=== PATIENT | female | born 1930 | race African-American/Black ===

== ENCOUNTER 2020-12-26 13:18 | Emergency (ER) | payer OTHER ==
--- OUTSIDE RECORDS SUMMARY | 2020-12-26 13:27 | XMS REPORT | Continuity of Care Document ---
:1930 Author Organization [facility] t Address [address] [place] [address] Care Team Providers Name Role Phone BOUBACAR Primary Care Physician Unavailable Pob, Lab Main Attending Clinician Unavailable Doctor Unassigned, Name Attending Clinician Unavailable Pili Waggoner Attending Clinician PRATIK Attending Clinician Unavailable Carlos CAMARA Attending Clinician ALBERTO ARENAS Attending Clinician Unavailable Mario Attending Clinician Abhi Acosta Attending Clinician SHELBIE Attending Clinician Unavailable Jose Reyes Attending Clinician Ibrahima Kasper Attending Clinician Delta CHUNG Admitting Clinician Unavailable SHELBIE Admitting Clinician Unavailable Ibrahima Kasper Admitting Clinician Payers Payer Name Policy Type Policy Number Effective Date Expiration Date S our [employer] G[employer]US [id number] 2020 MEDICARE HMO 00:00:00 Problems Condition Condition Condition Status Onset Resolution Last Treating Co mments Source Name Details Category Date Date Treatment Clinician Date ABD PAIN Diagnosis Active 2017-12-20 M emoria 2-18 14:26:00 l ABD PAIN 11:58: [place] n 00 Active 12/07/2017 [facility] COUGH Diagnosis Active 2017-11-20 Mem oria 11-19 04:43:00 l COUGH 00:00: Harry 00 Active 11/19/2017 [facility] Kamas HYPOTENSIO Diagnosis Active 2016-05-15 Memoria N 05-15 11:43:00 l 09:00: Kamas HYPOTENSIO 00 N Active 05/15/2016 [facility] CHEST Diagnosis Active 2016-05-17 Mem oria PAIN, 05-15 10:12:00 l POSSIBLE CHEST 09:00: Kamas ACS, UTI PAIN, 00 POSSIBLE ACS, UTI Active 05/15/2016 [facility] SMALL Diagnosis Active 2014-05-09 Mem oria BOWEL 05-07 13:11:00 l OBSTRUCTIO SMALL 00:00: Nataly nn N BOWEL 00 OBSTRUCTIO N Active 05/07/2014 [facility] DIARRHEA, Diagnosis Active 2012-03-10 Memoria VOMITING 03-09 10:57:00 l 00:00: Kamas DIARRHEA, 00 VOMITING Active 03/09/2012 [facility] URINARY Diagnosis Active 2012-02-24 Me moria PAIN -07 09:47:00 l URINARY 06:00: Kamas PAIN 00 Active 02/24/2012 [facility] SYNCOPE Diagnosis Active 2011-12-17 Me moria 2-15 08:37:00 l SYNCOPE 10:00: Harry 00 Active 12/04/2011 [facility] HIGH BLOOD Diagnosis Active 2011-11-03 Memoria PRESSURE 1-15 12:50:00 l HIGH 00:00: Kamas BLOOD 00 PRESSURE Active 11/03/2011 [facility] CVA Diagnosis Active 2011-11-04 Mem oria 1-15 18:59:00 l CVA 00:00: Harry 00 Active 11/03/2011 [facility] Acute Problem 2018-02-26 Memor ia pharyngiti 15:28:19 l s, Acute Harry unspecifie pharyngiti d s, unspecifie d 02/26/2018 [facility] Essential Problem 2018-03-15 Me moria (primary) 11:43:28 l hypertensi [place] on Essential (primary) hypertensi on 03/15/2018 [facility] Type 2 Problem 2018-03-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 11:43:28 l mellitus Type 2 [place] n without diabetes complicati mellitus ons without complicati ons 03/15/2018 [facility] intermediate designer Problem 2018-03-15 Me moria (current) 11:43:28 l use of Long Harry oral term hypoglycem (current) ic drugs use of oral hypoglycem ic drugs 03/15/2018 [facility] [D]Headach Problem Active 2018-03-15 M emoria e 11:43:28 l (context-d [place] n ependent [D]Headach category) e (context-d ependent category) Active Problem 03/15/2018 [facility] Malignant Problem Active 2018-03-15 Me moria tumor of 11:43:28 l colon Kamas (disorder) Malignant tumor of colon (disorder) Active Problem 03/15/2018 [facility] Cerebrovas Problem Active 2018-03-15 M emoria cular 11:43:28 l accident Harry (disorder) Cerebrovas cular accident (disorder) Active Problem 03/15/2018 [facility] Diabetes Problem Active 2018-03-15 Mem oria mellitus 11:43:28 l (disorder) Diabetes He rmann mellitus (disorder) Active Problem 03/15/2018 [facility] Hypertensi Problem Active 2018-03-15 M emoria ve 11:43:28 l disorder, Kamas systemic Hypertensi arterial ve (disorder) disorder, systemic arterial (disorder) Active Problem 03/15/2018 [facility] Hyperthyro Problem Active 2018-03-15 M emoria idism 11:43:28 l (disorder) [place] Hyperthyro idism (disorder) Active Problem 03/15/2018 [facility] Numbness Problem Active 2018-03-15 Mem oria of face 11:43:28 l (finding) Numbness Her genao of face (finding) Active Problem 03/15/2018 [facility], [facility] Transient Problem Active 2018-03-15 Me moria ischemic 11:43:28 l attack Kamas (disorder) Transient ischemic attack (disorder) Active Problem 03/15/2018 [facility] Asthenia Problem Active 2018-03-15 Mem oria (finding) 11:43:28 l Asthenia [place] n (finding) Active Problem 03/15/2018 [facility] [D]Headach Problem Active 2012-03-12 M emoria e 09:30:35 l Harry [D]Headach e Active Problem 03/12/2012 [facility] Weakness Problem Active 2012-03-12 Mem oria 09:30:35 l Weakness [place] Active Problem 03/12/2012 [facility] Temporal Problem Active 2014-01-12 Mem oria Arteritis 23:02:23 l Temporal [place] Arteritis Active [facility] Type 2 Problem Active 2014-01-12 Memor ia Diabetes 23:02:23 l Mellitus Type 2 [place] Diabetes Mellitus Active [facility] Atheroscle Problem Active 2014-01-12 M emoria rosis 23:02:23 l Kamas Atheroscle rosis Active [facility] A Fall Problem Active 2014-01-12 Memor ia 23:02:23 l A Fall Kamas Active [facility] Insomnia Problem Active 2014-01-12 Mem oria 23:02:23 l Insomnia [place] n Active 01/12/2014 [facility] 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 Active 4 [facility] Headache Problem Active 2014-01-12 Mem oria 23:02:23 l Headache [place] n Active 01/12/2014 [facility] Neck Pain Problem Active 2014-01-12 Me moria 23:02:23 l Neck Kamas Pain Active 4 [facility] Disturbanc Problem Active 2014-01-12 M emoria e Of Gait 23:02:23 l Harry Disturbanc e Of Gait Active 4 [facility] Occipital Problem Active 2014-01-12 Me moria Neuralgia 23:02:23 l Kamas Occipital Neuralgia Active [facility] Peripheral Problem Active 2014-01-12 M emoria Neuropathy 23:02:23 l Kamas Peripheral Neuropathy Active 01/12/2014 [facility] CVA Diagnosis Active 2011-11-04 Mem oria 18:59:00 l CVA Kamas Active [facility] SYNCOPE Diagnosis Active 2011-12-17 Me moria AND 08:37:00 l COLLAPSE SYNCOPE Nataly nn AND COLLAPSE Active [facility] SMALL Diagnosis Active 2014-05-09 Mem oria INTEST INJ 13:11:00 l NEC-CL SMALL Harry INTEST INJ NEC-CL Active [facility] History of Past Illness Condition Condition Condition Status Onset Resolution Last Treating Co mments Source Name Details Category Date Date Treatment Clinician Date Nausea Problem 2018-03-15 2018-03-15 M emoria - 11:43:28 11:43:28 l Nausea 06:00: Harry 00 8 03/15/2018 [facility] Urinary Problem 2018-03-15 2018-03-15 Memoria tract - 11:43:28 11:43:28 l infection, Urinary 06:00: Her genao site not tract 00 specified infection, site not specified 12/07/2017 03/15/2018 [facility] Cough Problem 2018-02-26 2018-02-26 M emoria 2- 15:28:19 15:28:19 l Cough 04:22: Kamas 21 11/26/2017 02/26/2018 [facility] COUGH Problem 2018-02-26 2018-02-26 M emoria 2- 15:28:19 15:28:19 l COUGH 06:00: Kamas 00 11/20/2017 02/26/2018 [facility] Allergies, Adverse Reactions, Alerts Allergy Allergy Status Severity Reaction(s) Onset Inactive Treating Comm ents Source Name Type Date Date Clinician No Known No Known Active Memori a Drug Drug l Allergie Allergie [place] miller s Family History Family Member Diagnosis Comments Start Date Stop Date Source Unknown Family Family History 2014-01-12 2014-01-12 Kade Deras Member 23:02:23 23:02:23 Social History Social Habit Start Date Stop Date Quantity Comments Source Social History 2014-01-12 2014-01-12 Aydee greenfield 23:02:23 23:02:23 Smoking Status Start Date Stop Date Source Social History Aydee Mcdonald Medications Ordered Filled Start Stop Current Ordering Indication Dosage Frequency Signature Comments Components Source Medication Medication Date Date Medication? Clinician (SIG) Name Name Ondansetron 2018- Yes 4 mg = 1 Me moria 4 MG 2-19 tab, PO, l Disintegrat 03:53: TID, PRN He rmann ing Tablet 00 Nausea / Vomiting, Dissolve tab under tongue, # 10 tab, 0 Refill(s) cefdinir No 300 mg = 1 Mem oria 300 MG Oral 2-19 cap, PO, l Capsule 03:53: BID, X 10 Nataly nn 00 day, # 20 cap, 0 Refill(s) Sodium 2017- No 250 mL, Memoria Chloride 2-19 Route: l 0.9% IV 02:17: IVPB, Kamas Start date: 12/07/17 20:17:00 [employer], Duration: 30 day, Stop date: 01/06/18 21:16:00 CDT, PRN Line Flush Ceftriaxone No Notes: Amandeep demond 2-19 (Same As: l 01:57: Rocephin). Harry Use with 100 mL NS and infuse over 30 min MEDICATION WASTE Product Size: 1000 mg Product Wasted: _0__ mg Omnipaque 2017- No Notes: Memori a 300 -19 (Same l injectable 00:14: as:Omnipaq H ermann solution 00 ue 300). WASTE: F/P - Black; E - Municipal Trash Bin Ondansetron 2018-0 No Notes: Amandeep demond 2-19 (Same as: l 00:13: Zofran) Kamas MEDICATION WASTE Product Size: 4 mg Product Wasted: ___ mg Sodium 2017-0 No 1,000 mL, Memori a Chloride 2-19 1000 l 0.9% 00:12: ml/hr, Harry (Bolus) IV 00 Infuse Over: 1 hr, Route: IV, 1,000, Drug form: INJ, ONCE, Priority: STAT, Dosing Weight 111.818 kg, Start date: 12/07/17 18:12:00 [employer], Stop date: 12/07/17 18:12:00 [employer] Saline No Notes: Memoria Flush 0.9% 12-07 (Same as: l 18:35: BD Harry 00 Posiflush) benzonatate No 100 mg = 1 Memoria 100 MG Oral 11-20 cap, PO, l Capsule 11:50: TID, X 7 [place] [Tessalon 00 day, # 21 Perles] cap, 0 Refill(s) Acetaminoph No 1 tab, Amandeep demond en 300 MG / 11-20 Route: PO, l Codeine 10:41: Drug Form: Herm jolynn Phosphate 00 TAB, 30 MG Oral Dosing Tablet Weight [Tylenol 115.909, with kg, ONCE, Codeine #3] STAT, Start date: 11/20/17 4:41:00 [employer], Stop date: 11/20/17 4:41:00 [employer] cefpodoxime Yes 200 mg = 1 Memoria 200 MG Oral 7-29 tab, PO, l Tablet 13:59: Q12H, X 7 [place] [Vantin] 13 day, # 14 tab, 0 Refill(s), Pharmacy: [facility] [id number] cefpodoxime No 200 mg = 1 Memoria 200 MG Oral 7-29 tab, PO, l Tablet 13:53: Q12H, X 7 [place] [Vantin] 00 day, # 14 tab, 0 Refill(s), Pharmacy: [facility] [id number] Hydrochloro No Notes: Amandeep demond thiazide 25 -28 (Same as: l MG Oral 14:00: Hydrodiuri Herm jolynn Tablet 00 l) With food. Clobetasol No Notes: 15 Me moria Propionate 7-28 gm tube l 0.5 MG/ML 14:00: (Same As: Her genao Topical 00 Temovate) Cream Aspirin 81 No Notes: Do Me moria MG Enteric 7-28 not crush l Coated 14:00: or chew. Kamas Tablet 00 (Same As: Ecotrin) Citalopram No Notes: Memor ia 7-28 (Same As: l 14:00: CeleXA) Toprol-XL No Notes: Memori a 50 mg oral - (Same as: l tablet, 09:17: Toprol XL) Herm jolynn extended 00 May split release tab, but do not crush. 24 HR No Notes: Memoria Metoprolol 7-28 (Same as: l Tartrate 50 09:16: Toprol XL) Kamas MG Extended May split Release tab, but Tablet do not [Toprol] crush. Lisinopril No Notes: Memor ia 7-28 (Same as: l 09:16: Prinivil, Zestril) Simvastatin No Notes: Amandeep demond - (Same as: l 02:00: Zocor) Saline No Notes: Memoria Flush 0.9% 05-16 (Same as: l 02:00: BD Posiflush) Rocephin No Notes: Memoria 7- (Same As: l 01:00: Rocephin). Use with 100 mL NS and infuse over 30 min MEDICATION WASTE Product Size: 1000 mg Product Wasted: ___ mg Metformin No Notes: Memori a hydrochlori -27 (Same as: l de 500 MG 22:00: Glucophage He rmann Oral Tablet ) Take with meal Labetalol No Notes: Memori a 7-27 With food. l 22:00: (Same as:Trandat e, Normodyne) Hydralazine No Notes: Amandeep demond Hydrochlori -27 (Same as: l de 100 MG 22:00: Apresoline He rmann Oral Tablet ) May interfere w/enteral feedings - Take With Food gabapentin No Notes: Memor ia 100 MG Oral -27 (Same as: l Capsule 22:00: Neurontin) Carbamazepi No Notes: Amandeep demond ne 7-27 With food. l 22:00: (Same As: Tegretol) Acetaminoph No Notes: Amandeep demond en 325 MG / 05-15 (Same as: l Hydrocodone 18:47: Rogers Nataly nn Bitartrate 00 325/5) Do 5 MG Oral not exceed Tablet 4gm/day of acetaminop hen. eslicarbaze Yes TK 1 T PO M emoria pine 05-15 HS l acetate 200 18:45: [place] n MG Oral 00 Tablet [Aptiom] Alprazolam No Notes: Memor ia 0.25 MG 05-15 With food l Oral Tablet 18:45: or milk Her genao 00 (Same as: Xanax) Hydralazine Yes 100 mg = 1 Memoria Hydrochlori 05-15 tab, PO, l de 100 MG 18:43: BID, # 60 Her genao Oral Tablet 00 tab, 0 Refill(s) carBAMazepi Yes 200 mg = 1 Memoria ne 200 mg 05-15 tab, PO, l oral tablet 18:43: BID, # 60 H ermann 00 tab, 3 Refill(s) Acetaminoph Yes 0 Memori a en 325 MG / 05-15 Refill(s) l Hydrocodone 18:43: Hcino n Bitartrate 00 5 MG Oral Tablet Alprazolam Yes 0.25 mg = Me moria 0.25 MG 05-15 1 tab, PO, l Oral Tablet 18:43: BID, PRN He rmann 00 anxiety, stress, # 20 tab, 0 Refill(s) lisinopril Yes 20 mg = 1 Me moria 20 mg oral 05-15 tab, PO, l tablet 18:43: Daily, # Kamas 00 30 tab, 0 Refill(s) labetalol Yes 200 mg = 1 Me moria 200 mg oral 05-15 tab, PO, l tablet 18:43: BID, # 180 Nataly nn 00 tab, 0 Refill(s) Saline No Notes: Memoria Flush 0.9% 05-15 (Same as: l 18:42: BD Harry 00 Posiflush) Nitroglycer No Notes: Amandeep demond in 05-15 (Same l 18:42: as:Nitroqu Kamas 00 ick, Nitrostat) "Do Not Crush" Sublingual tablet Rocephin No Notes: Memoria 05-15 (Same As: l 16:35: Rocephin). Harry 00 Use with 100 mL NS and infuse over 30 min MEDICATION WASTE Product Size: 1000 mg Product Wasted: ___ mg Vasotec No 1.25 mg, Memori a 05-15 Route: IV, l 15:14: ONCE, Kamas 00 Dosing Weight 116.364, kg, Priority: STAT, Start date: 05/15/16 10:14:00 CDT, Stop date: 05/15/16 10:14:00 CDT Aspirin No 325 mg, Memoria 05-15 Route: PO, l 15:13: Drug form: Kamas 00 TAB, ONCE, Dosing Weight 116.364, kg, Priority: STAT, Start date: 05/15/16 10:13:00 CDT, Stop date: 05/15/16 10:13:00 CDT Docusate Yes 100 mg, Memori a Sodium 100 7-22 PO, BID, # l MG Oral 17:21: 60 cap, 0 Nataly nn Capsule 00 Refill(s) Senna-gen Yes 8.6 mg = 1 Me moria 8.6 mg oral 7-22 tab, PO, l tablet 17:21: Bedtime, Kamas 00 for constipati on, # 25 tab, 0 Refill(s) gabapentin Yes 200 mg = 2 M emoria 100 MG Oral 7-21 cap, PO, l Capsule 20:06: QPM, # 720 Herm jolynn 00 cap, 0 Refill(s) simvastatin Yes 40 mg = 1 M emoria 40 mg oral 7-21 tab, PO, l tablet 20:06: Bedtime, # Nataly nn 00 30 tab, 0 Refill(s) Metformin Yes 500 mg = 1 Me moria hydrochlori 7-21 tab, PO, l de 500 MG 20:06: BID, # 30 Her genao Oral Tablet 00 tab, 0 Refill(s) citalopram Yes 20 mg = 1 Me moria 20 mg oral 7-21 tab, PO, l tablet 20:06: Daily, # Harry 00 30 tab, 0 Refill(s) Hydrochloro Yes 25 mg = 1 M emoria thiazide 25 -21 tab, PO, l MG Oral 20:06: Daily, # [place] n Tablet 00 30 tab, 0 Refill(s) metoprolol Yes 25 mg = 1 Me moria tartrate 25 -21 tab, PO, l mg oral 20:06: Daily, # [place] n tablet 00 60 tab, 0 Refill(s) Clobetasol Yes 1 appl, Amandeep demond Propionate 05-09 TOP, l 0.5 MG/ML 20:06: Daily, # Herm jolynn Topical 00 15 gm, 0 Cream Refill(s) metoprolol No 25 mg, Memor ia tartrate 05-09 Route: PO, l 14:00: Drug form: Harry TAB, Daily, Dosing Weight 127.273, kg, Start date: 05/09/14 9:00:00, Duration: 30 day, Stop date: 06/07/14 9:00:00 Aspirin / No 81 mg, Memori a Calcium 05-09 Route: PO, l Carbonate 14:00: Drug form: tony ECTAB, Daily, Dosing Weight 127.273, kg, Start date: 05/09/14 9:00:00, Duration: 30 day, Stop date: 06/07/14 9:00:00 NS 1,000 mL No 1,000 mL, M emoria 05-09 Rate: 100 l 12:50: ml/hr, Infuse over: 10 hr, Route: IV, Dosing Weight 127.273 kg, Total Volume: 1,000, Start date: 05/09/14 7:50:00, Duration: 30 day, Stop date: 06/08/14 7:49:00 Benadryl No Notes: Memoria 05-09 (Same as: l 05:44: Benadryl) Citalopram No 20 mg, Memor ia 05-08 Route: PO, l 22:00: Drug form: Kamas TAB, BID, Dosing Weight 127.273, kg, Start date: 05/08/14 17:00:00, Duration: 30 day, Stop date: 06/07/14 9:00:00 Citalopram No Notes: Memor ia 7-20 (Same As: l 17:00: CeleXA) Hydrochloro No Notes: Amandeep demond thiazide 7-20 (Same as: l 17:00: Hydrodiuri l) With food. metoprolol No Notes: Memor ia extended 7-20 (Same as: l release 17:00: Toprol XL) Do Not Crush iodixanol No Special Memor ia 7-20 Instructio l 16:43: ns: Dose = 2.2ml/kg, Max dose = 150ml -- "To be infused by Radiology Staff ONLY" Hydralazine No Notes: Amandeep demond 7-20 (Same as: l 15:46: Apresoline ) Push over 5 minutes Iohexol No Notes: Memoria 7-20 (Same l 12:35: as:Omnipaq ue 350). Insulin, No Notes: Memoria Aspart, 7-20 Roll in l Human 05:51: palms of hands gently; Do not shake vigorously . (Same as: NovoLOG) "single patient use only" Stable for 28 days at room temperatur e. Expires in days from ____Date Glucagon No 1 mg, Memoria 7-20 Route: IM, l 05:51: Drug form: PDR/INJ, PRN, Dosing Weight 127.273, kg, PRN Abnormal Lab Result, Priority: STAT, Start date: 05/08/14 0:51:00, Duration: 30 day, Stop date: 06/07/14 0:50:00 Dextrose No 12.5 gm, Memor ia 50% Syringe 7-20 25 mL, l 05:51: Route: IVP, Drug Form: INJ, Dosing Weight 127.273, kg, PRN, PRN Blood Glucose Results, Start date: 05/08/14 0:51:00, Duration: 30 day, Stop date: 06/07/14 0:50:00 Metoprolol No Notes: Memor ia 7-20 (Same as: l 05:00: Lopressor) Push over 2 minutes Ofirmev No Notes: Memoria 7-20 Infuse l 03:26: over 15 minutes Do not exceed 4gm/day of acetaminop hen Protonix No Notes: For Mem oria 7-20 IV push l 01:02: reconstitu te with 10 ml 0.9% sodium chloride and push over 2 minutes. (Same as: Protonix) Enoxaparin No Notes: Memor ia 7-20 (Same as: l 01:00: Lovenox) Labetalol No 10 mg, 2 Amandeep demond 7-20 mL, Route: l 00:57: IVP, Drug form: INJ, Q6H, Dosing Weight 127.273, kg, PRN Hypertensi on, Start date: 05/07/14 19:57:00, Duration: 3 doses or times, Stop date: Limited # of times Aspirin 81 No Notes: Memor ia MG Chewable 7-20 Take with l Tablet 00:54: food. D5W 1/2NS + No Notes: Amandeep demond KCL 20mEq/L 7-20 PREMIX IV l 1000ml 00:30: - Do Not Kamas (Premix) 00 Alter 1,000 mL Calcium No 1,000 mL, Memor ia Chloride 7-20 1,000 l 0.0014 00:30: ml/hr, Kamas MEQ/ML / 00 Infuse Potassium Over: 1 Chloride hr, Route: 0.004 IV, 1,000, MEQ/ML / Drug form: Sodium INJ, ONCE, Chloride Priority: 0.103 STAT, MEQ/ML / Dosing Sodium Weight Lactate 127.273 0.028 kg, Start MEQ/ML date: Injectable 05/07/14 Solution 19:30:00, Duration: 1 doses or times, Stop date: 05/07/14 19:30:00 Citalopram Yes (Active) Me moria Hydrobromid 3-26 l e 20 MG 23:02: Harry Oral Tablet 23 MetFORMIN Yes (Active) Mem oria HCl 500 MG 3-26 l Oral Tablet 23:02: [place] n 23 Advil 200 Yes (Active) Mem oria MG Oral 3-26 l Capsule 23:02: Kamas 23 Hydrochloro Yes (Active) M emoria thiazide 25 3-26 l MG Oral 23:02: Kamas Tablet 23 Hydrocodone Yes (Active) M emoria -Acetaminop 3-26 l hen 5-325 23:02: Harry MG Oral 23 Tablet Gabapentin Yes ; Start Amandeep demond 100 MG Oral 07-05 Date: l Capsule 05:00: 07/05/2013 Herm jolynn 00 (Active) Hydrocodone Yes ; Start Mem oria -Acetaminop 07-05 Date: l hen 5-500 05:00: 07/05/2013 He rmann MG Oral 00 (Active) Tablet Protonix 40 Yes (Active) M emoria MG Oral 4-09 l Tablet 03:34: Harry Delayed 10 Release TraZODone Yes (Active) Mem oria HCl 50 MG 4-09 l Oral Tablet 03:34: Chino n 10 Vitamin D Yes (Active) Mem oria 05908 UNIT 4-09 l CAPS 03:34: Harry 10 Senokot Yes (Active) Memor ia TABS 4-09 l 03:34: Harry 10 Soma 350 MG Yes (Active) M emoria Oral Tablet 4-09 l 03:34: Harry 10 Vicodin HP Yes (Active) Me moria TABS 4-09 l 03:34: Harry 10 Vicodin HP Yes (Active) Me moria TABS 9-28 l 23:32: Harry 08 Hydrocodone Yes ; Start Mem oria -Acetaminop 06-29 Date: l hen 5-500 05:00: 06/29/2012 He rmann MG Oral 00 (Active) Tablet Simvastatin Yes (Active) M emoria 40 MG Oral 7-02 l Tablet 22:46: Harry 08 Lunesta 2 Yes (Active) Mem oria MG Oral 7-02 l Tablet 22:46: Harry 08 Metoprolol Yes (Active) Me moria Succinate 7-02 l 25 MG Oral 22:46: Harry Tablet 08 Extended Release 24 Hour ALPRAZolam Yes (Active) Me moria 0.25 MG 7-02 l Oral Tablet 22:46: [place]ino n 08 TraMADol Yes (Active) Amandeep demond HCl 50 MG 7-02 l Oral Tablet 22:46: Chino walker 08 Lomotil Yes Habacuc 1 tab, PO, M emoria oral tablet 03-10 Reynolds QID, PRN, l 06:17: Shravan 10 tab, Harry 47 for loose stool, Substituti on Allowed, Maintenanc e, TAB barium No Habacuc 450 mL, Memor ia sulfate 03-10 Reynolds Route: PO, l 210% oral 03:07: Shravan ONCE, Nataly nn suspension 00 Start date: 03/09/12 22:07:00, Stop date: 03/09/12 22:07:00 Sodium No Shayan E 250 mL, Amandeep demond Chloride 03-10 [place] Route: l 0.9% IV 02:46: IVPB, Harry 00 Start date: 03/09/12 21:46:00, Duration: 30 day, Stop date: 04/08/12 21:45:00, PRN Line Flush BD Normal No Shayan E 10 mL, Me moria Saline 03-10 [place] Route: l Flush 02:46: IVP, Drug Harry 00 Form: INJ, PRN, PRN Line Flush, Start date: 03/09/12 21:46:00, Duration: 30 day, Stop date: 04/08/12 21:45:00 ondansetron No Habacuc 4 mg, 2 Memoria 03-10 Reynolds mL, Route: l 02:38: Shravan IVP, Drug [place] n 00 form: INJ, ONCE, Priority: STAT, Start date: 03/09/12 21:38:00, Stop date: 03/09/12 21:38:00 pantoprazol No Habacuc 40 mg, M emoria e 03-10 Reynolds Route: l 02:38: Shravan IVP, Drug [place] n 00 form: INJ, ONCE, For IV push reconstitu te with 10 ml 0.9% sodium chloride and push over at least 3 minutes, Priority: STAT, Start date: 03/09/12 21:38:00, Stop date: 03/09/12 21:38:00 Saline 2011- No Habacuc 5 ml, Memoria Flush 0.9% 5-22 Reynolds Route: l 02:38: Shravan IVP, Drug [place] n 00 Form: INJ, PRN, PRN Line Flush, Start date: 03/09/12 21:38:00, Duration: 24 hr, Stop date: 03/10/12 21:37:00 Sodium No Habacuc 500 mL, Memor ia Chloride 5-22 Reynolds Rate: l 0.9% 02:38: Shravan 1,000 Harry (Bolus) IV 00 ml/hr, 500 mL Infuse over: 0.5 hr, Route: IV, Dosing Weight 113 kg, Total Volume: 500, Bolus dose, Priority: STAT, Start date: 03/09/12 21:38:00, Duration: 1 doses or times, Stop date: 03/09/12 22:07:00 metFORmin Yes Substituti Me moria 500 mg oral 5-22 on Allowed l tablet 01:58: Harry 23 Lunesta 2 Yes Substituti Me moria mg oral 5-22 on Allowed l tablet 01:58: Harry 06 ALPRAZOLam Yes Substituti M emoria 0.5 mg oral 5-22 on Allowed l tablet, 01:57: Harry disintegrat 25 ing tramadol 50 Yes Substituti Memoria mg oral 5-22 on Allowed l tablet 01:57: Harry 04 simvastatin Yes Substituti Memoria 40 mg oral 5-22 on Allowed l tablet 01:56: Harry 40 metoprolol Yes Substituti M emoria 25 mg oral 5-22 on Allowed l tablet, 01:56: Harry extended 01 release Macrobid Yes Ab J 100 mg, 1 Memoria 100 mg oral 5-07 Derrick cap, PO, l capsule 15:35: BID, 20 Harry 13 cap, Substituti on Allowed, CAP insulin Yes Substituti Amandeep demond aspart 5-07 on Allowed l 14:36: Harry 58 predniSONE Yes Substituti M emoria 5-07 on Allowed l 14:36: Harry 52 Simvastatin 2012-0 Yes ; Start Mem oria 40 MG Oral 12-11 Date: l Tablet 06:00: 12/11/2011 Nataly nn 00 (Active) Metoprolol Yes ; Start Amandeep demond Succinate 12-11 Date: l 25 MG Oral 06:00: 12/11/2011 H ermann Tablet 00 (Active) Extended Release 24 Hour PredniSONE 2011- Yes ; Start Amandeep demond 20 MG Oral 12-11 Date: l Tablet 06:00: 12/11/2011 Nataly nn 00 (Active) TraMADol Yes ; Start Memori a HCl 50 MG 12-11 Date: l Oral Tablet 06:00: 12/11/2011 Kamas 00 (Active) NovoLIN N Yes ; Start Memor ia 100 UNIT/ML 12-11 Date: l Subcutaneou 06:00: 12/11/2011 Harry s 00 (Active) Suspension Lunesta 2 Yes ; Start Memor ia MG Oral 12-11 Date: l Tablet 06:00: 12/11/2011 Nataly nn 00 (Active) ALPRAZolam Yes ; Start Amandeep demond 0.5 MG Oral 12-11 Date: l Tablet 06:00: 12/11/2011 Nataly nn 00 (Active) Metoprolol Yes ; Start Amandeep demond Succinate 12-11 Date: l ER 25 MG 06:00: 12/11/2011 Her genao Oral Tablet 00 (Active) Extended Release 24 Hour Metoprolol Yes Cathy 25 mg, 1 Memoria Succinate 2-17 [place] tab, PO, l ER 25 mg 19:10: on Daily, 30 Herm jolynn oral 41 tab, tablet, Substituti extended on release Allowed, ERTAB simvastatin Yes Umberto 40 mg, 1 Me moria 40 mg oral 2-17 Chibueze tab, PO, l tablet 17:35: Osuagwu Bedtime, Herm jolynn 39 30 tab, Substituti on Allowed, TAB predniSONE Yes Umberto 30 mg, 3 Mem oria 10 mg oral 2-17 [place]ze tab, PO, l tablet 17:35: Osuagwu Daily, 42 Her genao 32 tab, Substituti on Allowed, TAB Metoprolol No Cathy 25 mg, 1 Memoria Succinate 2-17 [place]rell tab, PO, l ER 25 mg 17:34: on Daily, 30 Herm jolynn oral 46 tab, tablet, Substituti extended on release Allowed, ERTAB Metoprolol 2011- No Cathy 25 mg, 1 Memoria Succinate 2-17 [place] tab, l ER 25 mg 17:30: on Route: PO, Her genao oral 00 Drug form: tablet, ERTAB, extended Daily, release Start date: 12/06/11 11:30:00, Duration: 30 day, Stop date: 01/05/12 9:00:00 predniSONE 2011- No Cathy 40 mg, Me moria 2-17 [place] Route: PO, l 15:00: on Drug form: Harry 00 TAB, Daily, Start date: 12/06/11 9:00:00, Duration: 30 day, Stop date: 01/04/12 9:00:00 simvastatin 2011-0 No Cathy 40 mg, 1 Memoria 2-17 [place] tab, l 03:00: on Route: PO, Harry 00 Drug form: TAB, Bedtime, Start date: 12/05/11 21:00:00, Duration: 30 day, Stop date: 01/03/12 21:00:00 Os-Devon 500 2011- No Cathy 1 tab, Me moria + D 2-16 [place] Route: l 23:00: on CHEW, Drug Harry Form: TAB, BID, Start date: 12/05/11 17:00:00, Duration: 30 day, Stop date: 01/04/12 9:00:00 Protonix 2011-0 No Cathy 40 mg, 1 Me moria 2-16 [place] tab, l 22:30: on Route: PO, Kamas 00 Drug form: ECTAB, Before Dinner, Start date: 12/05/11 16:30:00, Duration: 30 day, Stop date: 01/03/12 16:30:00 predniSONE 2011-0 No Cathy 30 mg, 3 Memoria 2-16 [place] tab, l 19:00: on Route: PO, Kamas 00 Drug form: TAB, Daily, Start date: 12/05/11 13:00:00, Duration: 30 day, Stop date: 01/04/12 9:00:00 trazodone No Cathy 25 mg, 0.5 Memoria 2-16 [place] tab, l 17:35: on Route: PO, Drug form: TAB, Bedtime, PRN Insomnia, Start date: 12/05/11 11:35:00, Duration: 30 day, Stop date: 01/04/12 11:34:00 Lunesta No Cathy 2 mg, Memori a 2-16 [place] Route: PO, l 17:30: on Drug form: TAB, Bedtime, PRN as needed for insomnia, Start date: 12/05/11 11:30:00, Duration: 30 day, Stop date: 01/04/12 11:29:00 glucagon No Cathy 1 mg, Memor ia 2-16 [place] Route: IM, l 16:22: on Drug form: PDR/INJ, PRN, PRN Blood Glucose Results, Start date: 12/05/11 10:22:00, Duration: 30 day, Stop date: 01/04/12 11:21:00 Dextrose No Cathy 25 gm, 50 M emoria 50% Syringe 2-16 [place] mL, Route: l 16:22: on IVP, Drug Form: INJ, PRN, PRN Blood Glucose Results, Start date: 12/05/11 10:22:00, Duration: 30 day, Stop date: 01/04/12 11:21:00 insulin No Cathy 4 unit, Amandeep demond aspart 2-16 [place]rell 0.04 mL, l 16:22: on Route: SUB-Q, Drug form: SOLN, TID-Before Meals, PRN Blood Glucose Results, Start date: 12/05/11 10:22:00, Duration: 30 day, Stop date: 01/04/12 10:21:00 NovoLog No low-dose Memori a FlexPen 2-16 sliding l 15:27: scale, Harry 23 SUB-Q, TID, Substituti on Allowed simvastatin No 40 mg, 1 Me moria 40 mg oral 2-16 tab, PO, l tablet 15:27: 30 tab, Kamas 10 Substituti on Allowed, TAB Protonix 40 Yes Cathy 40 mg, 1 Memoria mg oral 2-16 [place] tab, PO, l enteric 15:26: on Daily, 30 Nataly nn coated 55 tab, tablet Substituti on Allowed, ECTAB predniSONE No 20 mg, 1 Mem oria 20 mg oral 2-16 tab, PO, l tablet 15:26: BID, Harry 21 Substituti on Allowed Os-Devon 500 Yes Cathy CHEW, Mem oria + D 2-16 [place] Substituti l 15:25: on on Kamas 24 Allowed, Maintenanc e Lunesta 2 Yes Cathy 2 mg, 1 Me moria mg oral 2-16 [place]rell tab, PO, l tablet 15:24: on Bedtime, Harry 14 PRN, 30 tab, as needed for insomnia, Substituti on Allowed citalopram No 20 mg, 1 Mem oria 20 mg oral 2-16 tab, PO, l tablet 15:23: Daily, 30 Chino n 54 tab, Substituti on Allowed, TAB Saline No Cathy 5 ml, Memoria Flush 0.9% 2-16 [place] Route: l 03:00: on IVP, Drug Harry 00 Form: INJ, Q12H, Start date: 12/04/11 21:00:00, Duration: 30 day, Stop date: 01/03/12 9:00:00 docusate No Cathy 100 mg, 1 M emoria 2-15 [place] cap, l 23:00: on Route: PO, Harry 00 Drug form: CAP, BID, Start date: 12/04/11 17:00:00, Duration: 30 day, Stop date: 01/03/12 9:00:00 heparin No Cathy 5,000 Memori a 5000 2-15 [place]Darrell unit, 1 l units/mL 22:00: on mL, Route: Her genao injectable 00 SUB-Q, solution Drug form: INJ, Q8H, Start date: 12/04/11 16:00:00, Duration: 30 day, Stop date: 01/03/12 8:00:00 Saline 2011-0 No Cathy 5 ml, Memoria Flush 0.9% 2-15 [place] Route: l 21:55: on IVP, Drug Form: INJ, PRN, PRN Line Flush, Start date: 12/04/11 15:55:00, Duration: 30 day, Stop date: 01/03/12 16:54:00 Senna 2011- No Cathy 8.6 mg, 1 Amandeep demond Smooth 2-15 [place] tab, l 21:55: on Route: PO, Drug form: TAB, Q12H, PRN Constipati on, Start date: 12/04/11 15:55:00, Duration: 30 day, Stop date: 01/03/12 15:54:00 acetaminoph No Cathy 650 mg, 2 Memoria en 2-15 [place]rell tab, l 21:55: on Route: PO, Drug form: TAB, Q4H, PRN Pain/Fever , Start date: 12/04/11 15:55:00, Duration: 30 day, Stop date: 01/03/12 15:54:00 acetaminoph No Kj K 2 tab, Me moria en-hydrocod - [place] Route: PO, l one 325 21:03: Drug Form: Herm jolynn mg-5 mg 00 TAB, Q4H, oral tablet PRN Pain, Start date: 11/05/11 15:03:00, Duration: 30 day, Stop date: 12/05/11 15:02:00 acetaminoph 0 No Kj K 1 tab, Me moria en-hydrocod -17 [place] Route: PO, l one 325 21:02: Drug Form: Herm jolynn mg-5 mg 00 TAB, Q4H, oral tablet PRN Pain, Start date: 11/05/11 15:02:00, Duration: 30 day, Stop date: 12/05/11 15:01:00 morphine 2011-0 No Bri B 2 mg, Memor ia Sulfate 11-05 [place]va Route: l 19:20: IVP, ONCE, Start date: 11/05/11 13:20:00, Stop date: 11/05/11 13:20:00 morphine 2011- No Bri B 2 mg, Memor ia Sulfate 11-05 [place]va Route: l 19:12: IVP, ONCE, Harry 00 Start date: 11/05/11 13:12:00, Stop date: 11/05/11 13:12:00 Dextrose 5% No Kj K 1,000 mL, Memoria with 0.45% 11-05 [place] Rate: 75 l NaCl IV 06:00: ml/hr, Harry 1,000 mL 00 Infuse over: 13.3 hr, Route: IV, Total Volume: 1,000, Start date: 11/05/11 0:00:00, Duration: 30 day, Stop date: 12/04/11 23:59:00 calcium-vit No Kj K 1 tab, Me moria montesinos D 250 - [place] Route: PO, l mg-125 23:00: Drug Form: Nataly nn units oral 00 TAB, BID, tablet Start date: 11/04/11 17:00:00, Duration: 30 day, Stop date: 12/04/11 9:00:00 Pepcid No Kj K 20 mg, 2 Memor ia -16 [place] mL, Route: l 22:00: IVP, Drug form: INJ, Q24H, Start date: 11/04/11 16:00:00, Duration: 30 day, Stop date: 12/03/11 16:00:00 aspirin 325 No Kj K 325 mg, 1 Memoria mg tablet 16 [place] tab, l 15:00: Route: PO, Kamas Drug form: TAB, Daily, Start date: 11/04/11 9:00:00, Duration: 30 day, Stop date: 12/03/11 9:00:00 metoprolol No Kj K 25 mg, 1 M emoria -16 [place] tab, l 15:00: Route: PO, Harry Drug form: ERTAB, Daily, Start date: 11/04/11 9:00:00, Duration: 30 day, Stop date: 12/03/11 9:00:00 hydrochloro No Kj K 12.5 mg, Memoria thiazide 25 1-16 [place] 0.5 tab, l mg oral 15:00: Route: PO, Herm jolynn tablet 00 Drug form: TAB, Daily, Start date: 11/04/11 9:00:00, Duration: 30 day, Stop date: 12/03/11 9:00:00 Prinivil 2011- No Kj K 20 mg, 1 Mem oria 1-16 [place] tab, l 15:00: Route: PO, Kamas 00 Drug form: TAB, Daily, Start date: 11/04/11 9:00:00, Duration: 30 day, Stop date: 12/03/11 9:00:00 Xanax 2011- No Kj K 0.25 mg, 1 Amandeep demond 1-16 [place] tab, l 04:18: Route: PO, Harry 00 Drug form: TAB, Q6H, PRN Anxiety, Start date: 11/03/11 22:18:00, Duration: 30 day, Stop date: 12/03/11 22:17:00 Restoril No Kj K 15 mg, 1 Mem oria 1-16 [place] cap, l 04:18: Route: PO, Haryr 00 Drug form: CAP, Bedtime, PRN Sleep, Start date: 11/03/11 22:18:00, Duration: 30 day, Stop date: 12/03/11 22:17:00 tramadol 50 No Kj K 100 mg, 2 Memoria mg oral 1-16 [place] tab, l tablet 04:17: Route: PO, Nataly nn 00 Drug form: TAB, Q4H, PRN Pain, Start date: 11/03/11 22:17:00, Duration: 30 day, Stop date: 12/03/11 22:16:00 Dextrose 5% 2011- No Kj K 1,000 mL, Memoria with 0.45% 1-16 [place] Rate: 75 l NaCl IV 03:58: ml/hr, Harry 1,000 mL 00 Infuse over: 13.3 hr, Route: IV, Total Volume: 1,000, Start date: 11/03/11 21:58:00, Duration: 30 day, Stop date: 12/03/11 21:57:00 methylPREDN No Kj K 50 mg, 0.8 Memoria ISolone -16 [place] mL, Route: l 03:00: IV, Drug form: INJ, Q12H, Start date: 11/03/11 21:00:00, Duration: 30 day, Stop date: 12/03/11 9:00:00 glucagon No Kj K 1 mg, Memori a 11-04 [place] Route: IV, l 02:37: Drug form: Harry PDR/INJ, PRN, PRN Blood Glucose Results, Start date: 11/03/11 20:37:00, Duration: 30 day, Stop date: 12/03/11 20:36:00 Dextrose No Kj K 50 mL, Memor ia 50% in 11-04 [place] Route: l Water IV 02:37: IVP, PRN, Herm Blood Glucose Results, Start date: 11/03/11 20:37:00, Duration: 30 day, Stop date: 12/03/11 20:36:00 NovoLog No Kj K 5 unit, Memor ia FlexPen -16 [place] 0.05 mL, l 02:37: Route: Harry SUB-Q, Drug form: SOLN, Sliding Scale, PRN Blood Glucose Results, Start date: 11/03/11 20:37:00, Duration: 30 day, Stop date: 12/03/11 20:36:00 NovoLog 2011-0 No Kj K 2 unit, Memor ia FlexPen -16 [place] 0.02 mL, l 02:36: Route: Kamas SUB-Q, Drug form: SOLN, Sliding Scale, PRN Blood Glucose Results, Start date: 11/03/11 20:36:00, Duration: 30 day, Stop date: 12/03/11 20:35:00 Tylenol No Kj K 650 mg, 2 Mem oria -16 [place] tab, l 02:35: Route: PO, Kamas 00 Drug form: TAB, Q4H, PRN Pain/Fever , Start date: 11/03/11 20:35:00, Duration: 30 day, Stop date: 12/03/11 20:34:00 Dulcolax No Kj K 10 mg, 1 Mem oria Laxative 16 [place] supp, l 02:34: Route: AK, Drug form: SUPP, Daily, PRN Constipati on, Start date: 11/03/11 20:34:00, Duration: 30 day, Stop date: 12/03/11 20:33:00 Trandate 2011- No Kj K 20 mg, 4 Mem oria -16 [place] mL, Route: l 02:34: IV, Drug form: INJ, Q10Min, PRN Elevated BP, Start date: 11/03/11 20:34:00, Duration: 30 day, Stop date: 12/03/11 20:33:00 Sodium No Kj K 1,000 mL, Amandeep demond Chloride 11-04 [place] Rate: 50 l 0.9% IV 02:33: ml/hr, Harry 1,000 mL 00 Infuse over: 20 hr, Route: IV, Total Volume: 1,000, Start date: 11/03/11 20:33:00, Duration: 30 day, Stop date: 12/03/11 20:32:00 Sodium No Sabina 250 mL, Memori a Chloride 11-03 Ksenia Estrella Route: l 0.9% IV 20:44: IVPB, PRN, Herm Line Flush, Start date: 11/03/11 14:44:00, Duration: 30 day, Stop date: 12/03/11 14:43:00 BD Normal No Sabina 10 mL, Amandeep demond Saline 11-03 Ksenia Route: l Flush 20:44: IVP, Drug Form: INJ, PRN, PRN Line Flush, Start date: 11/03/11 14:44:00, Duration: 30 day, Stop date: 12/03/11 14:43:00 SoluMedrol No Sabina 125 mg, Me moria 11-03 Ksenia Route: l 19:59: IVP, ONCE, Start date: 11/03/11 13:59:00, Stop date: 11/03/11 13:59:00 Benadryl No Sabina 25 mg, Memor ia 1-15 [facility] Route: l 17:01: IVP, ONCE, Kamas 00 Priority: STAT, Start date: 11/03/11 11:01:00, Stop date: 11/03/11 11:01:00 Reglan 2011-0 No Sabina 10 mg, 2 Memor ia 1-15 Ksenia Estrella mL, Route: l 17:01: IV, Drug Kamas form: INJ, ONCE, Start date: 11/03/11 11:01:00, Stop date: 11/03/11 11:01:00 Sodium 2011-0 No Sabina 1,000 mL, Amandeep demond Chloride 1-15 [facility] Rate: l 0.9% 17:00: 1,000 Kamas (Bolus) IV 00 ml/hr, 1,000 mL Infuse over: 1 hr, Route: IV, Total Volume: 1,000, Bolus Dose, Priority: STAT, Start date: 11/03/11 11:00:00, Duration: 1 doses or times, Stop date: 11/03/11 11:59:00 Bactrim 2011-0 Yes Substituti Amandeep demond 1-15 on l 16:58: Allowed, Harry 05 Maintenanc e tramadol 0 Yes Substituti Mem oria 1-15 on Allowed l 16:57: Harry 53 Lunesta 2011-0 Yes Substituti Amandeep demond 1-15 on Allowed l 16:57: Harry 45 Fioricet 2011-0 Yes Substituti Mem oria 1-15 on l 16:57: Allowed, Harry 36 Maintenanc e hydrochloro 0 Yes Substituti Memoria thiazide 1-15 on Allowed l 16:57: Harry 26 lisinopril 2011-0 Yes Substituti M emoria 1-15 on Allowed l 16:57: Harry 21 metoprolol 2011-0 Yes Substituti M emoria 1-15 on Allowed l 16:57: Harry 13 Xanax 2011-0 Yes Substituti Memori a 1-15 on Allowed l 16:57: Harry 04 Vital Signs Vital Name Observation Time Observation Value Comments Source Temperature Oral (F) 2017-12-08 04:10:00 98.6 F [facility] Respitory Rate 2017-12-08 04:10:00 Memori al Harry Heart Rate 2017-12-08 04:10:00 [facility] Kamas Systolic (mm Hg) 2017-12-08 04:10:00 Amandeep rial Kamas Diastolic (mm Hg) 2017-12-08 04:10:00 Mem orial Harry Systolic (mm Hg) 2017-12-08 00:25:00 Amandeep rial Harry Diastolic (mm Hg) 2017-12-08 00:25:00 Mem orial Harry Temperature Oral (F) 2017-12-08 00:25:00 98.7 F [facility] Harry Respitory Rate 2017-12-08 00:25:00 Memori al Kamas Heart Rate 2017-12-08 00:25:00 [facility] Harry Systolic (mm Hg) 2017-12-07 22:33:00 Amandeep rial Harry Diastolic (mm Hg) 2017-12-07 22:33:00 Mem orial Kamas Respitory Rate 2017-12-07 22:33:00 Memori al Kamas Heart Rate 2017-12-07 22:33:00 [facility] Kamas Temperature Oral (F) 2017-12-07 22:33:00 98.6 F [facility] Kamas Height 2017-12-07 18:11:00 165.1 cm [facility] Kamas BMI Calculated 2017-12-07 18:11:00 Memori al Kamas Weight 2017-12-07 18:11:00 [facility] Harry Heart Rate 2017-11-20 11:58:00 [facility] Kamas Respitory Rate 2017-11-20 11:58:00 Memori al Harry Systolic (mm Hg) 2017-11-20 11:58:00 Amandeep rial Harry Diastolic (mm Hg) 2017-11-20 11:58:00 Mem orial Harry Temperature Oral (F) 2017-11-20 11:58:00 98.0 F [facility] Harry Weight 2017-11-20 10:28:00 [facility] Kamas Temperature Oral (F) 2017-11-20 10:28:00 98.1 F [facility] Harry Heart Rate 2017-11-20 10:28:00 [facility] Harry Respitory Rate 2017-11-20 10:28:00 Memori al Kamas Systolic (mm Hg) 2017-11-20 10:28:00 Amandeep rial Harry Diastolic (mm Hg) 2017-11-20 10:28:00 Mem orial Kamas Respitory Rate 2016-05-17 12:05:00 Memori al Harry Systolic (mm Hg) 2016-05-17 12:05:00 Amandeep rial Harry Diastolic (mm Hg) 2016-05-17 12:05:00 Mem orial Kamas Heart Rate 2016-05-17 12:05:00 [facility] Harry Temperature Oral (F) 2016-05-17 12:05:00 98.1 F [facility] Kamas Respitory Rate 2016-05-17 09:00:00 Memori al Harry Systolic (mm Hg) 2016-05-17 09:00:00 Amandeep rial Harry Diastolic (mm Hg) 2016-05-17 09:00:00 Mem orial Kamas Temperature Oral (F) 2016-05-17 09:00:00 97.7 F [facility] Kamas Heart Rate 2016-05-17 09:00:00 [facility] Kamas Diastolic (mm Hg) 2016-05-17 05:00:00 Mem orial Harry Respitory Rate 2016-05-17 05:00:00 Memori al Harry Heart Rate 2016-05-17 05:00:00 [facility] Harry Temperature Oral (F) 2016-05-17 05:00:00 98.8 F [facility] Kamas Systolic (mm Hg) 2016-05-17 05:00:00 Amandeep rial Kamas Height 2016-05-15 14:25:00 167.64 cm [facility] Harry BMI Calculated 2016-05-15 14:25:00 Memori al Harry Weight 2016-05-15 14:25:00 [facility] Kamas Respitory Rate 2014-05-10 16:10:00 Memori al Kamas Diastolic (mm Hg) 2014-05-10 16:10:00 Mem orial Kamas Systolic (mm Hg) 2014-05-10 16:10:00 Amandeep rial Kamas Heart Rate 2014-05-10 16:10:00 [facility] Harry Temperature Oral (F) 2014-05-10 16:10:00 97.9 F [facility] Kamas Diastolic (mm Hg) 2014-05-10 13:21:00 Mem orial Harry Respitory Rate 2014-05-10 13:21:00 Memori al Kamas Systolic (mm Hg) 2014-05-10 13:21:00 Amandeep rial Kamas Heart Rate 2014-05-10 13:21:00 [facility] Harry Temperature Oral (F) 2014-05-10 13:21:00 97.8 F [facility] Kamas Diastolic (mm Hg) 2014-05-10 08:23:00 Mem orial Kamas Systolic (mm Hg) 2014-05-10 08:23:00 Amandeep rial Harry Respitory Rate 2014-05-10 08:23:00 Memori al Kamas Heart Rate 2014-05-10 08:23:00 [facility] Kamas Temperature Oral (F) 2014-05-10 08:23:00 98.3 F [facility] Kamas Height 2014-05-07 23:16:00 162.56 cm [facility] Harry BMI Calculated 2014-05-07 23:16:00 Memori al Kamas Weight 2014-05-07 23:16:00 [facility] Kamas Weight 2012-03-10 01:46:00 [facility] Harry Height 2012-03-10 01:46:00 162.56 cm [facility] Harry Weight 2012-02-24 14:12:00 [facility] Harry Systolic (mm Hg) 2011-12-06 21:00:00 Amandeep rial Harry Diastolic (mm Hg) 2011-12-06 21:00:00 Mem orial Harry Respitory Rate 2011-12-06 21:00:00 Memori al Harry Heart Rate 2011-12-06 21:00:00 [facility] Harry Temperature Oral (F) 2011-12-06 21:00:00 97.9 F [facility] Kamas Respitory Rate 2011-12-06 18:00:00 Memori al Kamas Temperature Oral (F) 2011-12-06 18:00:00 97.8 F [facility] Kamas Diastolic (mm Hg) 2011-12-06 18:00:00 Mem orial Harry Systolic (mm Hg) 2011-12-06 18:00:00 Amandeep rial Harry Heart Rate 2011-12-06 18:00:00 [facility] Kamas Diastolic (mm Hg) 2011-12-06 14:00:00 Mem orial Harry Heart Rate 2011-12-06 14:00:00 [facility] Kamas Respitory Rate 2011-12-06 14:00:00 Memori al Kamas Systolic (mm Hg) 2011-12-06 14:00:00 Amandeep rial Harry Temperature Oral (F) 2011-12-06 14:00:00 97.9 F [facility] Harry Height 2011-12-04 22:13:00 165.10 cm [facility] Harry Weight 2011-12-04 22:13:00 [facility] Kamas Weight 2011-12-04 19:06:00 [facility] Kamas Height 2011-12-04 19:06:00 165.10 cm [facility] Harry Temperature Oral (F) 2011-11-06 22:00:00 98.2 F [facility] Kamas Heart Rate 2011-11-06 22:00:00 [facility] Kamas Diastolic (mm Hg) 2011-11-06 22:00:00 Mem orial Kamas Respitory Rate 2011-11-06 22:00:00 Memori al Harry Systolic (mm Hg) 2011-11-06 22:00:00 Amandeep rial Kamas Diastolic (mm Hg) 2011-11-06 18:00:00 Mem orial Kamas Heart Rate 2011-11-06 18:00:00 [facility] Kamas Temperature Oral (F) 2011-11-06 18:00:00 97.9 F [facility] Harry Systolic (mm Hg) 2011-11-06 18:00:00 Amandeep rial Harry Respitory Rate 2011-11-06 18:00:00 Memori al Kamas Respitory Rate 2011-11-06 14:00:00 Memori al Kamas Systolic (mm Hg) 2011-11-06 14:00:00 Amandeep rial Harry Diastolic (mm Hg) 2011-11-06 14:00:00 Mem orial Harry Heart Rate 2011-11-06 14:00:00 [facility] Kamas Temperature Oral (F) 2011-11-06 14:00:00 97.7 F [facility] Harry Height 2011-11-03 16:38:00 167.64 cm [facility] Kamas Weight 2011-11-03 16:38:00 [facility]as Procedures Procedure Date / Time Performed Performing Clinician [facility] e Hernia repair [facility] Hysterectomy [facility] Total knee replacement [facility] Encounters Start End Encounter Admission Attending Care Care Encounter Source Date/Time Date/Time Type Type Clinicians Facility Department ID 2020-12-20 2020-12-20 Resident Physician Helder Dyer ALSAHARA [id number] 09:27:20 09:42:20 Visit Lab Main [place] [id number] [place] [id number] [facility] [id number] [address] 2020-12-20 2020-12-20 Orders Doctor WAGNER [id number] 00:00:00 00:00:00 Only Unassigned, JAMIA [id number] [place] [facility] [id number] 2020-12-19 2020-12-19 Outpatient [facility] [id number] 14:55:52 14:55:52 Shane walker 2020-04-04 2020-04-04 Emergency selena, [facility] [id number] 11:50:22 13:10:00 Jw Borrero 350.1.13.10 [place] [id number] [place] [id number] 2020-02-07 2020-02-07 Outpatient [facility] [id number] [place] 00:00:00 00:00:[address] 2019-12-27 2019-12-27 Outpatient [facility] [id number] [place] 00:00:00 00:00:[address] 2019-12-21 2019-12-21 Office REBECA Gonzalez [id number] 10:13:18 12:14:55 Visit Mohammad AMBULATOR [id number] Y [id number] 2019-12-20 2019-12-20 Outpatient [facility] [id number] [place] 00:00:00 00:00:[address] 2019-06-01 2019-06-01 Office REBECA Gonzalez [id number] 11:40:47 12:30:03 Visit Mohammad AMBULATOR [id number] Y [id number] 2017-12-07 2017-12-07 Outpatient Chuck Martin [facility] [id number] 11:58:00 22:28:00 09 2017-11-20 2017-11-20 Outpatient Liza Acosta [facility] [id number] 04:21:00 06:00:00 Abhi 08 2016-05-15 2016-05-17 Outpatient Milton [facility] [id number] 09:23:00 11:35:00 Delicia murrieta 2014-05-07 2014-05-10 Outpatient Majo [facility] [id number] 17:22:00 13:35:00 Vazquez Cathy Alexandra 2014-01-12 2014-01-12 Outpatient 3 3 [id number] 18:02:24 18:02:23 2013-11-04 2013-11-04 Outpatient 3 3 [id number] 17:46:54 17:46:53 2013-07-05 2013-07-05 Outpatient 3 3 [id number] 15:21:04 15:21:04 2013-07-05 2013-07-05 Outpatient 3 3 [id number] 11:03:11 11:03:10 2013-01-25 2013-01-25 Outpatient 3 3 [id number] 22:34:29 22:34:10 2012-07-17 2012-07-17 Outpatient 3 3 [id number] 18:32:22 18:32:08 2012-06-29 2012-06-29 Outpatient 3 3 [id number] 10:32:36 10:32:22 2012-04-20 2012-04-20 Outpatient 3 3 [id number] 17:46:20 17:46:08 2012-04-20 2012-04-20 Outpatient 3 3 [id number] 10:19:38 10:19:25 2012-04-20 2012-04-20 Outpatient 3 3 [id number] 09:39:28 09:39:15 Results Test Description Test Time Test Comments Results Result Comments Source POCT-GLUCOSE METER 2019-05-11 12:31:00 Test Item Value Reference Range Interpretation Comme nts POC-GLUCOSE METER ([employer]) (test 225 mg/dL 70-110 H TESTED AT [facility] [address] [facility] code = 1538) [facility] 7703 0 POCT-GLUCOSE [id number] 08:13:00 Test Item Value Reference Range Interpretation Comments POC-GLUCOSE METER 107 mg/dL 70-110 TESTED AT [facility] [address] ([employer]) (test code = BERTNE R [facility] 1538) [id number] 08:00:00 Test Item Value Reference Range Interpretation Comments PHOSPHORUS (BEAKER) (test code = 3.0 mg/dL 2.3-4.7 604) [id number] 08:00:00 Test Item Value Reference Range Interpretation Comments MAGNESIUM (BEAKER) (test code = 2.0 mg/dL 1.6-2.6 627) BASIC METABOLIC [id number] 08:00:00 Test Item Value Reference Range Interpretation Comments SODIUM (BEAKER) 136 meq/L 136-145 (test code = 381) POTASSIUM (BEAKER) 4.1 meq/L 3.5-5.1 (test code = 379) CHLORIDE (BEAKER) 106 meq/L 98-107 (test code = 382) CO2 (BEAKER) (test 22 meq/L 22-29 code = 355) BLOOD UREA NITROGEN 15 mg/dL 7-21 (BEAKER) (test code = 354) CREATININE (BEAKER) 0.99 mg/dL 0.57-1.25 (test code = 358) GLUCOSE RANDOM 103 mg/dL 70-105 (BEAKER) (test code = 652) CALCIUM (BEAKER) 10.0 mg/dL 8.4-10.2 (test code = 697) EGFR (BEAKER) (test 64 mL/min/1.73 ESTIMA ALO GFR IS code = 1092) sq m NOT ACCURATE CREATININE CLEARANCE IN PREDICTING GLOMERULAR FILTRATION RATE . ESTIMATED GFR I S NOT APPLICABLE FOR DIALYSIS PATIEN TS. POCT-GLUCOSE [id number] 21:29:00 Test Item Value Reference Range Interpretation Comments POC-GLUCOSE METER 95 mg/dL 70-110 TESTED AT [facility] 6720 (BEAKER) (test code = [facility] [address] 1538) POCT-GLUCOSE [id number] 11:16:00 Test Item Value Reference Range Interpretation Comments POC-GLUCOSE METER 131 mg/dL 70-110 H TESTED AT [facility] 6720 (BEAKER) (test code = [facility] 1538) [id number] HEMOGLOBIN [id number] 08:42:00 Test Item Value Reference Range Interpretation Comments HEMOGLOBIN A1C (BEAKER) (test code = 6.1 % 4.3-6.1 368) VITAMIN B12 AND [id number] 08:25:00 Test Item Value Reference Range Interpretation Comments VITAMIN B12 (BEAKER) (test code = > pg/mL 213-816 H 774) FOLATE (BEAKER) (test code = 362) 8.6 ng/mL >=7.0 TSH/FREE T4 IF [id number] 08:20:00 Test Item Value Reference Range Interpretation Comments THYROID STIMULATING HORMONE 2.18 uIU/mL 0.35-4.94 (BEAKER) (test code = 772) [id number] 06:32:00 Test Item Value Reference Range Interpretation Comments PHOSPHORUS (BEAKER) (test code = 2.3 mg/dL 2.3-4.7 604) [id number] 06:32:00 Test Item Value Reference Range Interpretation Comments MAGNESIUM (BEAKER) (test code = 1.7 mg/dL 1.6-2.6 627) BASIC METABOLIC [id number] 06:32:00 Test Item Value Reference Range Interpretation Comments SODIUM (BEAKER) 138 meq/L 136-145 (test code = 381) POTASSIUM (BEAKER) 3.6 meq/L 3.5-5.1 (test code = 379) CHLORIDE (BEAKER) 105 meq/L 98-107 (test code = 382) CO2 (BEAKER) (test 20 meq/L 22-29 L code = 355) BLOOD UREA NITROGEN 13 mg/dL 7-21 (BEAKER) (test code = 354) CREATININE (BEAKER) 0.93 mg/dL 0.57-1.25 (test code = 358) GLUCOSE RANDOM 105 mg/dL 70-105 (BEAKER) (test code = 652) CALCIUM (BEAKER) 10.3 mg/dL 8.4-10.2 H (test code = 697) EGFR (BEAKER) (test 69 mL/min/1.73 ESTIMA ALO GFR IS code = 1092) sq m NOT ACCURATE CREATININE CLEARANCE IN PREDICTING GLOMERULAR FILTRATION RATE . ESTIMATED GFR I S NOT APPLICABLE FOR DIALYSIS PATIEN TS. LIPID [id number] 06:32:00 Test Item Value Reference Range Interpretation Comments TRIGLYCERIDES (BEAKER) (test code = 174 mg/dL 540) CHOLESTEROL (BEAKER) (test code = 194 mg/dL 631) HDL CHOLESTEROL (BEAKER) (test code 72 mg/dL = 976) LDL CHOLESTEROL CALCULATED (BENJI) 87 mg/dL (test code = 633) Triglyceride Reference Range: Low Risk <150 Borderline 150-199 High Risk 200-499 Very High Risk >=500Cholesterol Reference Range: Low Risk <200 Borderline 200-239 High Risk >240HDL Cholesterol Reference Range: Low Risk >=60 High Risk <40LDL Cholesterol Reference Range: Optimal <100 Near Optimal 100-129 Borderline 130-159 High 160-189 Very High >=190MR, MRA, BRAIN, WITHOUT [id number] 06:17:00Reason for exam:- >Ischemic Stroke EvaluationFINAL REPORT MRI Brain without contrast Clinical History: Ischemic Stroke EvaluationIschemic Stroke Evaluation Technique: MRI of the brain utilizing axial T2, FLAIR, GRE, DWI; sag ittal and coronal T1-weighted images. MRA of the head utilizing 3-D uqkq-uf-oxrvlu technique, with 3-D reconstructions. MRA of the neck utilizing 2- D and 3-D tbvm-aa-wrzivd technique, with 3-D reconstructions. Comparisons: CTA head and neck dated 05/09/2019. Findings:MRI brainThere is no evidence of acute infarct or hemorrhage. Multiple bilateral T2 and FLAIR hyperintense white matter foci likely represent chronic white matter microvascular disease. Generalized parenchymal volume loss with commensurate enlargement of CSF spaces and ventricles. Prior remote right thalamic and pontine infarctions. There are no extra-axial fluid collections. The craniocervical junction is preserved. The major intracranial flow-voids appear patent. MRA head: Moderate stenosis of the proximal left C4 segment of the vertebral artery. Moderate stenosis of the distal right V4 segment of the vertebral artery. Basilar artery is patent. Moderate stenosis of the proximal P2 segment of the right posterior cerebral artery. Mild stenosis of the proximal P2 segment of the left posterior cerebral artery. Hypoplastic P1 segment right posterior cervical artery. Bilateral carotid siphon stenosis is better evaluated on recent CTA head and neck. Bilateral middle cerebral arteries are patent. There is no evidence of intracranialaneurysm or major branch vessel occlusion. MRA neck: Motion artifact limits evaluation. Origins of the bilateral vertebral arteries are not well seen secondary to technique. The previously describedmoderate to severe origin stenosis of the right vertebral artery is not identified. The remainder ofthe cervical vertebral arteries demonstrate antegrade flow. Approximately 35% stenosis of the proximal right internal carotid artery by NASCET criteria. The left internal carotid artery is patent. IMPRESSION:MRI brain: No evidence of acute infarct, hemorrhage, or hydrocephalus. Chronic ischemic and involutional changes as described above. MRA head: No evidence for a major agdaagux of Nathan proximal branch vessel occlusion. Multifocal intracranial stenosis as described above, most notably in the right P2 posterior cerebral artery and bilateral vertebral arteries. Carotid siphon stenosis is not wellevaluated, better seen on recent CTA head and neck. MRA neck: The previously described moderate to severe origin stenosis of the right vertebral artery is not identified. Approximately 35% stenosis ofthe proximal right internal carotid artery by NASCET criteria. The left internal carotid artery is patent. Signed: Manolo David MDReport Verified Date/Time: 05/10/2019 06:17:53 Electronicallysigned by: MANOLO DAVID MD on 05/10/2019 06:17 AMMR, MRA, NECK, WITHOUT IV CONTRAST 2019-05-10 06:17:00Reason for exam:->Ischemic Stroke EvaluationFINAL REPORT MRI Brain without contrast Clinical History: Ischemic Stroke EvaluationIschemic Stroke Evaluation Technique: MRI of the brain utilizing axial T2, FLAIR, GRE, DWI; sagittal and coronal T1-weighted images. MRA of the head utilizing 3-D qytm-xu-sajdlu technique, with 3-D reconstructions. MRA of the neck utilizing 2-D and 3-D eivo-dm-heogll technique, with 3-D reconstructions. Comparisons: CTA head and neck dated 05/09/2019. Findings:MRI brainThere is no evidence of acute infarct or hemorrhage. Multiple bilateral T2 and FLAIR hyperintense white matter foci likely represent chronic white matter microvascular disease. Generalized parenchymal volume loss with commensurate enlargement of CSF spaces and ventricles. Prior remote right thalamic and pontine infarctions. There are no extra-axial fluid collections. The craniocervical junction is preserved. The major intracranial flow-voids appear patent. MRA head: Moderate stenosis of the proximal left C4 segment of the vertebral artery. Moderate stenosis of the distal right V4 segment of the vertebral artery. Basilar artery is patent. Moderate stenosis of the proximal P2 segment of the right posterior cerebral artery. Mild stenosis of the proximal P2 segment of the left posterior cerebral artery. Hypoplastic P1 segment right posterior cervical artery. Bilateral carotid siphon stenosis is better evaluated on recent CTA head and neck. Bilateral middle cerebral arteries are patent. There is no evidence of intracranialaneurysm or major branch vessel occlusion. MRA neck: Motion artifact limits evaluation. Origins of the bilateral vertebral arteries are not well seen secondary to technique. The previously describedmoderate to severe origin stenosis of the right vertebral artery is not identified. The remainder ofthe cervical vertebral arteries demonstrate antegrade flow. Approximately 35% stenosis of the proximal right internal carotid artery by NASCET criteria. The left internal carotid artery is patent. IMPRESSION:MRI brain: No evidence of acute infarct, hemorrhage, or hydrocephalus. Chronic ischemic and involutional changes as described above. MRA head: No evidence for a major agdaagux of Nathan proximal branch vessel occlusion. Multifocal intracranial stenosis as described above, most notably in the right P2 posterior cerebral artery and bilateral vertebral arteries. Carotid siphon stenosis is not wellevaluated, better seen on recent CTA head and neck. MRA neck: The previously described moderate to severe origin stenosis of the right vertebral artery is not identified. Approximately 35% stenosis ofthe proximal right internal carotid artery by NASCET criteria. The left internal carotid artery is patent. Signed: Manolo David MDReport Verified Date/Time: 05/10/2019 06:17:53 Electronicallysigned by: MANOLO DAVID MD on 05/10/2019 06:17 AMMR, BRAIN, WITHOUT [id number] 06:17:00Reason for exam:->Ischemic Stroke EvaluationFINAL REPORT MRI Brain without contrast Clinical History: Ischemic Stroke Eval uationIschemic Stroke Evaluation Technique: MRI of the brain utilizing axial T2, FLAIR, GRE, DWI; sagittal and coronal T1-weighted images. MRA of the head utilizing 3-D aklc-sd-owgeyn technique, with 3-D reconstructions. MRA of the neck utilizing 2-D and 3-D zxmv-nt-qwiwhe technique, with 3-D reconstructions. Comparisons: CTA head and neck dated 05/09/2019. Findings:MRI brainThere is no evidence of acute infarct or hemorrhage. Multiple bilateral T2 and FLAIR hyperintense white matter foci likely represent chronic white matter microvascular disease. Generalized parenchymal volume loss with commensurate enlargement of CSF spaces and ventricles. Prior remote right thalamic and pontine infarctions. There are no extra-axial fluid collections. The craniocervical junction is preserved. The major intracranial flow-voids appear patent. MRA head: Moderate stenosis of the proximal left C4 segment of the ve rtebral artery. Moderate stenosis of the distal right V4 segment of the vertebral artery. Basilar artery is patent. Moderate stenosis of the proximal P2 segment of the right posterior cerebral artery. Mild stenosis of the proximal P2 segment of the left posterior cerebral artery. Hypoplastic P1 segment right posterior cervical artery. Bilateral carotid siphon stenosis is better evaluated on recent CTA head and neck. Bilateral middle cerebral arteries are patent. There is no evidence of intracranialaneurysm or major branch vessel occlusion. MRA neck: Motion artifact limits evaluation. Origins of the bilateral vertebral arteries are not well seen secondary to technique. The previously describedmoderate to severe origin stenosis of the right vertebral artery is not identified. The remainder ofthe cervical vertebral arteries demonstrate antegrade flow. Approximately 35% stenosis of the proximal right internal carotid artery by NASCET criteria. The left internal carotid artery is patent. IMPRESSION:MRI brain: No evidence of acute infarct, hemorrhage, or hydrocephalus. Chronic ischemic and involutional changes as described above. MRA head: No evidence for a major agdaagux of Nathan proximal branch vessel occlusion. Multifocal intracranial stenosis as described above, most notably in the right P2 posterior cerebral artery and bilateral vertebral arteries. Carotid siphon stenosis is not wellevaluated, better seen on recent CTA head and neck. MRA neck: The previously described moderate to severe origin stenosis of the right vertebral artery is not identified. Approximately 35% stenosis ofthe proximal right internal carotid artery by NASCET criteria. The left internal carotid artery is patent. Signed: Manolo David [facility] Verified Date/Time: 05/10/2019 06:17:53 Electronicallysigned by: MANOLO DAVID MD on 05/10/2019 06:17 AMPOCT-GLUCOSE [id number] 05:54:00 Test Item Value Reference Range Interpretation Comments POC-GLUCOSE METER 104 mg/dL 70-110 TESTED AT [facility] 6720 (BENJI) (test code = LAISHA [place]ANOS [place] 1538 [id number] CBC W/PLT COUNT & AUTO [id number] 05:45:00 Test Item Value Reference Range Interpretation Comments WHITE BLOOD CELL COUNT (BEAKER) 8.9 K/ L 3.5-10.5 (test code = 775) RED BLOOD CELL COUNT (BEAKER) 4.21 M/ L 3.93-5.22 (test code = 761) HEMOGLOBIN (BEAKER) (test code = 12.3 GM/DL 11.2-15.7 410) HEMATOCRIT (BEAKER) (test code = 37.8 % 34.1-44.9 411) MEAN CORPUSCULAR VOLUME (BEAKER) 89.8 fL 79.4-94.8 (test code = 753) MEAN CORPUSCULAR HEMOGLOBIN 29.2 pg 25.6-32.2 (BEAKER) (test code = 751) MEAN CORPUSCULAR HEMOGLOBIN CONC 32.5 GM/DL 32.2-35.5 (BEAKER) (test code = 752) RED CELL DISTRIBUTION WIDTH 13.6 % 11.7-14.4 (BEAKER) (test code = 412) PLATELET COUNT (BEAKER) (test 256 K/CU MM 150-450 code = 756) MEAN PLATELET VOLUME (BEAKER) 10.9 fL 9.4-12.3 (test code = 754) NUCLEATED RED BLOOD CELLS 0 /100 WBC 0-0 (BEAKER) (test code = 413) NEUTROPHILS RELATIVE PERCENT 63 % (BEAKER) (test code = 429) LYMPHOCYTES RELATIVE PERCENT 26 % (BEAKER) (test code = 430) MONOCYTES RELATIVE PERCENT 8 % (BEAKER) (test code = 431) EOSINOPHILS RELATIVE PERCENT 2 % (BEAKER) (test code = 432) BASOPHILS RELATIVE PERCENT 1 % (BEAKER) (test code = 437) NEUTROPHILS ABSOLUTE COUNT 5.58 K/ L 1.56-6.13 (BEAKER) (test code = 670) LYMPHOCYTES ABSOLUTE COUNT 2.31 K/ L 1.18-3.74 (BEAKER) (test code = 414) MONOCYTES ABSOLUTE COUNT (BEAKER) 0.73 K/ L 0.24-0.36 H (test code = 415) EOSINOPHILS ABSOLUTE COUNT 0.19 K/ L 0.04-0.36 (BEAKER) (test code = 416) BASOPHILS ABSOLUTE COUNT (BEAKER) 0.05 K/ L 0.01-0.08 (test code = 417) IMMATURE GRANULOCYTES-RELATIVE 0 % 0-1 PERCENT (BEAKER) (test code = 2801) TROPONIN [id number] 20:21:00 Test Item Value Reference Range Interpretation Comments TROPONIN I (BEAKER) (test code = 0.02 ng/mL 0.00-0.03 397) Troponin I (TnI) levels must be interpreted in the context of the presenting symptoms and the clinical findings. Elevated TnI levels indicate myocardial damage, but are not specific for ischemic heart disease. Elevated TnI levels are seen in patients with other cardiac conditions (including myocarditis and congestive heart failure), and slight TnI elevations occur in patients with other conditions, including sepsis, renal failure, acidosis, acute neurological disease, and persistent tachyarrhythmia.URINALYSIS W/ REFLEX URINE CULTURE 2019-05-09 20:21:00 Test Item Value Reference Range Interpretation Comments COLOR (BEAKER) (test code = 470) Light Yellow CLARITY (BEAKER) (test code = Hazy 469) SPECIFIC GRAVITY UA (BEAKER) 1.011 1.001-1.035 (test code = 468) PH UA (BEAKER) (test code = 467) 6.0 5.0-8.0 PROTEIN UA (BEAKER) (test code = 200 mg/dL Negative A 464) GLUCOSE UA (BEAKER) (test code = Negative Negative 365) KETONES UA (BEAKER) (test code = Negative Negative 371) BILIRUBIN UA (BEAKER) (test code Negative Negative = 462) BLOOD UA (BEAKER) (test code = Trace Negative A 461) NITRITE UA (BEAKER) (test code = Negative Negative 465) LEUKOCYTE ESTERASE UA (BEAKER) Small Negative A (test code = 466) UROBILINOGEN UA (BEAKER) (test 0.2 mg/dL 0.2-1.0 code = 463) RBC UA (BEAKER) (test code = 0 /HPF 519) WBC UA (BEAKER) (test code = 20 /HPF 520) BACTERIA (BEAKER) (test code = Many 517) MUCUS (BEAKER) (test code = Rare 1574) SQUAMOUS EPITHELIAL (BEAKER) 1 /HPF (test code = 516) SOURCE(BEAKER) (test code = 2795) B-TYPE NATRIURETIC FACTOR (BNP)2019-05-09 20:15:00 Test Item Value Reference Range Interpretation Comments B-TYPE NATRIURETIC PEPTIDE (BEAKER) 17 pg/mL 0-100 (test code = 700) [id number] 20:14:00 Test Item Value Reference Range Interpretation Comments PHOSPHORUS (BEAKER) (test code = 2.7 mg/dL 2.3-4.7 604) [id number] 20:14:00 Test Item Value Reference Range Interpretation Comments MAGNESIUM (BEAKER) (test code = 1.3 mg/dL 1.6-2.6 L 627) COMPREHENSIVE METABOLIC [id number] 20:14:00 Test Item Value Reference Range Interpretation Comments TOTAL PROTEIN 7.4 gm/dL 6.0-8.3 (BEAKER) (test code = 770) ALBUMIN (BEAKER) 4.2 g/dL 3.5-5.0 (test code = 1145) ALKALINE PHOSPHATASE 97 U/L 40-150 (BEAKER) (test code = 346) BILIRUBIN TOTAL 0.3 mg/dL 0.2-1.2 (BEAKER) (test code = 377) SODIUM (BEAKER) 140 meq/L 136-145 (test code = 381) POTASSIUM (BEAKER) 3.7 meq/L 3.5-5.1 (test code = 379) CHLORIDE (BEAKER) 108 meq/L 98-107 H (test code = 382) CO2 (BEAKER) (test 25 meq/L 22-29 code = 355) BLOOD UREA NITROGEN 17 mg/dL 7-21 (BEAKER) (test code = 354) CREATININE (BEAKER) 0.89 mg/dL 0.57-1.25 (test code = 358) GLUCOSE RANDOM 88 mg/dL 70-105 (BEAKER) (test code = 652) CALCIUM (BEAKER) 10.1 mg/dL 8.4-10.2 (test code = 697) AST (SGOT) (BEAKER) 15 U/L 5-34 (test code = 353) ALT (SGPT) (BEAKER) 15 U/L 6-55 (test code = 347) EGFR (BEAKER) (test 73 mL/min/1.73 INSUFF ICIENT code = 1092) sq m CLINICAL DATA T O CALCULATE ESTIM ATED GFR. RAD, CHEST, 1 VIEW, NON [id number] 20:02:00Reason for exam:->NEUROLOGIC PROBLEMShould this be performed at the bedside?->YesFINAL REPORT Chest, 1 view. History: Neurologic problem. Comparison: None deja ilable. IMPRESSION:Cardiomediastinal silhouette is exaggerated by technique. Atherosclerotic calcifications of the thoracic aorta. Prominent reticular lung markings bilaterally may be related to low lung volumes however interstitial pulmonary edema and pulmonary vascular congestion can have this appearance in the proper clinical setting. No lobar consolidation or pleural effusion. No pneumothorax. Osseous structures are unremarkable. Signed: Manolo David MDReport Verified Date/Time: 05/09/2019 20:02:43 CT, CAROTID, [id number] 20:00:00FINAL REPORT CT, CTANGIO BRAIN, CT, CAROTID, ANGIO INDICATION: Stroke COMPARISON: TECHNIQUE:Rapid acquisition spiral images were obtained between the aortic arch and the cranial vertex during intravenous contrast infusion to reconstruct axial images and angiographic 3D maximum intensity projections (MIP). 3-D volumetric reformatted images were created at a dedicated workstation. Precontrast images of the brain were also obtained. Stenosis evaluation reported in compliance with NASCET criteria. DOSE REDUCTION: Dose modulation, iterative reconstruction, and/or weight-based adjustment of the mA/kV was utilized to reduce the radiation dose to as low as reasonably achievable.CT head of the same date FINDINGS:CT BRAIN:Cerebral parenchyma: Unremarkable.Midline structures: Normally positioned.Cerebellum and brainstem: Normal.Ventricles: Normal volume.Extra-axial spaces: Unremarkable.Calvarium and skull base: Intact.Paranasal sinuses and mastoid air cells: Visible chambers are clear.Orbital contents: Included portions unremarkable. CTA BRAIN:Internal carotid arteries: Carotid siphon atheromatous plaques with moderate to severe multifocal stenosis.Middle cerebral arteries: Patent to distal branches.Anterior cerebral arteries: Patent. Intact A-comm.Basilar system: Patent vertebrobasilar system.Posterior cerebral arteries: Hypoplastic right P1 segment and mild stenosis of right P2 segment but sales representative advertising appear patent distally.Venous opacification: Major dural sinuses unremarkable for bolus timing.Additional findings: None. CTA NECK:Common carotid arteries: The common carotid arteries are normal in size. Cervical internal carotid arteries: Atheromatous plaques narrow the origin of the right ICA by approximately 50%. Atheromatous plaques at the origin of the left ICA without significant stenosis by NASCET criteria.Vertebral arteries: Moderate to severe stenosis at the origin ofthe right vertebral artery which is otherwise patent. Mild stenosis of the hypoplastic distal right V4 segment. Mild to moderate stenosis of the dominant left V4 segment due to calcified plaque.Arch anatomy: Conventional. Nonvascular findings:Osseous structures: Severe multilevel cervical spondylosis Intact calvarium and skull base.Cervical soft tissues: No adenopathy. Patent aerodigestive tract.Lungapices: No apical consolidation or pneumothorax. IMPRESSION:Intracranial, bilateral carotid siphon multifocal moderate to severe stenoses. Additional low-grade stenoses scattered throughout the anterior and posterior arterial circulations. Right ICA origin 50% stenosis. Patent left ICA origin. Moderate to severe focal stenosis of the right vertebral artery origin. Additional low-grade stenoses of thevertebral arteries described above. Signed: Lenny Sousa MDReport Verified Date/Time: 05/09/201920:00:21 CT, CTANGIO [id number] 20:00:00FINAL REPORT CT, CTANGIO BRAIN, CT, CAROTID, ANGIO INDICATION: Stroke COMPARISON: TECHNIQUE:Rapid acquisition spiral images were obtained between the aortic arch and the cranial vertex during intravenous contrast infusion to reconstruct axial images and angiographic 3D maximumintensity projections (MIP). 3-D volumetric reformatted images were created at a dedicated workstation. Precontrast images of the brain were also obtained. Stenosis evaluation reported in compliance with NASCET criteria. DOSE REDUCTION: Dose modulation, iterative reconstruction, and/or weight-based adjustment of the mA/kV was utilized to reduce the radiation dose to as low as reasonably achievable.CT head of the same date FINDINGS:CT BRAIN:Cerebral parenchyma: Unremarkable.Midline structures: Normally positioned.Cerebellum and brainstem: Normal.Ventricles: Normal volume.Extra- axial spaces: Unremarkable.Calvarium and skull base: Intact.Paranasal sinuses and mastoid air cells: Visible chambers are clear.Orbital contents: Included portions unremarkable. CTA BRAIN:Internal carotid arteries: Carotid siphon atheromatous plaques with moderate to severe multifocal stenosis.Middle cerebral arteries: Patent to distal branches.Anterior cerebral arteries: Patent. Intact A-comm.Basilar system: Patent vertebrobasilar system.Posterior cerebral arteries: Hypoplastic right P1 segment and mild stenosis of right P2 segment but sales representative advertising appear patent distally.Venous opacification: Major dural sinuses unremarkable for bolus timing.Additional findings: None. CTA NECK:Common carotid arteries: The common carotid arteries are normal in size. Cervical internal carotid arteries: Atheromatous plaques narrow the origin of the right ICA by approximately 50%. Atheromatous plaques at the origin of the left ICA without significant stenosis by NASCET criteria.Vertebral arteries: Moderate to severe stenosis at the origin ofthe right vertebral artery which is otherwise patent. Mild stenosis of the hypoplastic distal right V4 segment. Mild to moderate stenosis of the dominant left V4 segment due to calcified plaque.Arch anatomy: Conventional. Nonvascular findings:Osseous structures: Severe multilevel cervical spondylosis Intact calvarium and skull base.Cervical soft tissues: No adenopathy. Patent aerodigestive tract.Lungapices: No apical consolidation or pneumothorax. IMPRESSION:Intracranial, bilateral carotid siphon multifocal moderate to severe stenoses. Additional low-grade stenoses scattered throughout the anterior and posterior arterial circulations. Right ICA origin 50% stenosis. Patent left ICA origin. Moderate to severe focal stenosis of the right vertebral artery origin. Additional low-grade stenoses of thevertebral arteries described above. Signed: Lenny Sousa MDReport Verified Date/Time: 05/09/201920:00:21 [id number] 19:39:00 Test Item Value Reference Range Interpretation Comments PROTIME (BEAKER) (test code = 13.8 seconds 11.9-14.2 759) INR (BENICKIE) (test code = 370) 1.1 <=5.9 PARTIAL THROMBOPLASTIN TIME 31.6 seconds 22.5-36.0 (BEAKER) (test code = 760) Effective 03/17/2019: PT Reference Range ChangeNew: 11.9-14.2 Previous: 11.7- 14.7RECOMMENDED COUMADIN/WARFARIN INR THERAPY RANGESSTANDARD DOSE: 2.0-3.0 Includes: PROPHYLAXIS for venous thrombosis, systemic embolization; TREATMENT for venous thrombosis and/or pulmonary embolus.HIGH RISK: Target INR is2.5-3.5 for patients wiht mechanical heart valves.CBC W/PLT COUNT & AUTO [id number] 19:28:00 Test Item Value Reference Range Interpretation Comments WHITE BLOOD CELL COUNT (BEAKER) 8.1 K/ L 3.5-10.5 (test code = 775) RED BLOOD CELL COUNT (BEAKER) 3.92 M/ L 3.93-5.22 L (test code = 761) HEMOGLOBIN (BEAKER) (test code = 12.0 GM/DL 11.2-15.7 410) HEMATOCRIT (BEAKER) (test code = 35.3 % 34.1-44.9 411) MEAN CORPUSCULAR VOLUME (BEAKER) 90.1 fL 79.4-94.8 (test code = 753) MEAN CORPUSCULAR HEMOGLOBIN 30.6 pg 25.6-32.2 (BEAKER) (test code = 751) MEAN CORPUSCULAR HEMOGLOBIN CONC 34.0 GM/DL 32.2-35.5 (BEAKER) (test code = 752) RED CELL DISTRIBUTION WIDTH 13.8 % 11.7-14.4 (BEAKER) (test code = 412) PLATELET COUNT (BEAKER) (test 237 K/CU MM 150-450 code = 756) MEAN PLATELET VOLUME (BEAKER) 10.3 fL 9.4-12.3 (test code = 754) NUCLEATED RED BLOOD CELLS 0 /100 WBC 0-0 (BEAKER) (test code = 413) NEUTROPHILS RELATIVE PERCENT 65 % (BEAKER) (test code = 429) LYMPHOCYTES RELATIVE PERCENT 24 % (BEAKER) (test code = 430) MONOCYTES RELATIVE PERCENT 8 % (BEAKER) (test code = 431) EOSINOPHILS RELATIVE PERCENT 3 % (BEAKER) (test code = 432) BASOPHILS RELATIVE PERCENT 1 % (BEAKER) (test code = 437) NEUTROPHILS ABSOLUTE COUNT 5.25 K/ L 1.56-6.13 (BEAKER) (test code = 670) LYMPHOCYTES ABSOLUTE COUNT 1.97 K/ L 1.18-3.74 (BEAKER) (test code = 414) MONOCYTES ABSOLUTE COUNT (BEAKER) 0.62 K/ L 0.24-0.36 H (test code = 415) EOSINOPHILS ABSOLUTE COUNT 0.21 K/ L 0.04-0.36 (BEAKER) (test code = 416) BASOPHILS ABSOLUTE COUNT (BEAKER) 0.05 K/ L 0.01-0.08 (test code = 417) IMMATURE GRANULOCYTES-RELATIVE 0 % 0-1 PERCENT (BEAKER) (test code = 2801) CT, BRAIN/STROKE [id number] 19:10:00Reason for exam:->expressive aphasiaWhat is the patient's sedation requirement?->No SedationFINAL REPORT CT, BRAIN/STROKE PROTOCOL CLINICAL INDICATION: Speech changes (or aphasia), new or progressiveexpressive aphasia COMPARISON: None TECHNIQUE: Noncontrast axial CT imaging of the brain and skull. Coronal axial sagittal reformats obtained. DOSE REDUCTION: Dose modulation, iterative reconstruction, and/or weight-based adjustment of the mA/kV was utilized to reduce the radiation dose to as low as reasonably achievable. FINDINGS:Cerebral parenchyma: Moderate age-related parenchymal atrophy with scattered cerebral white matter leukoaraiosis. No acute intracranial hemorrhage or mass. No acute cortical infarct identified.Midline structures: Normally positioned.Cerebellum and brainstem: Normal for age.Ventricles: Normal volume for degree of parenchymal volume lossExtra-axial spaces: Unremarkable. 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 Additional findings: None.IMPRESSION: No acute intracranial abnormality. Recommended MRI brain if clinical concern for acute ischemia persist. Involutional and chronic microangiopathic ischemic changes. The findings were discussed with Dr. Arenas,05/09/2019 7:06 PM. Signed: Lenny Sousa MDReport Verified Date/Time: 05/09/2019 19:10:54 URINE AND TCGDA1052-55-50 01:41:00>182[facility] WBYFY5383-19-77 01:41:00Large *ABN*(12/07/17 7:41 PM)[facility] MPCZN3435-04-09 01:41:00Positive *ABN*(12/07/17 7:41 PM)[facility] DEJZU4115-92-29 01:41:00 Negative *NA*(12/07/17 7:41 PM)[facility] TCONG7854-72-97 01:41:00 Negative (12/07/17 7:41 PM)[facility] PYXZQ7081-20-00 01:41:00 Test Item Value Reference Range Interpretation Comments UA pH (test code = UA pH) 5.0 1 5.0-8.0 [facility] ZRIGW0579-54-14 01:41:00Moderate *ABN*(12/07/17 7:41 PM)[facility] QYGCZ7649-01-50 01:41:00 Test Item Value Reference Range Interpretation Comments UA Spec Grav (test code = UA Spec 1.023 1 Grav) [facility] PDKOR8262-80-11 01:29:00Negative (12/07/17 7:29 PM) [facility] HermannBLOOD BANK HAARWHM5670-35-24 22:31:00Negative (12/07/17 4:31 PM) [facility]annCHEM GPVBM9984-97-82 22:31:62872Jgdnzprg HermannELECTROLYTES 2017-12-07 22:31:003.9[facility] AtrpxoxMIXATZOHNNZZ0708-03-15 22:31:68344Ampsnhnu YelboqkNDBMOICSHVYY5003-03-17 22:31:59254Hnpwybhu IltbouxYDGIUJFFQPIY3565-07-76 22:31:000.3[facility] EuvsdjoKLFQRHUUYFPU0116-69-96 22:31:0090[facility] COHUCNUNPVCN5846-94-21 22:31:009.9[facility] EgkmogmPRVLSSDDZUPB7869-34-17 22:31:008.0[facility] QcmbdpsGSGQRADFAFQK1287-81-07 22:31:0027[facility] ZBYJZMVCHKYF1919-56-88 22:31:0014[facility] JihmoaxDEYQEVVYYMKB5804-05-38 22:31:00 0.90[facility] FcttocdOINRSCMLZLQC3913-15-28 22:31:0058[facility] OYDTBKGQUYFN1736-64-11 22:31:0021[facility] YfbstndYMEIPHAXDKCB2888-22-54 22:31:00 3.8[facility] DgnanroYSXMFHHPXOJH2522-74-18 22:31:0028[facility]annELECTROLYTES 2017-12-07 22:31:59927Enhgkzbr YibnoinQWIEVJRDHYMD5515-12-73 22:31:00 Test Item Value Reference Range Interpretation Comments B/C Ratio (test code = B/C Ratio) 16 1 6-25 [facility] LtzogzpWLKGJGVLDLRU3806-96-71 22:31:009.9[facility]annELECTROLYTES 2017-12-07 22:31:004.2[facility] OfxpzhoCBETARIIIQSW0094-45-01 22:31:00 Test Item Value Reference Range Interpretation Comments A/G Ratio (test code = A/G Ratio) 0.9 1 0.7-1.6 [facility] AeiioqnUYEZIOBYKK9122-61-13 22:31:0010.7[facility]annHEMATOLOGY 2017-12-07 22:31:003.4[facility] XcjozgrWKGHJNACMV1255-91-38 22:31:000.7[facility] AkmmlivQUMGOPTNGI7848-12-57 22:31:002.0[facility] EslduhvYUWKRYEBKL8571-07-10 22:31:000.0[facility] TtpboafLGWXYXLSUG8744-39-72 22:31:000.2[facility] LGQBCRQCNU6127-02-63 22:31:003.6[facility] OfcegiiVZRHBCOMIS8252-23-11 22:31:000.6 [facility] MqadzvcSAZMNXTXCN7828-21-58 22:31:0030.2[facility]annHEMATOLOGY 2017-12-07 22:31:0055.1[facility] KlyfgrdFBUHCVEEWT4739-73-48 22:31:008.3[facility] FuqhghxBEZTXUZCVY3398-04-81 22:31:85471Zpdcbfnb RouskwuMGNOCARZSN9015-42-70 22:31:0013.8[facility] BbsueqjTNTZPGWCLS2760-28-28 22:31:006.5[facility] UIJQAOEZBZ5749-92-26 22:31:004.02[facility] EyoqqmrFHFCWMMXSC0876-48-79 22:31:00 35.6[facility] ScjtkohZLFYPIWSSY9339-95-64 22:31:0011.7[facility] CenterATOLOG[facility] 2017-12-07 22:31:0088.6[facility] CenterAfnvckcEIOPHMIMDE6997-41-56 22:31:00 Test Item Value Reference Range Interpretation Comments MCH (test code = MCH) 29.1 pg 27.0-31.0 [facility]OrtxtytSJMCKRHYII0824-45-14 22:31:0032.8[facility]San[facility] CenterATOLOGY 2017-12-07 22:31:00 Test Item Value Reference Range Interpretation Comments PTT (test code = PTT) 31.6 s 22.9-35.8 [facility] HospitalMfzvrevWWDQAWDXAU0947-45-56 22:31:00 Test Item Value Reference Range Interpretation Comments PT (test code = PT) 13.3 s 12.0-14.7 [facility] HospitalRwrgnzoABOTEZTTIR5005-21-51 22:31:00 Test Item Value Reference Range Interpretation Comments INR (test code = INR) 1.01 1 0.85-1.17 [facility] Lkbhtqy8518-21-22 14:38:00 Test Item Value Reference Range Interpretation Comments B-Type Natriuretic Peptide (test 50.8 pg/mL 0.0-100.0 N code = 213091) Sed Rate ESR ([place])2017-03-20 23:21:00 Test Item Value Reference Range Interpretation Comments ESR (test code = HESR) 36 mm/Hr 0-20 H Thyroid Stimulating Hormone (TSH)2017-03-20 23:11:00 Test Item Value Reference Range Interpretation Comments TSH (test code = TSH) 2.22 mIU/mL 0.270-4.200 N Lipid Kcaeyae4148-72-55 23:05:00 Test Item Value Reference Range Interpretation Comments Cholesterol (test 308 mg/dL 0-200 H code = CHOL) Triglycerides (test 155 mg/dL 9-200 N code = TRIG) HDL (test code = 79 mg/dL 50-60 H HDL) Chol/HDL (test code 3.9 Ratio 0.0-4.4 N = CHOLPHDL) LDL, Calculated 198 0-130 H (NOTE)RISK O F HEART (test code = LDLC) DISEASEPu blished by [place] Heart AssociationAnal yte Optim al Boderline Increased RiskC HOL <200 200-239 >240TRI G <150 150-199 >200HDL Male: >60 <40HDL Female: >60 <50 LDL < 100 130-15 9 >160 LDL NEAR OPTIMAL IS 100- 129 VLDL (test code = 31 mg/dL 5-40 N VLDL) LDL/HDL (test code = 3 LDLPHDL) Comprehensive Metabolic Twxpm7018-20-04 23:05:00 Test Item Value Reference Range Interpretation Comments Sodium (test code = 138 mmol/L 135-145 N NA) Potassium (test 4.5 mmol/L 3.5-5.1 N code = K) Chloride (test code 99 mmol/L 98-105 N = CL) Carbon Dioxide 28 mmol/L 22-29 N (test code = CO2) Glucose (test code 105 mg/dL 70-115 N = GLU) Blood Urea Nitrogen 23 mg/dL 8-23 N (test code = BUN) Creatinine (test 1.1 mg/dL 0.5-0.9 H code = CREAT) Calcium (test code 10.7 mg/dL 8.3-10.5 H = CA) Prot Total (test 7.7 g/dL 6.4-8.3 N code = TP) Albumin (test code 4.8 g/dL 3.5-5.2 N = ALB) A/G Ratio (test 1.7 Ratio code = AGRATIO) Globulin (test code 2.9 2.9-3.1 N = GLOB) Bili Total (test 0.3 mg/dL 0.1-0.9 N code = TBIL) Alk Phos (test code 141 U/L 35-104 H = APHOS) AST (test code = 38 U/L 1-32 H AST) ALT (test code = 52 U/L 1-33 H ALT) BUN/Creatinine 20.9 Ratio (test code = BCRATIO) Anion Gap (test 11 mmol/L 7-16 N code = AGAP) Estimated GFR (test 50 eGFR (es timated code = GFR) mL/min/1.73m2 Glomerular Mason tration Rate) is an est imated value,calculate d from the patient's s jeremias creatinine usin g the MDRD equation.I t is NOT the patient 's actual GFR. The eGFR provides a more clinicallyusefu l measure of kidn ey disease than se rum creatinine alone.This calculation анна es sex and race into account, if the informationis provided. If th e race is not provided , and the patient isAfcasian-Ammaria d can, multiply by 1.2 12. If sex is not prov ided, and thepatient is female, multipl y by 0.742. Results for patients <18 ye ars ofage have not been validated by th e MDRD study and shoul d be interpretedwith caution.eGFR Re sult Interpretation: eGFR > or = 60 is in t he Normal RangeeGF R < 60 may mean kidney diseaseeGFR < 1 5 may mean kidney failureRange s recommended by the National Kidney Foundation,http ://nkd ep.nih.gov CBC with Hbydebcfrasb0847-57-44 22:00:00 Test Item Value Reference Range Interpretation Comments WBC (test code = WBC) 5.9 K/cumm 4.4-10.5 N RBC (test code = RBC) 4.20 M/cumm 3.75-5.20 N Hemoglobin (test code = HGB) 11.8 gm/dL 12.2-14.8 L Hematocrit (test code = HCT) 37.7 % 36.5-44.4 N MCV (test code = MCV) 89.7 fL 80-100 N MCH (test code = MCH) 28.2 pg 27.0-32.5 N MCHC (test code = MCHC) 31.4 g/dL 32.0-37.5 L RDW (test code = RDW) 14.4 % 11.5-14.5 N Platelet Count (test code = 222 K/cumm 140-440 N PLTCT) MPV (test code = MPV) 10.2 fL Diff Method (test code = DIFFM) Auto Neutrophil (test code = NEUT) 63.6 % 36-70 N Lymphocyte (test code = LYMPH) 24.0 % 12-44 N Monocyte (test code = MONO) 8.7 % 0-11 N Eosinophil (test code = EOS) 2.8 % 0-7 N Basophil (test code = BASO) 0.8 % 0-2 N Neutro Abs (test code = ANEUT) 3.7 K/cumm 1.6-7.4 N Lymph Abs (test code = ALYMPH) 1.4 K/cumm 0.5-4.6 N [place] Abs (test code = AMONO) 0.5 K/cumm 0.0-1.2 N Eos Abs (test code = AEOS) 0.17 K/cumm 0.00-0.74 N Baso Abs (test code = ABASO) 0.1 K/cumm 0.00-0.21 N CARDIAC BFEOWND2690-59-49 02:16:000.8[facility]annCARDIAC PFKUZGR6290-49-81 02:16:001.0[facility]annCARDIAC OIECCJD0788-89-82 02:16:00<0.02[facility]annCARDIAC DUECTTH0500-61-70 02:16:74048Gxfaemkv [facility]annCARDIAC ENZYMES 2016-05-15 20:16:00<0.02[facility]annCARDIAC NAHPTOC8621-02-32 20:16:95259 [facility]AC QTGZGQF5912-42-37 20:16:001.0[facility]annCARDIAC CTDVNAP0053-76-11 20:16:001.5[facility]annCHEM NDDQU5521-37-99 20:16:002.9 [facility]annCHEM QVDYZ0645-39-62 20:16:0078[facility]annCHEM PANEL 2016-05-15 20:16:000.80[facility]annCHEM SDKUT0312-34-71 20:16:09199Urcyvcoj [facility]annCHEM GBOJJ7671-10-21 20:16:0014[facility]annCHEM VNNEL5059-62-54 20:16:55289Oanslhyt [facility]annCHEM NDWNG0577-68-13 20:16:0011.8[facility]annCHEM ICBQF5206-22-20 20:16:90590Cquvyxsj [facility]annCHEM DCLSV8324-82-01 20:16:003.8 [facility]CHE[facility] IZLBS5339-07-94 20:16:009.4[facility]annCHEM PANEL 2016-05-15 20:16:0028[facility]annCHEM PJUFW7305-85-40 20:16:56450Aaggxkih [facility]annCHEM VYDDF9810-66-63 20:16:0013[facility]annCHEM YIBGT8969-14-67 20:16:000.2[facility]annCHEM WFWYA6222-04-65 20:16:003.6[facility]annCHEM NYXYB2624-63-03 20:16:001.0[facility]annCHEM FOZUN1127-28-27 20:16:0027 [facility]annCHE[facility] BXHFT3629-19-32 20:16:003.5[facility]annCHEM PANEL 2016-05-15 20:16:00<0.1[facility]annCHEM KAHCV5119-25-82 20:16:007.1 [facility]annCHEM PHNBG1740-67-06 20:16:001.8[facility] JiatvofJIBYZE9850-30-34 20:16:002.14[facility] GuynyltKSXPQH8565-06-50 20:16:0023[facility] HermannLIPIDS 2016-05-15 20:16:03181Mbqmcugu PooctncRHLWAB4650-18-07 20:16:0077[facility] WgixbvmCSBTTB4661-13-15 20:16:0088[facility] HbiebijBRTUHD2907-29-55 20:16:41389 [facility] FJCDA2135-70-61 15:35:00Performed (05/15/16 10:35 AM) [facility] KWIWA5805-90-70 15:35:00 Test Item Value Reference Range Interpretation Comments UA Spec Grav (test code = UA Spec 1.020 1 Grav) [facility] QIGUM5485-37-46 15:35:00Negative (05/15/16 10:35 AM) [facility] MJOKM5673-42-19 15:35:00Negative (05/15/16 10:35 AM) [facility] RNCSC3693-91-76 15:35:00 Test Item Value Reference Range Interpretation Comments UA pH (test code = UA pH) 6.0 1 5.0-8.0 [facility] WNFHL8720-10-55 15:35:00Negative *NA*(05/15/16 10:35 AM)[facility] AOEWB7266-02-59 15:35:00Negative *NA*(05/15/16 10:35 AM)[facility] CXHFU6746-19-94 15:35:000.2[facility] BMFTM5399-76-96 15:35:00Small *ABN*(05/15/16 10:35 AM)[facility] NSTBZ8034-61-45 15:35:00Negative (05/15/16 10:35 AM)[facility] CXJRE2430-10-75 15:35:00Negative (05/15/16 10:35 AM)[facility] CKTST8551-82-11 15:35:00Yellow *NA*(05/15/16 10:35 AM)[facility] JPYFG8536-74-85 15:35:00Slight Cloudy (05/15/16 10:35 AM)[facility]annCARDIAC OVYRGYX7243-88-48 15:18:00<0.02[facility]annCARDIAC HHNKUOS2871-66-71 15:18:001.6[facility]annCARDIAC TCHVYTR4199-22-63 15:18:30509Pzussszj Harry CARDIAC OHYNUCU7535-95-09 15:18:001.0[facility] HermannCHEM FXPEF2245-05-28 15:18:0066[facility]annCHEM KZJYP8935-23-78 15:18:36085Zvstlpru HermannCHEM TYFLP8170-70-16 15:18:000.92[facility] HermannCHEM FRFDI0491-19-23 15:18:009.2 [facility]annCHEM QYXFI1130-04-77 15:18:22401Lbhxmjuw [facility]annCHEM PANEL 2016-05-15 15:18:003.7[facility] HermannCHEM UGNOH2083-93-51 15:18:0028[facility]annCHEM ZLHNY4069-53-56 15:18:007.5[facility] HermannCHEM UOCZB4048-40-25 15:18:003.6[facility] HermannCHEM QAIJI9448-00-47 15:18:0016[facility] HermannCHEM RLHOH0710-15-63 15:18:0031[facility]annCHEM DIFWB2052-31-37 15:18:60065 [facility]annCHE[facility] YATBM8166-58-00 15:18:000.2[facility] HermannCHEM PANEL 2016-05-15 15:18:009.7[facility] HermannCHEM EDTVM8040-51-03 15:18:0017[facility]annCHEM AGHHP6383-53-07 15:18:003.9[facility]annCHEM ATRFX1519-46-32 15:18:000.9[facility]annCHEM YGRQG4411-54-23 15:18:02836Ibblikgt HermannCHEM QERFX3090-17-40 15:18:0016[facility] SmmibcxMFZEGICAPN4084-25-92 15:18:003.87 [facility] ZlvxhniBBMUDUVOEU0787-74-77 15:18:006.8[facility]annHEMATOLOGY 2016-05-15 15:18:00 Test Item Value Reference Range Interpretation Comments MCH (test code = MCH) 28.5 pg 27.0-31.0 [facility] RalipluIXNMURIPWJ7780-49-55 15:18:0032.5[facility]annHEMATOLOGY 2016-05-15 15:18:0034.0[facility] ScfvravPOJMEWFFLR8582-03-30 15:18:0087.7[facility] FqebfamVXGCQJDLMD8849-91-86 15:18:0014.3[facility] XukldbyIJHIDKKQKT9176-87-79 15:18:83788Igtwlbkk NhkxuacFABGZJOTXR1215-63-91 15:18:009.6[facility] VPGPDANNFR9903-31-32 15:18:0011.0[facility] MrnbepiWDMSUUMVVS5281-77-72 15:18:00 0.6[facility] YwnlvwxCKFNQLNCRZ7771-42-00 15:18:001.5[facility]annHEMATOLOGY 2016-05-15 15:18:003.0[facility] TevxxrmWMTFRITRNY7746-66-26 15:18:000.7[facility] FlgssacECSGLUGTRZ4067-20-14 15:18:004.4[facility] TgxdjwpZENJPVLFLD6428-64-90 15:18:000.2[facility] JayhmylRNLMOPMJKD0556-48-03 15:18:008.8[facility] SMOIQZJRIA1735-83-51 15:18:0065.2[facility] JwlivwvTGDJDRVCKE4970-09-13 15:18:00 22.3[facility] HermannCHEM YBQVL9951-42-48 09:04:202.7[facility]annCHEM PANEL 2014-05-10 09:04:201.1[facility] HermannCHEM BCYTS0880-76-46 09:04:2069[facility]annCHEM CTTJG3856-63-82 09:04:201.9[facility]annCHEM AZGLX3007-09-77 09:04:209.1[facility] HermannTUMOR VZQGRXV1219-01-30 09:04:201.9[facility] CHEM CGEEJ1264-28-69 09:04:15816Stvjsfmq HermannCHEM AKSUU8292-10-56 09:04:003.7 [facility]annCHEM KVRJT9885-93-29 09:04:08935Dmfbwzle [facility]annCHEM PANEL 2014-05-10 09:04:0010[facility]annCHEM JFIZG8245-59-11 09:04:000.9[facility]annCHEM ZIUAQ9783-55-45 09:04:95517Vwlqahxa HermannCHEM WIDSV6474-17-46 09:04:0016.7[facility] HermannCHEM NTXPS8171-56-01 09:04:009.1[facility] HermannCHEM MUUAB7151-34-74 09:04:0017[facility] ZnigtbaKOPVEPJEEA7194-02-91 09:04:001.0 [facility] WgyatipLMJSTVDMIR3406-96-31 09:04:002.0[facility]annHEMATOLOGY 2014-05-10 09:04:005.0[facility] NhgkznnLVCQMPXGHT0054-43-85 09:04:0031.0[facility] MbzmiilAKONNPXRAB3027-19-70 09:04:000.2[facility] JlryhbhUGTCKQXCBE2225-12-26 09:04:002.0[facility] HtddbqsTYMJJKOVTU4039-18-45 09:04:0059.0[facility] CYQIZRNNNK0864-59-32 09:04:005.7[facility] ZpagyhvHOOYZQGSDJ9657-14-17 09:04:000.5 [facility] LanpnttKDYAHPGOLB8242-26-19 09:04:002.9[facility]annHEMATOLOGY 2014-05-10 09:04:00Normal (05/10/14 4:04 AM)[facility] KwlbprhXBIGTJMNVI5626-50-54 09:04:00Normal (05/10/14 4:04 AM)[facility] VlnfgowDJESEWVYMK3347-70-02 09:04:000.0 [facility] AlnrnbzUSHIERSGDX7737-55-58 09:04:94909Euxbayzr HermannHEMATOLOGY 2014-05-10 09:04:008.6[facility] HyxixilVNYRIGZDOK4494-59-05 09:04:0014.2[facility] LlvmeapNGSKABNQIQ6311-93-20 09:04:0089.8[facility] OjduovlAQTNIJCWWF2329-99-79 09:04:009.3[facility] JvziiiiOQZUVEWAYC0910-07-40 09:04:0012.0[facility] CZXEQSLGTI7452-30-56 09:04:004.08[facility] XkggttiMYDWSDLYAH1661-67-55 09:04:00 36.7[facility] HofqufgXVUFEUJRVF4694-95-98 09:04:0032.7[facility] HermannHEMATOLOGY 2014-05-10 09:04:00 Test Item Value Reference Range Interpretation Comments MCH (test code = MCH) 29.3 pg 27.0-31.0 [facility]annCHEM DAZAL1302-24-16 10:53:001.9[facility] HermannCHEM PANEL 2014-05-09 10:53:002.2[facility] SwsfxkpEJZWBVCPPISC3531-66-38 10:53:48445Grtkbmpr XgpwckeUSWVLVMTEWCD5449-99-57 10:53:004.4[facility] QrbrsmmCMTFPGTOWFIE8861-03-01 10:53:29320Afflnbiy SyeqhokDNPQPLQSGEAN3367-44-66 10:53:009.2[facility] IHRWTTUHUJPL2015-76-91 10:53:000.5[facility] QstjlmeWGNYFRXEMSBX0453-65-42 10:53:12275Mlqiqlen SnzvjxlSPUJQJBFPQVR0254-05-44 10:53:0023[facility] GIKLVDJGOBTF6106-82-06 10:53:008[facility] QbivwmhIPJPSAXXVYSI5474-62-25 10:53:00 156[facility] QtzmeviVJQPQVLRPXQD0048-23-81 10:53:0015.4[facility]annHEMATOLOGY 2014-05-09 10:53:000.2[facility] FpyjghiPGKCMUJEZK9493-19-08 10:53:001.5[facility] KsidgovNDPRGSPXJK0566-08-33 10:53:001.8[facility] SdmntelXYKLKTKPOP9937-52-46 10:53:0016.0[facility] WwreznnEYWBSHIPFD7384-28-52 10:53:0019.6[facility] UDUJURQYLC5985-68-47 10:53:0062.2[facility] NzlvfeiEALHOXCNBB0452-42-75 10:53:00 5.8[facility] VhznekvHSBSUPAWSS8633-36-83 10:53:000.5[facility]annHEMATOLOGY 2014-05-09 10:53:001.7[facility] ZmrobnpUVPPAOJFHJ6221-45-99 10:53:009.2[facility] PizcimxCAICHWXHPB6222-74-26 10:53:53008Dqwzcfga CdbmdpdDCIVCXAQNF4533-35-86 10:53:0014.4[facility] ClydjwnHYOQLYMHGI5202-74-09 10:53:0033.5[facility] DXZCRJLQJR2172-01-19 10:53:0036.1[facility] QucmnozANNZYKGUGV4160-80-23 10:53:00 12.1[facility] NwzypbrEBKIBBHHKM4768-60-93 10:53:004.07[facility] HermannHEMATOLOGY 2014-05-09 10:53:00 Test Item Value Reference Range Interpretation Comments MCH (test code = MCH) 29.7 pg 27.0-31.0 [facility] ApqorweWKAURVTWVM2355-05-27 10:53:0088.6[facility]annHEMATOLOGY 2014-05-09 10:53:009.4[facility] HermannCHEM ZIORB4636-39-96 10:37:081.5[facility] HermannMOLECULAR DXXZMMIGZM4692-71-52 15:20:00Negative 9(05/08/14 10:20 AM) [facility]annCHEM VFQFE6357-14-01 14:42:332.9[facility] HermannCHEM PANEL 2014-05-08 06:47:0061[facility] HermannCHEM JFPFG1831-58-27 06:47:37657Fswoziyg HermannCHEM OOUJU9745-61-63 06:47:001.0[facility] HermannCHEM ESROI3140-14-69 06:47:0014[facility] HermannCHEM KKRVX2702-21-24 06:47:0028[facility] HermannCHEM TQENX1611-36-61 06:47:22210Zlcumfbt HermannCHEM DCUCR8587-48-97 06:47:07414 [facility]annCHEM DAONX0377-60-68 06:47:003.8[facility] HermannCHEM PANEL 2014-05-08 06:47:0012.8[facility] HermannCHEM NADNW4681-39-19 06:47:001.9[facility] HermannCHEM ERSFC4974-86-11 06:47:003.0[facility] McxogjzLYUBKUTAFV2637-20-29 06:47:0033.4[facility] KuxkethRHCOSEJLII2480-26-60 06:47:77537Fqthuaet Kamas XMGRBNZKBM2009-18-37 06:47:0014.1[facility] JslvklhAMSXAMLXME9311-22-64 06:47:00 9.5[facility] KztqwbnNAHHSBRZZW5927-90-09 06:47:00 Test Item Value Reference Range Interpretation Comments MCH (test code = MCH) 29.9 pg 27.0-31.0 [facility] JxwpsbxTVDFHRYTAS5391-86-15 06:47:0012.5[facility] HermannHEMATOLOGY 2014-05-08 06:47:004.19[facility] VmgwotaOLSTUURJLQ4048-52-73 06:47:0089.3[facility] LojnaahMEENJXWXXJ3255-86-85 06:47:0037.4[facility] JjbcsdwBTDSWXGAKY2116-18-19 06:47:006.8[facility] UjyyusmORRBXPBCQT6183-30-21 06:47:00Slight (05/08/14 1:47 AM) [facility] EtmhhbkMUWDDLLVZL2239-63-30 06:47:0017.0[facility] HermannHEMATOLOGY 2014-05-08 06:47:00Normal (05/08/14 1:47 AM)[facility] JvqonooYURIFPFKPV0004-16-04 06:47:0022.0[facility] MwwiogmITIDFBOBHS2416-95-97 06:47:000.0[facility] JYHGPAFYBK2264-99-20 06:47:00Slight *ABN*(05/08/14 1:47 AM)[facility] UXRAODLDKE2050-50-25 06:47:00Slight *ABN*(05/08/14 1:47 AM)[facility] BFEZUZZUJI4532-99-05 06:47:00Slight (05/08/14 1:47 AM)[facility]annHEMAT[facility] 2014-05-08 06:47:001.2[facility] IdksdecSAUAAWXIYA9676-54-00 06:47:0048.0[facility] DglvedaYOQYUJPPCN8783-19-87 06:47:0013.0[facility] NbgvtgoFRCDITFHBT4069-39-09 06:47:001.5[facility] XhoflmcWIMZRIDSRC2377-73-30 06:47:004.1[facility]annBL[facility]OD BANK THQUPIO8278-16-19 02:00:00Negative (05/07/14 9:00 PM)[facility]annCHEM XNNKV6203-06-22 01:13:001.0[facility]annCHEM ZEBMH2127-53-60 01:13:003.9 [facility] ODCVB6627-90-91 01:13:0013[facility]annCHEM PANEL 2014-05-08 01:13:000.7[facility]annCHEM XZOXR0663-66-91 01:13:07136Vidktvjo HermannCHEM EXVMC1411-43-80 01:13:0025[facility]annCHEM RDURB0075-57-91 01:13:007.7[facility]annCHE[facility] QMHAS2393-07-52 01:13:0091[facility]annCHE[facility] DLVMT2403-57-40 01:13:003.8[facility] TopkfxiOLPJAHQZRZ6855-18-56 01:13:000.2 [facility] BhlgpmgUSFNMRCROB8137-24-72 01:13:000.2[facility]annHEMATOLOGY 2014-05-08 01:13:00 Test Item Value Reference Range Interpretation Comments PT (test code = PT) 13.9 s 12.0-14.7 [facility] DlyiiwlLGYQBMECFJ9236-48-38 01:13:001.08[facility] 2014-05-08 01:13:00 Test Item Value Reference Range Interpretation Comments PTT (test code = PTT) 33.6 s 22.9-35.8 [facility] XgsamwgDAPDBBSHPF7196-84-41 02:55:00Few /LPF (03/09/2012 21:55:00) [facility] LgliabxQZBOXLRAVG1953-24-42 02:55:00Few /HPF (03/09/2012 21:55:00) [facility] SqulclmDQETFYCEJW6724-97-29 02:55:003-5 (03/09/2012 21:55:00)[facility]kqtnfaTYUVTQJJTZ6358-58-36 02:55:00Negative *NA*(03/09/2012 21:55:00)[facility] DgpkjsaUEOKILGOHI4801-04-30 02:55:00Negative *NA*(03/09/2012 21:55:00)[facility] XlgbomxLDKVKIZZNM7525-65-67 02:55:00Few /HPF *ABN*(03/09/2012 21:55:00)[facility]JabkgqhJYNXAZXAYW6349-21-83 02:55:00Small *ABN*(03/09/2012 21:55:00)[facility]UcyzsupOLINKTTLOH5075-30-65 02:55:00Negative (03/09/2012 21:55:00)[facility] IhzjxofDUGUIETGYB1531-43-89 02:55:000.2[facility] GucalgaRRVJJAKMDF9990-60-65 02:55:003-5 /HPF *ABN*(03/09/2012 21:55:00)[facility] IthvmxyYNAUFEEVIE4750-94-42 02:55:00Performed (03/09/2012 21:55:00)[facility] CjlmpiwOJMUOKOJVH3127-06-17 02:55:0011-20 /HPF *ABN*(03/09/2012 21:55:00)[facility]annURINALYSIS 2012-03-10 02:55:00Negative (03/09/2012 21:55:00)[facility]annURINALYSIS 2012-03-10 02:55:00Occasional /LPF (03/09/2012 21:55:00)[facility] CJHQGTDWYS3294-12-27 02:55:003-5 /LPF *ABN*(03/09/2012 21:55:00)[facility] SOUZKSTXAF2904-28-20 02:55:00Yellow *NA*(03/09/2012 21:55:00)[facility] FULNCVKHHN6830-95-32 02:55:00 Test Item Value Reference Range Interpretation Comments UA pH (test code = UA pH) 5.5 1 5.0-8.0 N [facility] WsztuveUHZSLVTVJT7192-39-68 02:55:00Negative (03/09/2012 21:55:00) [facility] DdmvllnBNJXZKEPIR7070-77-26 02:55:00>=1.030 *ABN*(03/09/2012 21:55:00)[facility] PpyqmzrOBSVSLBQPS6525-98-89 02:55:00Clear (03/09/2012 21:55:00)[facility] JycfxyjTGUTZZUUSA3336-80-65 02:55:99050 mg/dL *ABN*(03/09/2012 21:55:00)[facility] YvksrxuZIRVRJKYA0032-45-51 02:25:75795Ilcgjlfu [facility] HVONSXTQY6863-56-22 02:25:004.0[facility] HxkzuadFNRSSOVXN3067-91-84 02:25:0018 [facility] CmnzxeqQLQZBPOVI6274-59-43 02:25:0015.8[facility] HermannCHEMISTRY 2012-03-10 02:25:001.0[facility] EsfihsaWESYSLOIZ3305-31-63 02:25:61321Trifwybi NlzlxowXWKMIEQHP6279-32-64 02:25:0098[facility] GfpnzqpBDBGBFNIY5316-95-69 02:25:63910Djuuglgo VbwsigwCHBMNQVNL9866-80-92 02:25:0022[facility] NWPDZMNEL0963-05-16 02:25:004.0[facility] EkbepfkIYCWOTHIZ0371-66-43 02:25:008.0 [facility] VqjuhkbVEZZROQWB1578-36-51 02:25:009.5[facility]annCHEMISTRY 2012-03-10 02:25:000.5[facility] DdneremYSFRJSHEO0738-62-34 02:25:60468Mgfxmfuf HiandvzRUEKVWLOZ7595-51-64 02:25:92374Lwkghucy LzuhafmQOWTWMAVA8877-79-44 02:25:001.1[facility] YqfjvrbJZBFKNYYO4445-72-07 02:25:003.8[facility] IIQOAVVVM0077-52-02 02:25:0020[facility] EiocmdyFEGAVQQNC5290-28-12 02:25:0034 [facility] CgqctzwYSPJYHGQEK0594-52-36 02:25:004.12[facility]annHEMATOLOGY 2012-03-10 02:25:0010.3[facility] QeibnqoEWUSUNTEMJ7308-39-62 02:25:0012.7[facility] NatewefLZZVCPISXF5203-07-11 02:25:0034.2[facility] TiakdmkIZUYQTLSAV8394-20-47 02:25:0014.4[facility] LuwdbooDZNQUPNLYO6978-85-55 02:25:37212Dchxmfpv [facility] UABAHHOIEF1077-15-67 02:25:0090.4[facility] HxujyfuRLZKPXQOIO9591-12-06 02:25:00 Test Item Value Reference Range Interpretation Comments MCH (test code = MCH) 30.9 pg 27.0-31.0 N [facility] EjzghgjGWOTMIZFFY4179-76-69 02:25:0037.3[facility]annHEMATOLOGY 2012-03-10 02:25:008.8[facility] RpajjvlURARQBQYHJ2175-51-10 02:25:005.4[facility] StvqtnyNBPJSJJZJY1364-65-75 02:25:000.5[facility] GgvidlxDPUITMFOST0356-16-08 02:25:0089.2[facility] UulzuqdALJZQGOZOI4895-50-95 02:25:004.9[facility] QLLQRJYOBJ8123-83-98 02:25:000.0[facility] BxemxexXPCPRXFGZI8809-93-22 02:25:000.6 [facility] GygwymiTDMYPDTRGP8763-22-40 02:25:000.0[facility]annHEMATOLOGY 2012-03-10 02:25:000.1[facility] GqvvbrmRTVFNVDHCR6697-02-27 02:25:009.2[facility] AuwvtptSJSTIIKEEF2087-36-48 02:25:000.5[facility] FtadvneDWUCUNVFHU6377-60-28 14:41:00Large *ABN*(02/24/2012 09:41:00)[facility] MkuxezmXZYRSQXNXC7321-57-99 14:41:00Small *ABN*(02/24/2012 09:41:00)[facility] WokqiyhNDZCASLQCP7264-14-18 14:41:00Negative *NA*(02/24/2012 09:41:00)[facility] CoznkzuYCURHQNIUH2248-69-99 14:41:00Negative *NA*(02/24/2012 09:41:00)[facility] UhklahfQEXXWHRJJB8261-93-90 14:41:00Trace *ABN*(02/24/2012 09:41:00)[facility] FsexfcwQWOHLHEEXJ2333-60-23 14:41:00 Test Item Value Reference Range Interpretation Comments UA Spec Grav (test code = UA Spec 1.015 1 N Grav) [facility] CrrudgqCAOKPTPGDV4585-97-54 14:41:00 Test Item Value Reference Range Interpretation Comments UA pH (test code = UA pH) 6.0 1 5.0-8.0 N [facility] YabwjdgDOMREQEMHY3907-25-16 14:41:00Negative (02/24/2012 09:41:00) [facility] QdppegtPACMDIVGPD3905-49-81 14:41:000.2[facility]annURINALYSIS 2012-02-24 14:41:00Negative (02/24/2012 09:41:00)[facility]IS 2012-02-24 14:41:00Slight Cloudy (02/24/2012 09:41:00)[facility]IS 2012-02-24 14:41:00Yellow *NA*(02/24/2012 09:41:00)[facility]annUR[facility]ALYSIS 2012-02-24 14:41:00Occasional /LPF (02/24/2012 09:41:00)[facility] WXEYJLAMPT4118-11-38 14:41:00>100 /HPF *ABN*(02/24/2012 09:41:00)[facility] TszrxtsVULHSSISLV5600-46-09 14:41:003-5 /HPF *ABN*(02/24/2012 09:41:00)[facility] FxcgiedAJSTPSYCVA7569-94-81 14:41:00Few /HPF (02/24/2012 09:41:00)[facility] NzgytcdBAQMZPHGVI9046-71-86 14:41:00Few /LPF (02/24/2012 09:41:00)[facility]annBEDSIDE GLUCOSE YRBTVZM4074-39-89 21:40:74335Ctrshmdq HermannBEDSIDE GLUCOSE DCTTNUA3413-33-39 18:11:05595Blcdgvqx RdvyuqrIRHVMAKJT7792-17-26 09:29:00<0.02[facility] LbcsytdFCRBVTMXK4122-54-01 09:29:58328Wuafidal Kamas CVDYZSPWX0279-69-82 09:29:00<0.010[facility] MymlezfBMRMDYVGC4029-58-55 09:29:001.8[facility] ZiuhbfmWSLMGCTCY9201-49-20 09:29:002.8[facility] CPEJLNXXP3845-73-09 09:29:0015.9[facility] KwhnjdkYMIVSYNNQ0318-73-51 09:29:009.7 [facility] NpljeqfSHJLWKMVP3374-89-49 09:29:0098[facility]annCHEMISTRY 2011-12-06 09:29:0024[facility] OmocjajIERCCIUBS5522-17-44 09:29:004.9[facility] BbqowvsOJRGNNGFS7769-57-66 09:29:001.2[facility] CrszmmfEGGRMQZMF2560-34-99 09:29:08619Wakblqwq ZnnyksgFIKDZVRSW6856-12-38 09:29:27119Lwjomumu [facility] CRXKTOWVX8208-37-16 09:29:0029[facility] BafuvoiTBQJRUQKT3443-17-18 09:29:000.9 [facility] AzakcttYHSJBWAAO2598-46-18 09:29:001.5[facility] HermannHEMATOLOGY 2011-12-06 09:29:008.4[facility] ItdqztrFBEJBFZOUX6878-25-58 09:29:0015.3[facility] UhhwocaORHURQLNUS7317-76-45 09:29:98315Kcvhspwq PladtgjXOASYULXIH6583-76-52 09:29:00 Test Item Value Reference Range Interpretation Comments MCH (test code = MCH) 30.2 pg 27.0-31.0 N [facility] TzqwboeUZHVIEJGZC3952-74-94 09:29:0033.8[facility] HermannHEMATOLOGY 2011-12-06 09:29:003.90[facility] NybiyszTSRKXPHULX9274-02-41 09:29:0011.8[facility] GydwoekYBPNCPMTQV4201-38-44 09:29:0034.8[facility] AlqxodqWFZUSVPAXM1868-01-81 09:29:0089.4[facility] TjemeksFOSUZRMSNU8630-96-07 09:29:009.5[facility] MTUIXUOGBN4132-94-86 09:29:000.1[facility] AevcbksAPOFREBWFH2965-40-06 09:29:006.6 [facility] LltzldpCZCZXUHNFS6404-75-67 09:29:0015.3[facility] HermannHEMATOLOGY 2011-12-06 09:29:007.4[facility] PugpzvtVVGLTFLGVA9307-30-89 09:29:000.2[facility] XxfifybTTEAGOZNIK0435-50-79 09:29:001.5[facility] NyqncjsFZCHILYFCR3110-15-20 09:29:000.6[facility] WeawsegMKHLWCAUSU6463-44-89 09:29:000.0[facility] QTJCDKXSGY8591-51-32 09:29:000.0[facility] YyagfmuPMHAEUIPZX0131-45-99 09:29:00 77.8[facility] HermannBEDSIDE GLUCOSE LYSVJLG5340-01-29 03:42:11248Ewfyikwx LumjwngDGQFXPYSMA9277-08-53 17:44:009[facility] UcerrrmDQYCIDILR3561-65-99 11:33:00<0.010[facility] BbemxtmOWVDLVQMI1785-94-08 11:33:002.7[facility] MPZUDDNRJ4446-02-10 11:33:001.5[facility] FjvqkoqKDIEFIGUV6228-69-07 11:33:0021.0 [facility] ItbvpccGZVJHKKUS9228-05-03 11:33:0029[facility] HermannCHEMISTRY 2011-12-05 11:33:0062[facility] PahrdxjJCVWLGJTA0130-20-47 11:33:004.0[facility] VbnwcxfBNYJHDXYO2778-58-40 11:33:009.7[facility] YuvtsboTVSKBJGNE4926-98-76 11:33:000.4[facility] OxmutiaDTUSOUZMD4693-69-21 11:33:006.7[facility] QLQQYIBZU4029-30-89 11:33:0026[facility] EjbazlaERMZXYDFN1070-23-46 11:33:40233 [facility] DdsqekyKLNHWMKGZ7046-96-38 11:33:0019[facility] HermannCHEMISTRY 2011-12-05 11:33:88385Tjiiirik ChfjdsvOBCGSGLLK2920-23-55 11:33:004.0[facility] ClvciqbACYEZOWEP4554-76-36 11:33:24701Wghitqzd VcdowqgHIGAEJFME5239-08-60 11:33:0081[facility] GsvkcdsQQAGTMLEJ6336-67-56 11:33:0040[facility] IIZDHLSHZ8755-79-95 11:33:001.4[facility] CrkneddVIGPZCKXC8102-86-24 11:33:00 <0.02[facility] VacqahrLLIMCVBAC1378-35-97 11:33:003.5[facility] HermannCHEMISTRY 2011-12-05 11:33:001.8[facility] IthylygYZBJHUWYB4762-77-93 11:33:007.6[facility] VryrbthKUXVVEBPL0946-83-63 11:33:002.200[facility] JpfdsriTPFHOFXYS0498-65-60 11:33:21421Jsxjorwz FuuskwmAXRXBOWQF8890-61-92 11:33:007.8[facility] RTLRUAETC4015-89-49 11:33:001.5[facility] KegzofkEGIVGVPFG7928-06-15 11:33:0029 [facility] ClqbrhfZZJIZLHFA7028-04-90 11:33:0021.0[facility] HermannCHEMISTRY 2011-12-05 11:33:002.7[facility] RwchureKRRTTCUIUW1726-71-62 11:33:006.8[facility] EfigsqpAOXSXEGKSC7618-88-66 11:33:000.5[facility] HlhmxrcWRDHSCTUAB8058-77-15 11:33:002.8[facility] VdvvoezQSLCVQRVCE3590-84-48 11:33:007.8[facility] EJREWIYICX5206-23-64 11:33:000.3[facility] UreqanhLZAOUZUDOZ8345-67-26 11:33:00 65.1[facility] LebvqfdVNKXDATNRU1766-74-42 11:33:0026.3[facility] HermannHEMATOLOGY 2011-12-05 11:33:000.0[facility] TwzxrfsVFDUBHCTVZ9202-94-94 11:33:000.8[facility] OjuivcqQYIRCIRUAM9947-28-86 11:33:000.1[facility] KuzhoxuRXNFQCYNIS9452-38-45 11:33:77742Yyvrjjbi InfzgasXJKWOAGVJB2361-21-20 11:33:008.0[facility] LYMEFKOEHJ9203-16-97 11:33:0034.8[facility] EuxdsjfPXKIIAVINE9591-75-27 11:33:00 12.2[facility] CzechptDOYOLDYGLC5324-99-19 11:33:003.91[facility] HermannHEMATOLOGY 2011-12-05 11:33:0010.5[facility] JjixwdmCHEEZGEQPX5988-07-52 11:33:0035.0[facility] ZddhqdxWJNZEAIIEG9512-52-24 11:33:0089.1[facility] VkuxcmqHOAQYGFRVP0339-27-55 11:33:0014.7[facility] AobieliYYNCIJMKXV8159-68-20 11:33:00 Test Item Value Reference Range Interpretation Comments MCH (test code = MCH) 31.2 pg 27.0-31.0 H [facility] HaoctxwOZEWVZZTVN4729-26-42 21:56:00Occasional /LPF *NA*(12/04/2011 15:56:00)[facility] KyoxhkkYRPHWSBXUS1117-24-44 21:56:001[facility] VFPTUMNIIN4314-97-89 21:56:00Negative (12/04/2011 15:56:00)[facility] CHZEVJMQPV5758-28-12 21:56:00Negative (12/04/2011 15:56:00)[facility] RNDLIBDALU0310-42-56 21:56:00Occasional /HPF *NA*(12/04/2011 15:56:00)[facility] JxxzilvMIOZFOUKXB5676-37-17 21:56:001.015[facility] KgixnybGRCOEKTZZL5370-64-13 21:56:005.0[facility] PpfhblnJJNHWZBEMJ3803-18-61 21:56:00Negative *NA*(12/04/2011 15:56:00)[facility] XlpnhvcBNKIMDAZIA8216-60-42 21:56:00Negative mg/dL *NA*(12/04/2011 15:56:00)[facility] FgaabdjJMOUIPWWAA4572-94-42 21:56:00Negative (12/04/2011 15:56:00)[facility] IejfhfxOTFNUGKNVI3697-03-65 21:56:00Negative mg/dL (12/04/2011 15:56:00)[facility] HiyecedWVTTCWAGGG4191-94-35 21:56:00Negative mg/dL *NA*(12/04/2011 15:56:00)[facility] VmhmwlgXJGBEKWEEQ5270-30-28 21:56:00 Yellow *NA*(12/04/2011 15:56:00)[facility] EtahihkYUDEDFHAAO5844-67-53 21:56:00 Clear (12/04/2011 15:56:00)[facility] MeregvoKTGNTFDOY2202-30-06 19:51:21269 [facility] BfrmxrpJWLUWNAUE5222-70-85 19:51:00<0.02[facility] HermannCHEMISTRY 2011-12-04 19:51:0099[facility] RysdarvHGWYBECMT7260-11-65 19:51:00<2.1[facility] GbzubbiIJDSTCLHH4073-03-75 19:51:002.0[facility] JszqtnoJIBAQEDPI1168-80-76 19:51:0010.2[facility] CvhuydpBUCQVHOBP9425-67-60 19:51:48846Zywkyloq [facility] HCOEDBKZE9135-44-52 19:51:0044[facility] LtobtstAYWIXHEVJ4187-00-01 19:51:001.2 [facility] MdtarieRLGIZAFZG9921-46-49 19:51:81829Jrjwftix HermannCHEMISTRY 2011-12-04 19:51:005.0[facility] UllcvwcWBAVHYZPN2043-20-38 19:51:0096[facility] FzqwfuhWIWMIIWEW6930-65-57 19:51:0026[facility] BrtumuhNDPWEVKYT2224-67-80 19:51:001.0[facility] KytkoilIUEZZRSXS4174-84-76 19:51:002.7[facility] OVGKPSXYDJ2568-58-96 19:51:000.0[facility] PlegskzIPNACXOYGD2664-28-79 19:51:000.0 [facility] MajcbntRIXFEADGVZ0878-69-83 19:51:000.4[facility] HermannHEMATOLOGY 2011-12-04 19:51:001.0[facility] FrnyqovNANRZBKUVK0258-75-27 19:51:008.9[facility] PltyhiaTUDOIXJYIJ9519-68-38 19:51:000.1[facility] TytnicoUMVAUMONIN0477-38-72 19:51:000.2[facility] WlrgkqpTQVTCUJEGD7483-01-09 19:51:009.9[facility] BLRKMTFOCD5485-24-23 19:51:003.8[facility] HwlpegwCOOFZNSVMV9812-08-51 19:51:00 Normal (12/04/2011 13:51:00)[facility] ZsjnbfzJXWUAJZDFB0295-91-47 19:51:0086.0 [facility] EbeckgdXSKBEKYSDO5487-24-71 19:51:00Normal (12/04/2011 13:51:00) [facility] CmnydkcOPRPKNUUDZ4151-37-90 19:51:00 Test Item Value Reference Range Interpretation Comments PTT (test code = PTT) 26.0 s 22.9-35.8 N [facility] WyukjvlNHYKWDVFIH9550-08-48 19:51:00 Test Item Value Reference Range Interpretation Comments PT (test code = PT) 12.8 s 12.0-14.7 N [facility] DgqrvsfTJNPYCKKET3929-09-32 19:51:000.96[facility]annHEMATOLOGY 2011-12-04 19:51:008.2[facility] KlpjcwwDBOVNSRXIW3196-17-16 19:51:0090.2[facility] IcznjmeZQWNIBXLRQ3788-74-45 19:51:0039.4[facility] XoldzdwCBWTKWQBTI7353-08-82 19:51:0013.3[facility] QzhunalMWWDGGGXGJ5076-27-17 19:51:0010.3[facility] TJLKNLMOEY0999-73-45 19:51:0014.4[facility] EcldhqrGKGAPXXOXL9488-51-91 19:51:00 185[facility] AjspvhaYFQLAEEVNB5782-57-33 19:51:0033.7[facility] HermannHEMATOLOGY 2011-12-04 19:51:00 Test Item Value Reference Range Interpretation Comments MCH (test code = MCH) 30.4 pg 27.0-31.0 N [facility] IxysfitDLPMFIGIAQ6192-37-02 19:51:004.37[facility] HermannBEDSIDE GLUCOSE EMGFDOD3756-56-97 22:10:23064Moxmgcvt HermannBEDSIDE GLUCOSE QURWNVP5500-56-30 17:24:45825Nwovnhad HermannBEDSIDE GLUCOSE XTUOKDC5930-71-39 12:01:10467Bbmdlthx CkkojllXUKHNGSIR2010-54-86 11:15:0018.1[facility] NrukpnoVFQBIVYMI3894-38-57 11:15:0024[facility] RrmntpePUYEDJSOE1419-46-09 11:15:0010.2[facility] PFRKDVOBZ3315-46-43 11:15:06520Lqcfhtah SuaspynUUVQPTKVL9339-19-75 11:15:005.1 [facility] FflhfisXXRAWWVLM4475-39-72 11:15:89228Jrexpvjj HermannCHEMISTRY 2011-11-05 11:15:0099[facility] PygjlcsAMUKYIJDR2282-77-17 11:15:0032[facility] DbtpdzgEJUCZWSXS8683-35-27 11:15:001.0[facility] OhnnuslKANRZOYEDZ2291-80-67 11:15:0084[facility] VubsgktTYVIKFFSAT0887-49-15 11:15:48758Hhupwnvy [facility] JURAFXIWDB1752-95-17 11:15:009.1[facility] YzkugatXCGTHOIHMM4810-97-71 11:15:00 Test Item Value Reference Range Interpretation Comments MCH (test code = MCH) 29.1 pg 27.0-31.0 N [facility] KafbhfeDSDGSBMTGK5360-12-38 11:15:0014.2[facility] HermannHEMATOLOGY 2011-11-05 11:15:0032.8[facility] SepxljgCBSASYXJOI0861-93-98 11:15:0011.9[facility] XcinpbwTXKWKJYFPR7899-04-58 11:15:0036.4[facility] JyggflpQMOGVCNPEX7118-65-15 11:15:0088.9[facility] AomxtltDRMBGBLJXF9433-31-56 11:15:004.10[facility] WOHXGRWOCF8148-24-41 11:15:0015.1[facility] PcttrlaSAVPNATJBH9691-66-06 11:15:00 Slight *ABN*(11/05/2011 05:15:00)[facility] VpoipxfYIHYVEJVXG8898-43-72 11:15:00 Slight *ABN*(11/05/2011 05:15:00)[facility] TvvkdgoQVHIQPKRRM3595-24-60 11:15:00 Slight *ABN*(11/05/2011 05:15:00)[facility] UxzwsylVLTOUKLYBO3862-41-66 11:15:00 0.0[facility] JoxpattIYGKIFTMIW5305-15-48 11:15:00Slight (11/05/2011 05:15:00) [facility] SaukctwKJZUQCQPHK0237-15-81 11:15:000.0[facility] HermannHEMATOLOGY 2011-11-05 11:15:0012.8[facility] JadieytFVGZYNLMZY5826-33-92 11:15:000.0[facility] FcqtpfaTVDRJYLSME6423-39-84 11:15:000.5[facility] DnhmrrhFMIYRVVOMK3825-95-41 11:15:000.0[facility] WvyrvcmMDVXMHCXXZ9097-43-08 11:15:001.7[facility] JCXGBMRHYH3591-93-46 11:15:0011.5[facility] KjfnmvlMZODQVPNSI0641-31-86 11:15:00 3.6[facility] KelollvANCPMBQVVZ0406-62-98 11:15:0084.9[facility] HermannIMMUNOLOGY 2011-11-05 11:15:00Negative *NA*(11/05/2011 05:15:00)[facility]annIMMUNOLOGY 2011-11-05 11:15:00Negative (11/05/2011 05:15:00)[facility]annIMMUNOLOGY 2011-11-05 11:15:00<10[facility] IqdhfckOLGZKRDYZK3278-73-93 11:15:00Non Reactive (11/05/2011 05:15:00)[facility] XcnfcrvLJZRDMGCOO9207-09-13 13:50:00 <=1.0[facility] RqhgvptSKBCNQSWDI8127-53-76 13:50:00Performed *NA*(11/04/2011 07:50:00)[facility] XlekumoBXLGHNOMDI1646-65-38 13:50:00Few /LPF *NA*(11/04/2011 07:50:00)[facility] YvavbvnHXOZQUGYEK7003-65-63 13:50:002[facility] TABMMQWNJB9053-44-69 13:50:008[facility] RdqhhpkDQYBKQJLYG0103-68-16 13:50:00Few /LPF *NA*(11/04/2011 07:50:00)[facility] NymjmeaIPOCLKVRXH3935-70-78 13:50:001 [facility] JcfsmwaXLGCJJDAJH6151-99-83 13:50:00Negative (11/04/2011 07:50:00) [facility] EzvhbgyVOHHAEJGWF1922-68-57 13:50:00Negative (11/04/2011 07:50:00) [facility] VenhvflZUCIYCZZRZ0807-46-70 13:50:00Yellow *NA*(11/04/2011 07:50:00) [facility] VfrwfhrSZTADBYRVB6640-35-51 13:50:00Clear (11/04/2011 07:50:00)[facility] FfeayvbTOKENCWWPO2294-65-89 13:50:001.016[facility] ZapxpkmYRXHSVQBDQ8678-96-59 13:50:00Negative mg/dL *NA*(11/04/2011 07:50:00)[facility]annURINALYSIS 2011-11-04 13:50:00Negative *NA*(11/04/2011 07:50:00)[facility]annURINALYSIS 2011-11-04 13:50:00Negative mg/dL *NA*(11/04/2011 07:50:00)[facility] KYPDPKSWSE0121-39-54 13:50:00Negative (11/04/2011 07:50:00)[facility] SGDPWKMUPI9957-71-43 13:50:0050 mg/dL *ABN*(11/04/2011 07:50:00)[facility] ZLNMFTDZUO6612-63-44 13:50:005.5[facility] PtdtxxuJCOISRYVA8878-25-62 12:00:00 0.943[facility] YkyuqkqNHDHDNQQJ9154-17-26 12:00:00<0.02[facility] QOERXXADL9423-28-67 12:00:000.7[facility] LekbrypNLCJMZNHE7657-87-52 12:00:73057 [facility] RjpyeluNJWTYJORH2723-19-60 12:00:24142Lmijbwam HermannCHEMISTRY 2011-11-04 12:00:55511Aquwnlcu FffwqzrNUOGPZCBW9124-85-49 12:00:0099[facility] InqyspeCMKPOTOBR5683-08-49 12:00:85968Mczyjbrm PyteobiKTGEGNBKH4864-90-32 12:00:002.81[facility] EqsllugCHDAAFXFW4256-49-52 12:00:0017.1[facility] FZVPMZAPM5053-58-22 12:00:14270Rddzztap UxriultDGEDNDQRJ3612-68-90 12:00:005.1 [facility] XkkzhdyYACONKTHK6768-84-84 12:00:0010.1[facility] HermannCHEMISTRY 2011-11-04 12:00:0025[facility] JfsmekpTEKBOELVL5169-79-12 12:00:60513Hsgmfbgk IzyiclbHHCNOTDJQ9301-39-65 12:00:82510Iqfqhfyz HxtpvzsWVDTHFIEB7552-16-78 12:00:0028[facility] FtjoajiTBMHQRINF8862-27-21 12:00:001.2[facility] DKSVWLGXV8947-51-56 12:00:000.5[facility] ZkgihrsGDLMZMGQFP2365-63-30 12:00:0093 [facility] PhdktbiYBNFHCSCFG7424-25-01 12:00:48894Ovdjzslb HermannHEMATOLOGY 2011-11-04 12:00:009.0[facility] FfetcirUOEXJAWESB1971-66-55 12:00:0036.5[facility] OwtgfuxUOIHEOFZKS1058-23-60 12:00:0089.8[facility] QoknhwnRSXWKZRXYO7230-40-42 12:00:00 Test Item Value Reference Range Interpretation Comments MCH (test code = MCH) 29.6 pg 27.0-31.0 N [facility] MyrqbhkYVVAUNLROG6504-99-61 12:00:0012.1[facility] HermannHEMATOLOGY 2011-11-04 12:00:004.07[facility] PotaeceEUPIDRQREM0283-47-73 12:00:0033.0[facility] OsepsywXCZQWOEHDA5090-77-34 12:00:0013.6[facility] PwkxmcaUZKNQHXFQL6427-12-79 12:00:0012.4[facility] HbwbpelPFZBVSMNVH2583-97-76 12:00:000.7[facility] VHULOTVXBH2502-90-64 12:00:000.0[facility] CyyjnsjPTOTOTRBFL6620-31-65 12:00:000.0 [facility] InftdblRQDJWITVSE7919-38-42 12:00:000.3[facility] HermannHEMATOLOGY 2011-11-04 12:00:001.6[facility] AoqmstxVADOUZLOQG1912-32-89 12:00:000.0[facility] CpoemcpNDSJCPHRXX2290-24-99 12:00:0010.1[facility] EdtbxjyBALKKSUKTO8919-94-49 12:00:005.7[facility] BzvclskWZLNEHSQEB3996-32-06 12:00:0012.5[facility] EOMUUSUQEK4003-79-34 12:00:0081.5[facility] EylozlkEUCHBSGST1515-06-53 17:02:006.9 [facility] LmymapnBTBJKDWSV0352-86-38 17:02:005.5[facility] HermannCHEMISTRY 2011-11-03 17:02:000.7[facility] YaeusepUOKQPRBYM2250-09-66 17:02:0019[facility] EsazxqdSAZRQLAWP7331-05-02 17:02:0017.0[facility] CxzzfzcKTXGLHGEF2754-31-58 17:02:003.8[facility] QnfurneSDGMIFJCW9715-52-96 17:02:009.3[facility] BREPIYFHQ5476-43-99 17:02:0050[facility] HvcicfoJUWTUSCAZ0595-33-32 17:02:78500 [facility] EbkxhkgUWVXSVHUN2625-94-11 17:02:0010.4[facility] HermannCHEMISTRY 2011-11-03 17:02:0098[facility] YawbdvdZUUBLJDET5958-39-99 17:02:004.0[facility] YmtfymxDQVGOPTCW4193-91-63 17:02:0025[facility] ZeumrcrWCCTMXIYE9696-99-20 17:02:77734Jcehnrgb TnbgfwqTJEUXIOKB8403-50-97 17:02:001.1[facility] WREADJISI0053-39-97 17:02:0021[facility] FnvhrmiKRZCFLXHG6298-68-95 17:02:000.2 [facility] NtynqgyHAAAWYKXU4227-59-46 17:02:0023[facility] HermannCHEMISTRY 2011-11-03 17:02:76536Vujmeltn OdigyfqCBENYEQNQV0690-52-18 17:02:007.5[facility] SibzpftKUMQZTRYEW9416-50-56 17:02:002.4[facility] KucyhlbCDMXDPOGRR7073-62-29 17:02:000.0[facility] RglrcwcTRKUJUMIWS5018-06-77 17:02:000.9[facility] HURJEEYZBN7245-67-62 17:02:000.1[facility] XdkjpmxBNEQZRPDVX7108-73-60 17:02:00 68.8[facility] OnbvxjcIBSVVUTDPW3730-88-12 17:02:008.3[facility] HermannHEMATOLOGY 2011-11-03 17:02:0021.7[facility] GqfgkzlWJTQQVWRFW6154-87-93 17:02:000.4[facility] JxbntcwKQIUXHREWT8074-15-47 17:02:000.8[facility] YkmplauBFMLNAPPBG2439-05-60 17:02:0090[facility] YivnfbnEEHSYDASAX9439-28-79 17:02:001.03[facility] DBQNKSFGAO4855-68-76 17:02:00 Test Item Value Reference Range Interpretation Comments PTT (test code = PTT) 34.9 s 22.9-35.8 N [facility] LntiunkZSVOLFDZMN5273-53-77 17:02:00 Test Item Value Reference Range Interpretation Comments PT (test code = PT) 13.5 s 12.0-14.7 N [facility] EkfsvlwHLJAELVHJN2142-80-00 17:02:19204Rnxgczkl HermannHEMATOLOGY 2011-11-03 17:02:0013.9[facility] [id number] 17:02:009.1[facility] AuquifbDMMRGFTGEU2191-05-75 17:02:0033.9[facility] [id number] 17:02:00 Test Item Value Reference Range Interpretation Comments MCH (test code = MCH) 30.0 pg 27.0-31.0 N [facility] [id number] 17:02:0088.6[facility] HermannHEMATOLOGY 2011-11-03 17:02:0013.6[facility] RxhtrwkOFCITYQZWW5990-86-69 17:02:0040.1[facility] XsbsuwsKPKSNBMVZX7798-44-74 17:02:004.53[facility] XuhjbvoLDYGQZTSSW3512-95-68 17:02:0010.9[facility] JaqebdyRJURYBABJV9312-64-70 17:02:59047.0[facility]
[2020-12-26 14:07] LABS: Absolute Lymphocytes (CBC) 1.5 K/uL (0.7-4.9); Basophils % 0.7 % (0-1.3); Lymphocytes % 18.4 % (15.3-44.8); MPV 9.5 fL (7.6-11.3); RBC Red Blood Cell Count 4.11 M/uL (3.86-4.86)
[2020-12-26 14:29] LABS: ALT/SGPT 23 U/L (12-78); AST/SGOT 13 U/L (15-37); Albumin 3.8 g/dL (3.4-5.0); Alkaline Phosphatase 103 U/L (45-117); BUN Blood Urea Nitrogen 26 mg/dL (7-18); Bicarbonate 26 mmol/L (21-32); Bilirubin Direct < 0.1 mg/dL (0-0.2); Bilirubin Total 0.3 mg/dL (0.2-1.0); Glucose Level 99 mg/dL (74-106); Lipase 197 U/L (73-393); Potassium 4.1 mmol/L (3.5-5.1); Protein, Total 7.5 g/dL (6.4-8.2); Sodium Level 141 mmol/L (136-145)
[2020-12-26] MEDS ORDERED: ONDANSETRON 4 MG/2 ML VIAL ONE (14:51)
[2020-12-26] MEDS ORDERED: MEPERIDINE HCL 25 MG/ML SYR ONE (14:52)
[2020-12-26] MEDS ORDERED: NA CHLORIDE 0.9% 500 ML ONE (14:52)
[2020-12-26 15:07] LABS: Urine Bacteria <20 /HPF (<20); Urine Mucus LIGHT /HPF (NONE SEEN); Urine RBC <5 /HPF (NONE SEEN)
[2020-12-26 15:36] LABS: Urine Blood NEGATIVE (NEG); Urine Glucose NEGATIVE (NEG); Urine Protein NEGATIVE (NEG); Urine Specific Gravity 1.025 (1.005-1.030)
--- NOTE | 2020-12-26 15:40 | RAD REPORT ---
EXAM DESCRIPTION: CT - Abdomen Pelvis W Contrast - 12/26/2020 3:13 pm CLINICAL HISTORY: Abd pain;Constipation COMPARISON: No comparisons TECHNIQUE: Biphasic, helical CT imaging of the abdomen and pelvis was performed following 100 ml non -ionic IV contrast. No oral contrast administered. All CT scans are performed using dose optimization technique as appropriate and may include automated exposure control or mA/KV adjustment according to patient size. FINDINGS: No suspicious findings in the lung bases. Cardiomegaly is present without pericardial effu vasu. Liver is normal size. Posterior midline left lobe 10 mm low-density mass is probably a cyst too small to fully characterize. No portal vein abnormality. No clearly malignant or suspicious mass of the ki dney. In the posterosuperior spleen a 3.5 centimeter rounded low-density mass is present. Attenuation value is approximately 55 Hounsfield units. Spleen is otherwise unremarkable. No pancreatic abnormality. Gallbladder and biliary tree show no suspicious findings. Gallstones can b e occult on CT imaging. Symmetric renal function is seen with no hydronephrosis or suspicious renal mass. No pyelonephritis o r acute parenchymal process. Multiple bilateral renal cysts are present largest on the left at 6.5 cm . No suspicious characteristics. Urinary bladder is mostly contracted which limits assessment. Uterus is absent. Ovaries are absent or atrophic. No adnexal mass. No adrenal abnormalities. No gastric dilatation. Small hiatal hernia is present. Cee of the distal esophagus are mildly promi nent. Cee of the antrum appear thickened. This may be a peristalsis artifact. Antritis cannot be ex cluded. No edema or stranding in the adjacent fat. No acute small bowel finding. No appendicitis find ings. No dilated colon or colon wall thickening. Mid transverse colon anastomotic site shows no suspi cious finding. No free air, free fluid or inflammatory stranding. No mass or bulky lymphadenopathy. Postsurgical changes are noted to the midline abdominal wall. Scar tissue is present. No edema in the fatty tissue s of the abdomen. Prominent disc and bony degenerative changes are present. No acute or destructive bone process. L4-sp inal stenosis and foraminal stenosis suspected. Patient has advanced facet degenerative change in the mid and lower lumbar spine. Arterial tree calcifications are present. IMPRESSION: No bowel obstruction, free air or surgically emergent finding. Cee of the gastric antrum are prominent. This is probably peristalsis artifact though antritis or g astritis are certainly possible. Low-density 3.5 centimeter mass in the spleen is unlikely to be of any long-term significance. Pio anne has no comparison studies. Scar tissue in the deep subcutaneous fat midline abdomen at the umbilicus. No hernia defect confirmed .
--- NOTE | 2020-12-26 15:46 | ER ---
Nurse's Notes [facility] Name: Beatrice Myles Age: 89 yrs Sex: Female : 1930 Arrival Date: 12/26/2020 Time: 13:22 Bed 7 Private MD: Diagnosis: Upper abdominal pain, unspecified;Gastritis, unspecified Presentation: 12/26 13:35 Chief complaint: Patient states: Abd pain for 3 weeks. No fever. States she has been ll1 using medications to help her have BM's the past two days. Coronavirus screen: Client denies travel out of the [place] in the last 14 days. At this time, the client does not indicate any symptoms associated with coronavirus-19. Ebola Screen: Patient denies travel to an Ebola-affected area in the 21 days before illness onset. Initial Sepsis Screen: Does the patient meet any 2 criteria? No. Patient's initial sepsis screen is negative. Does the patient have a suspected source of infection? Yes: Acute abdominal pain. Risk Assessment: Do you want to hurt yourself or someone else? Patient reports no desire to harm self or others. Onset of symptoms was December 09, 2020. 13:35 Method Of Arrival: Wheelchair ll1 13:35 Acuity: PAUL 3 ll1 Historical: - Allergies: 13:38 No Known Allergies; ll1 - PMHx: 13:38 colon cancer; Depression; Diabetes - NIDDM; Hypertension; anxiety/depression; aortic ll1 valve stenosis; - PSHx: 13:38 colon sx; ll1 - Immunization history:: Client reports receiving the 1st dose of the Covid vaccine, Flu vaccine is up to date. - Social history:: Smoking status: Patient denies any tobacco usage or history of. - Family history:: not pertinent. - Hospitalizations: : No recent hospitalization is reported. Screenin:18 Abuse screen: Denies threats or abuse. Denies injuries from another. Nutritional ss screening: No deficits noted. Tuberculosis screening: Never had TB. Fall Risk None identified. Assessment: 14:18 General: Appears in no apparent distress. comfortable, Behavior is calm, cooperative, ss Denies fever, feeling ill, fatigue, chills. Pain: Complains of pain in abdomen Pain currently is 8 out of 10 on a pain scale. Quality of pain is described as "I can't describe it" Pain began 3 weeks ago Is intermittent. Neuro: Level of Consciousness is awake, alert, obeys commands, Oriented to person, place, time, situation. Cardiovascular: Capillary refill < 3 seconds is brisk in bilateral fingers. Respiratory: Airway is patent Respiratory effort is even, unlabored, Respiratory pattern is regular, symmetrical. GI: Abdomen is non-distended, Bowel sounds present X 4 quads. Abd is soft and non tender X 4 quads. Patient currently denies diarrhea, nausea, vomiting. : No signs and/or symptoms were reported regarding the genitourinary system. Denies burning with urination, inability to void, urinary frequency. EENT: Oral mucosa is moist. Derm: Skin is intact, is healthy with good turgor, Skin is dry, Skin is pink, warm \\T\\ dry. normal. Musculoskeletal: Circulation, motion, and sensation intact. Range of motion: intact in all extremities, Swelling absent. 15:15 Reassessment: Patient appears in no apparent distress at this time. Patient and/or ss family updated on plan of care and expected duration. Pain level reassessed. Patient is alert, oriented x 3, equal unlabored respirations, skin warm/dry/pink. 16:00 Reassessment: Patient appears in no apparent distress at this time. Patient and/or ss family updated on plan of care and expected duration. Pain level reassessed. Patient states feeling better. Patient states symptoms have improved. Vital Signs: 13:35 BP 152 / 74; Pulse 81; Resp 18; Temp 98.8; Pulse Ox 100% ; Weight 113.4 kg; Height 5 ll1 ft. 5 in. (165.10 cm); Pain 10/10; 13:35 Body Mass Index 41.60 (113.40 kg, 165.10 cm) ll1 ED Course: 13:22 Patient arrived in ED. mr 13:30 Chris Del Toro MD is Attending Physician. rn 13:35 Arm band placed on Patient placed in an exam room, on a stretcher. ll1 13:37 Triage completed. ll1 14:00 Initial lab(s) drawn, by me, sent to lab. Inserted saline lock: 22 gauge in left kj1 antecubital area, using aseptic technique. Blood collected. 14:16 Mady Mejia, WILLOW is Primary Nurse. ss 14:18 Patient has correct armband on for positive identification. Bed in low position. ss 14:46 Radiology exam delayed due to IV insertion attempt and/or patient not having nj appropriate IV at this time. 14:57 Inserted saline lock: 22 gauge in right antecubital area, using aseptic technique. ss 15:13 CT Abd/Pelvis - IV Contrast Only In Process Unspecified. EDMS 16:13 No provider procedures requiring assistance completed. IV discontinued, intact, ss bleeding controlled, No redness/swelling at site. Pressure dressing applied. Administered Medications: 14:55 Drug: Zofran (Ondansetron) 4 mg Route: IVP; Site: right antecubital; ss 16:11 Follow up: Response: No adverse reaction ss 14:58 Drug: Demerol - Meperidine 12.5 mg Route: IVP; Site: right antecubital; ss 16:13 Follow up: Response: No adverse reaction; Pain is decreased ss 14:58 Drug: NS 0.9% 500 ml Route: IV; Rate: bolus; Site: right antecubital; ss 16:13 Follow up: IV Status: Completed infusion; IV Intake: 500ml ss Intake: 16:13 IV: 500ml; Total: 500ml. ss Outcome: 15:45 Discharge ordered by MD. rn 16:12 Patient left the ED. 16:13 Discharged to home via wheelchair, with friend. ss 16:13 Condition: good 16:13 Discharge instructions given to patient, Instructed on discharge instructions, follow up and referral plans. medication usage, Demonstrated understanding of instructions, follow-up care, medications, Prescriptions given X 1. Signatures: Dispatcher [employer] [facility] CookSamira Roman, MD MD rn Smirch, Shelby, RN RN Romi Espino RN RN Thai Andrade, Esther kj1 [place] Aragon RN RN ll1
--- NOTE | 2020-12-26 15:46 | EDPHYS ---
Physician Documentation [facility] Name: Beatrice Myles Age: 89 yrs Sex: Female : 1930 Arrival Date: 12/26/2020 Time: 13:22 Bed 7 Private MD: ED Physician Chris Del Toro HPI: 12/26 13:35 This 89 yrs old Black Female presents to ER via Unassigned with complaints of Abdominal rn Pain. 13:35 The patient presents with abdominal pain in the epigastric area, that is diffuse. rn Onset: The symptoms/episode began/occurred 3 week(s) ago. The symptoms do not radiate. Associated signs and symptoms: Pertinent positives: anorexia, constipation, Pertinent negatives: blood in stools, chest pain, fever, hematuria, shortness of breath, vomiting, vomiting blood. The symptoms are described as achy, crampy. Modifying factors: The symptoms are alleviated by nothing, the symptoms are aggravated by nothing. Severity of pain: At its worst the pain was mild in the emergency department the pain is unchanged. The patient has not experienced similar symptoms in the past. The patient has been recently seen by a physician:. Reports diffuse abd pain, for 3 weeks, referred to GI by her PCP, but hasn't seen them yet, no fever, + decreased appetite, no diarrhea, + constipation that was relieved by laxative. No blood in stool. . 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 - Social history:: Smoking status: Patient denies any tobacco usage or history of. - Family history:: not pertinent. - Hospitalizations: : No recent hospitalization is reported. ROS: 13:35 Constitutional: Negative for fever, chills, and weight loss, Eyes: Negative for injury, rn pain, redness, and discharge, Neck: Negative for injury, pain, and swelling, Cardiovascular: Negative for chest pain, palpitations, and edema, Respiratory: Negative for shortness of breath, cough, wheezing, and pleuritic chest pain, Abdomen/GI: Negative for nausea, vomiting, diarrhea Back: Negative for injury and pain, : Negative for injury, bleeding, discharge, and swelling, MS/Extremity: Negative for injury and deformity, Skin: Negative for injury, rash, and discoloration, Neuro: Negative for headache, weakness, numbness, tingling, and seizure. Exam: 13:35 Constitutional: This is a well developed, well nourished patient who is awake, alert, rn and in no acute distress. Head/Face: Normocephalic, atraumatic. Cardiovascular: Regular rate and rhythm. No pulse deficits. Respiratory: No increased work of breathing, no retractions or nasal flaring. Abdomen/GI: soft, non-tender Skin: Warm, dry MS/ Extremity: Pulses equal, no cyanosis. Neurovascular intact. Full, normal range of motion. Equal circumference. Neuro: Awake and alert, GCS 15 14:01 ECG was reviewed by the Attending Physician. rn Vital Signs: 13:35 BP 152 / 74; Pulse 81; Resp 18; Temp 98.8; Pulse Ox 100% ; Weight 113.4 kg; Height 5 ll1 ft. 5 in. (165.10 cm); Pain 10/10; 13:35 Body Mass Index 41.60 (113.40 kg, 165.10 cm) ll1 MDM: 13:30 Patient medically screened. rn 15:43 Differential diagnosis: gastritis, gastroesophageal reflux disease, pancreatitis, rn Peptic Ulcer Disease. Data reviewed: vital signs, nurses notes, lab test result(s), radiologic studies, CT scan, and as a result, I will discharge patient. Counseling: I had a detailed discussion with the patient and/or guardian regarding: the historical points, exam findings, and any diagnostic results supporting the discharge/admit diagnosis, lab results, radiology results, the need for outpatient follow up, to return to the emergency department if symptoms worsen or persist or if there are any questions or concerns that arise at home. Response to treatment: the patient's symptoms have mildly improved after treatment, and as a result, I will discharge patient. Special discussion: Based on the patient's Hx, exam, and Dx evaluation, there is no indication for emergent surgery or inpatient Tx. It is understood by the patient/guardian that if the Sx's persist or worsen they need to return immediately for re-evaluation. I discussed with the patient/guardian in detail that at this point there is no indication for admission to the hospital. It is understood, however, that if the symptoms persist or worsen the patient needs to return immediately for re-evaluation. Based on the history and exam findings, there is no indication for further emergent testing or inpatient evaluation. I discussed with the patient/guardian the need to see the health therapist for further evaluation of the symptoms. ED course: Pt most likely with gastritis given epigastric pain, length of symptoms for 3 weeks, but otherwise stable, will dc home with GI f/u as already scheduled and start on antacid medication.. 12/26 13:35 Order name: Basic Metabolic Panel; Complete Time: 14:33 rn 12/26 13:35 Order name: CBC with Diff; Complete Time: 14:24 rn 12/26 13:35 Order name: Hepatic Function; Complete Time: 14:33 rn 12/26 13:35 Order name: Lipase; Complete Time: 14:33 rn 12/26 13:35 Order name: Urine Microscopic Only; Complete Time: 15:40 rn 12/26 14:30 Order name: Urine Dipstick--Ancillary (enter results); Complete Time: 15:40 bd 12/26 13:35 Order name: IV Saline Lock; Complete Time: 14:16 rn 12/26 13:35 Order name: Labs collected and sent; Complete Time: 14:16 rn 12/26 13:35 Order name: Urine Dipstick-Ancillary (obtain specimen); Complete Time: 14:16 rn 12/26 13:35 Order name: CT Abd/Pelvis - IV Contrast Only; Complete Time: 15:40 rn 12/26 13:37 Order name: EKG; Complete Time: 13:38 rn 12/26 13:37 Order name: EKG - Nurse/Tech; Complete Time: 14:16 rn EC:01 Rate is 64 beats/min. Rhythm is regular. QRS [place] is Normal. CO interval is normal. QRS rn interval is normal. QT interval is normal. No Q waves. T waves are Normal. No ST changes noted. Clinical impression: NSR w/ Non-specific ST/T Changes. Interpreted by me. Reviewed by me. Administered Medications: 14:55 Drug: Zofran (Ondansetron) 4 mg Route: IVP; Site: right antecubital; ss 16:11 Follow up: Response: No adverse reaction ss 14:58 Drug: Demerol - Meperidine 12.5 mg Route: IVP; Site: right antecubital; 16:13 Follow up: Response: No adverse reaction; Pain is decreased ss 14:58 Drug: NS 0.9% 500 ml Route: IV; Rate: bolus; Site: right antecubital; ss 16:13 Follow up: IV Status: Completed infusion; IV Intake: 500ml Disposition: 12/26/20 15:45 Discharged to Home. Impression: Upper abdominal pain, unspecified, Gastritis, unspecified. - Condition is Stable. - Discharge Instructions: Abdominal Pain, Adult, Gastritis, Adult. - Prescriptions for Protonix 40 mg Oral Tablet - take 1 tablet by ORAL route once daily; 30 tablet. - Medication Reconciliation Form, Thank You Letter, Antibiotic Education, Prescription Opioid Use form. - Follow up: Private Physician; When: As needed; Reason: Recheck today's complaints, Re-evaluation by your physician. - Problem is an ongoing problem. - Symptoms have improved. Signatures: Dispatcher [employer] EDMS Chris Del Toro MD MD rn Smirch, Shelby, RN RN Romi Espino RN RN [place] Aragon RN RN ll1 Corrections: (The following items were deleted from the chart) 16:12 15:45 12/26/2020 15:45 Discharged to Home. Impression: Upper abdominal pain, hb unspecified; Gastritis, unspecified. Condition is Stable. Forms are Medication Reconciliation Form, Thank You Letter, Antibiotic Education, Prescription Opioid Use. Follow up: Private Physician; When: As needed; Reason: Recheck today's complaints, Re-evaluation by your physician. Problem is an ongoing problem. Symptoms have improved. rn
[2020-12-27 13:26] VITALS: BP 152/74; TEMP 98.8; O2SAT 100
--- NOTE | 2020-12-28 05:18 | EKG ---
Test Date: 2020-12-26 Test Time: 13:51:41 Senior Lead Java Developer: KELLEN MEASUREMENT RESULTS: Intervals: Rate: 64 MS: 184 QRSD: 88 QT: 408 QTc: 420 [place]: P: 41 MS: 184 QRS: -21 T: 32 INTERPRETIVE STATEMENTS: Normal sinus rhythm RSR' or QR pattern in V1 suggests right ventricular conduction delay Borderline ECG Compared to ECG 08/04/2017 12:00:45 RSR' in V1 or V2 now present First degree AV block no longer present Left-axis deviation no longer present Electronically Signed On 12-28-20 05:11:58 OIL REFINER by Cullen Khan
== END 2020-12-26 16:12 | disposition home or self-care (01) ==
LOC: ER 13:18
DX: K29.70 Gastritis, unspecified, without bleeding (principal); I10 Essential (primary) hypertension; Z85.038 Personal history of other malignant neoplasm of large intestine
CPT/HCPCS: 93005; 85025; 80048; 36415; 80076; 83690; 74177; Q9967; J2175; J7040; J2405; 81003; 81015; 96361; 96374; 96375; 99284

== ENCOUNTER 2021-04-25 20:13 | Inpatient (IN) | payer OTHER, SELFPAY ==
--- OUTSIDE RECORDS SUMMARY | 2021-04-25 20:17 | XMS REPORT | Continuity of Care Document ---
:1930 Author Organization [facility] t Address [address] [place] [address] Care Team Providers Name Role Phone BOUBACAR Primary Care Physician Unavailable JAZMÍNEFFE Attending Clinician Unavailable Pob, Lab Main Attending Clinician Unavailable Doctor Unassigned, Name Attending Clinician Unavailable Pili Waggoner Attending Clinician PRATIK Attending Clinician Unavailable Carlos CAMARA Attending Clinician ALBERTO ARENAS Attending Clinician Unavailable SHELBIE Attending Clinician Unavailable Delta CHUNG Admitting Clinician Unavailable SHELBIE Admitting Clinician Unavailable Payers Payer Name Policy Type Policy Number Effective Date Expiration Date Ekaterina TURCIOS PLUS [id number] 2020 MEDICARE HMO 00:00:00 Problems Condition Condition Condition Status Onset Resolution Last Treating Co mments Source Name Details Category Date Date Treatment Clinician Date 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 - cancer cancer 00:00: Medical 00 Center TIA TIA Disease Active [facility]transient (transient 05-09 [facility] - ischemic ischemic 00:00: Medica l attack) attack) 00 Center Chest pain Chest pain Disease Active [place] 2-14 [facility] 00[facility]: st 00 Headache Problem Active 2014-01-12 [facility] 23:02:23 l Headache [place] Active 01/12/2014 [facility] Temporal Problem Active 2014-01-12 [facility] Arteritis 23:02:23 l Temporal [place] Arteritis Active 4 [facility] Type 2 Problem Active 2014-01-12 Mem[facility] Diabetes 23:02:23 l Mellitus Type 2 [place] Diabetes Mellitus Active 4 [facility] Atheroscle Problem Active 2014-01-12 M [facility] rosis 23:02:23 l [place] Atheroscle rosis Active 4 [facility] A Fall Problem Active 2014-01-12 Memor ia 23:02:23 l A Fall [place] Active 4 [facility] Insomnia Problem Active 2014-01-12 Mem [facility] 23:02:23 l Insomnia [place] Active 01/12/2014 [facility] 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 Active 4 [facility] Neck Pain Problem Active 2014-01-12 Me moria 23:02:23 l Neck [place] Pain Active 4 [facility] Disturbanc Problem Active 2014-01-12 M emoria e Of Gait 23:02:23 l [place] Disturbanc e Of Gait Active 4 [facility] Occipital Problem Active 2014-01-12 [place] Neuralgia 23:02:23 l [place] Occipital Neuralgia Active 4 [facility] Peripheral Problem Active 2014-01-12 [facility] Neuropathy 23:02:23 l [place] Peripheral Neuropathy Active 01/12/2014 [facility] Allergies, Adverse Reactions, Alerts Allergy Allergy Status Severity Reaction(s) Onset Inactive Treating Comm ents Source Name Type Date Date Clinician No Known No Known Active [facility] Allergie Jamila miller s Family History Family Member Diagnosis Comments Start Date Stop Date Source Unknown Family Family History 2014-01-12 2014-01-12 Kade Deras Member 23:02:23 23:02:23 Social History Social Habit Start Date Stop Date Quantity Comments Source History [facility] Alcohol Std Drinks Medica l Center History [facility] - Alcohol Binge Medical K[facility] ter Sex Assigned At [facility] Tobacco use and 2019-05-10 2019-05-[address] [facility] [address] [facility] kes - exposure 00:00:00 00:00:00 [facility] Alcohol intake 2019-05-10 2019-05-10 Current [facility] St Yin es - 00:00:00 00:00:00 non-drinker of Medical Ce nter alcohol (finding) History [facility] 2019-05-10 2019-05-[address] [facility] - Alcohol Frequency 00:00:00 00:00:00 [facility] Social History 2014-01-12 2014-01-12 [facility] gin 23:02:23 23:02:23 Smoking Status Start Date Stop Date Source Never smoker [facility] Medications Ordered Filled Start Stop Current Ordering Indication Dosage Frequency Signature Comments Components Source Medication Medication Date Date Medication? Clinician (SIG) Name Name aspirin 81 2019-0 2020- No 81mg QD Take [address] [facility] MG chewable 05-12- tablet (81 L [facility] - tablet 00:00: 23:59 mg total) Medic al 00 :00 by mouth Center daily. atenolol 2018- Yes 100mg QD Take [address] (TENORMIN) 7-23 tablets [facility] - 50 MG 00:00: (100 mg Medical tablet 00 total) by Center mouth daily. isosorbide 2019- Yes TK [address] [facility] mononitrate 7-09 QD. [facility] - (IMDUR) 60 00:00: Medical MG 24 hr 00 Center tablet traMADol 2019- Yes TK [address] [facility] (ULTRAM) 50 7-05 TID. [facility] - mg tablet 00:00: Medical 00 Center lisinopril Yes TK [address] [facility] (PRINIVIL,Z 6-28 QD [facility] - ESTRIL) 40 00:00: Medical MG tablet 00 [place] terazosin Yes TK [address] [facility] (HYTRIN) 2 6-28 QAM AND 2 [facility] - MG capsule 00:00: CAPSULES Q M edical 00 NIGHT [place] NIFEdipine Yes TK [address] [facility] (ADALAT CC) 6-25 QD [facility] - 30 MG 24 hr 00:00: Medica l tablet 00 [place] ALPRAZolam Yes TK [address] [facility] (XANAX) 6-22 BID PRN [facility] - 0.25 MG 00:00: FOR Medical tablet 00 ANXIETY [place] citalopram Yes TK [address] [facility] (CELEXA) 40 6-05 QD [facility] - MG tablet 00:00: Medical 00 [place] metFORMIN Yes TK [address] [facility] (GLUCOPHAGE 5-28 BID [facility] - ) 850 MG 00:00: Medical tablet 00 [place] atorvastati Yes TK [address] [facility] (LIPITOR) 5-12 QD [facility] - 10 MG 00:00: Medical tablet 00 [place] ALPRAZolam Yes .25mg Q.5D Take 0.25 [place] (XANAX) 2-16 mg by [facility] 0.25 MG 12:01: mouth 2 st tablet 12 (two) times a day as needed for anxiety. simvastatin Yes 40mg QD Take 40 mg [place] (ZOCOR) 40 2-16 by mouth Metho di MG tablet 12:01: nightly. st 12 lisinopril Yes 40mg QD Take 40 mg [place] (PRINIVIL,Z 2-16 by mouth Meth nona ESTRIL) 20 12:01: daily. st mg tablet 12 NIFEdipine Yes 30mg QD Take 30 mg [place] XL 2-16 by mouth [facility] (PROCARDIA 12:01: daily. st XL) 30 MG 12 24 hr tablet traMADol Yes 50mg Q.[id number] Take 50 mg [place] (ULTRAM) 50 2-16 [id number] by mouth 3 [facility] mg tablet 12:01: 3D (three) st 12 times a day as needed for moderate pain. aspirin Yes 81mg QD Take 81 mg [place] (ECOTRIN) 2-16 by mouth Method i 81 MG 12:01: daily. st enteric 12 coated tablet labetalol Yes 600mg Q.5D Take [address] [address] (NORMODYNE) 2-16 mg by Methodi 300 MG 12:01: mouth 2 st tablet 12 (two) times a day. citalopram Yes 20mg QD Take 20 mg [place] (CeleXA) 10 2-16 by mouth Meth nona MG tablet 12:01: daily. st 12 Citalopram Yes (Active) Me [place] Hydrobromid 3-26 l e 20 MG 23:02: Harry Oral Tablet 23 MetFORMIN Yes (Active) Mem oria HCl 500 MG 3-26 l Oral Tablet 23:02: [place] walker 23 Advil 200 Yes (Active) Mem oria MG Oral 3-26 l Capsule 23:02: Harry 23 Hydrochloro Yes (Active) M em[place] thiazide 25 3-26 l MG Oral 23:02: [place] Tablet 23 Hydrocodone Yes (Active) M emoria -Acetaminop 3-26 l hen 5-325 23:02: [place] MG Oral 23 Tablet Gabapentin Yes ; [...] 10 Vitamin D Yes (Active) Mem oria 66805 UNIT 4-09 l CAPS 03:34: Harry 10 [...] 40 MG Oral 7-02 l Tablet 22:46: [place] 08 Lunesta 2 Yes (Active) Mem oria MG Oral 7-02 l Tablet 22:46: [place] 08 Metoprolol Yes (Active) Me moria Succinate 7-02 l 25 MG Oral 22:46: [place] Tablet 08 Extended Release 24 Hour ALPRAZolam Yes (Active) Me moria 0.25 MG 7-02 l Oral Tablet 22:46: [place] walker 08 TraMADol Yes (Active) Amandeep demond HCl 50 MG 7-02 l Oral Tablet 22:46: [place] 08 Simvastatin Yes ; Start Mem oria 40 MG Oral 12-11 Date: l Tablet 06:00: 12/11/2011 Nataly nn 00 (Active) Metoprolol Yes ; Start Amandeep demond Succinate 12-11 Date: l 25 MG Oral 06:00: 12/11/2011 [place] Tablet 00 (Active) Extended Release 24 Hour PredniSONE Yes ; Start Amandeep demond 20 MG Oral 12-11 Date: l Tablet 06:00: 12/11/2011 Nataly nn 00 (Active) TraMADol Yes ; Start Memori a HCl 50 MG 12-11 Date: l Oral Tablet 06:00: 12/11/2011 [place] 00 (Active) NovoLIN N Yes ; Start Memor ia 100 UNIT/ML 12-11 Date: l Subcutaneou 06:00: 12/11/2011 [place] s 00 (Active) Suspension Lunesta 2 Yes ; Start Memor ia MG Oral 12-11 Date: l Tablet 06:00: 12/11/2011 Nataly nn 00 (Active) ALPRAZolam Yes ; Start Amandeep demond 0.5 MG Oral 12-11 Date: l Tablet 06:00: 12/11/2011 Nataly nn 00 (Active) Metoprolol 2012-0 Yes ; Start Amandeep demond Succinate 12-11 Date: l ER 25 MG 06:00: 12/11/2011 Her genao Oral Tablet 00 (Active) Extended Release 24 Hour Procedures This patient has no known procedures. Plan of Care Planned Activity Planned Date Details Comments Source Future Scheduled 2021-06-[address] [facility] - Test 00:00:00 (Season Ended) [code = Medic al Center INFLUENZA VACCINE (Season Ended)] Future Scheduled 2021-05-20 INFLUENZA VACCINE [place] [facility] 00:00:00 [code = INFLUENZA VACCINE] Future Scheduled 2019-11-[address] [facility] - Test 00:00:00 [facility] (procedure) [code = 59662043] Future Scheduled 1997 PNEUMOCOCCAL 65+ YRS [facility] - Test 00:00:00 (1 of 1 - Medical Center [id number] PCV13) [code = PNEUMOCOCCAL 65+ YRS (1 of 1 - [id number] PCV13)] Future Scheduled 1995-10-[address] [facility] - Test 00:00:00 WELLNESS (YEAR 2 or Medical Center FIRST YEAR if no IPPE) [code = MEDICARE ANNUAL WELLNESS (YEAR 2 or FIRST YEAR if no IPPE)] Future Scheduled 1982 SHINGLES VACCINES (#1) [place] [facility] 00:00:00 [code = SHINGLES VACCINES (#1)] Future Scheduled 1982 SHINGLES VACCINES ([address] [facility] - Test 00:00:00 of 2) [code = SHINGLES Medic al Center VACCINES (1 of 2)] Future Scheduled 1951 DTAP/TDAP/TD VACCINES [facility] Test 00:00:00 (1 - Tdap) [code = Medical C enter DTAP/TDAP/TD VACCINES (1 - Tdap)] Future Scheduled 1944 COVID-19 VACCINE (1) [facility] 00:00:00 [code = COVID-19 VACCINE (1)] Future Scheduled 1944 COVID-19 VACCINE (1) [facility] - Test 00:00:00 [code = COVID-[address] VACCINE (1)] Future Scheduled 1942 DIABETES: RETINAL EYE [place] [facility] 00:00:00 EXAM [code = DIABETES: RETINAL EYE EXAM] Future Scheduled 1942 DIABETIC FOOT EXAM [place] [facility] 00:00:00 [code = DIABETIC FOOT EXAM] Future Scheduled 1942 DIABETIC EYE EXAM [facility] - Test 00:00:00 [code = DIABETIC EYE Medical Center EXAM] Future Scheduled [address] [facility] - Test 00:00:00 examination Medical Center (regime/therapy) [code = 043471644] Future Scheduled 1942 Urine screening for [facility] - Test 00:00:00 protein (procedure) [facility] [code = 429566187] Encounters Start End Encounter Admission Attending Care Care Encounter Source Date/Time Date/Time Type Type Clinicians Facility Department ID 2021-01-13 2021-01-13 Outpatient JERMAIN RASHID MDA MDA [id number] 13:07:53 13:07:53 ANAI walker 2020-12-20 2020-12-20 Person Investigator Helder Dyer [facility] [id number] 09:27:20 09:42:20 Visit Lab Main Gissell [id number] Steven [id number] [facility] [id number] [address] 2020-12-20 2020-12-20 Orders Doctor WAGNER [id number] 00:00:00 00:00:00 Only Unassigned, JAMIA [id number] [facility] [id number] [id number] 2020-12-19 2020-12-19 Outpatient JERMAIN CHAVEZ MDA [id number] 14:55:52 14:55:52 Shane walker 2020-04-04 2020-04-04 Emergency Aldo [facility] [id number] 11:50:22 13:10:00 Jw Borrero [id number] Steven 4.2.7.2.686 [place] [id number] 2020-02-07 2020-02-07 Outpatient CLEMENCIA CHRISTIE [facility] [id number] [place] 00:00:00 00:00:[address] 2019-12-27 2019-12-27 Outpatient CLEMENCIA CHRISTIE [facility] [id number] [place] 00:00:00 00:00:[address] 2019-12-21 2019-12-21 Office REBECA Gonzalez [id number] 10:13:18 12:14:55 Visit Mohammad AMBULATOR [id number] Y [id number] [id number] 2019-12-20 2019-12-20 Outpatient CLEMENCIA CHRISTIE [facility] [id number] [place] 00:00:00 00:00:[address] 2019-06-01 2019-06-01 Office Carlos, REBECA [id number] 11:40:47 12:30:03 Visit Mohammad AMBULATOR [id number] Y [id number] [id number] 2014-01-12 2014-01-12 Outpatient 3 3 [id number] 18:02:24 18:02:23 2013-11-04 2013-11-04 Outpatient 3 3 [id number] 17:46:54 17:46:53 2013-07-05 2013-07-05 Outpatient 3 3 [id number] 15:21:04 15:21:04 2013-07-05 2013-07-05 Outpatient 3 3 [id number] 11:03:11 11:03:10 2013-01-25 2013-01-25 Outpatient 3 3 [id number] 22:34:29 22:34:10 2012-07-17 2012-07-17 Outpatient 3 3 [id number] 18:32:22 18:32:08 2012-06-29 2012-06-29 Outpatient 3 3 [id number] 10:32:36 10:32:22 2012-04-20 2012-04-20 Outpatient 3 3 [id number] 17:46:20 17:46:08 2012-04-20 2012-04-20 Outpatient 3 3 [id number] 10:19:38 10:19:25 2012-04-20 2012-04-20 Outpatient 3 3 [id number] 09:39:28 09:39:15 Results Test Description Test Time Test Comments Results Result Comments Source POCT-GLUCOSE METER 2019-05-11 12:31:00 Test Item Value Reference Range Interpretation Comme nts POC-GLUCOSE METER (BEAKER) (test 225 mg/dL 70-110 H TESTED AT [facility] [address] code = 1538) [facility] [id number] POCT-GLUCOSE [id number] 08:13:00 Test Item Value Reference Range Interpretation Comments POC-GLUCOSE METER 107 mg/dL 70-110 TESTED AT [facility] [address] (BEAKER) (test code = [place] 1538) [id number] 08:00:00 Test Item Value Reference Range Interpretation Comments PHOSPHORUS (BEAKER) (test code = 3.0 mg/dL 2.3-4.7 604) [id number] 08:00:00 Test Item Value Reference Range Interpretation Comments MAGNESIUM (BEAKER) (test code = 2.0 mg/dL 1.6-2.6 627) BASIC METABOLIC [id number] 08:00:00 Test Item Value Reference Range Interpretation [...] NOT APPLICABLE FOR DIALYSIS PATIEN TS. POCT-GLUCOSE [id number] 21:29:00 Test Item Value Reference Range Interpretation Comments POC-GLUCOSE METER 95 mg/dL 70-110 TESTED AT [facility] [address] (BEAKER) (test code = [place] [address] 1538) POCT-GLUCOSE [id number] 11:16:00 Test Item Value Reference Range Interpretation Comments POC-GLUCOSE METER 131 mg/dL 70-110 H TESTED AT [facility] 67[address] (BEAKER) (test code = LAISHA Moe [facility] 1538) [address] HEMOGLOBIN [id number] 08:42:00 Test Item Value Reference Range Interpretation Comments HEMOGLOBIN A1C (BEAKER) (test code = 6.1 % 4.3-6.1 368) VITAMIN B12 AND [id number] 08:25:00 Test Item Value Reference Range Interpretation Comments VITAMIN B12 (BEAKER) (test code = > pg/mL 213-816 H 774) FOLATE (BEAKER) (test code = 362) 8.6 ng/mL >=7.0 TSH/FREE T4 IF [id number] 08:20:00 Test Item Value Reference Range Interpretation Comments THYROID STIMULATING HORMONE 2.18 uIU/mL 0.35-4.94 (BEAKER) (test code = 772) [id number] 06:32:00 Test Item Value Reference Range Interpretation Comments PHOSPHORUS (BEAKER) (test code = 2.3 mg/dL 2.3-4.7 604) [id number] 06:32:00 Test Item Value Reference Range Interpretation Comments MAGNESIUM (BEAKER) (test code = 1.7 mg/dL 1.6-2.6 627) BASIC METABOLIC [id number] 06:32:00 Test Item Value Reference Range Interpretation [...] NOT APPLICABLE FOR DIALYSIS PATIEN TS. LIPID [id number] 06:32:00 Test Item Value Reference Range Interpretation Comments TRIGLYCERIDES (BEAKER) (test code = 174 mg/dL 540) CHOLESTEROL (BEAKER) (test code = 194 mg/dL 631) HDL CHOLESTEROL (BEAKER) (test code 72 mg/dL = 976) LDL CHOLESTEROL CALCULATED (BEAKER) 87 mg/dL (test code = 633) Triglyceride Reference Range: Low Risk <150 Borderline 150-199 High Risk 200-499 Very High Risk >=500Cholesterol Reference Range: Low Risk <200 Borderline 200-239 High Risk >240HDL Cholesterol Reference Range: Low Risk >=60 High Risk <40LDL Cholesterol Reference Range: Optimal <100 Near Optimal 100-129 Borderline 130-159 High 160-189 Very High >=190MR, MRA, BRAIN, WITHOUT [id number] 06:17:00Reason for exam:- >Ischemic Stroke EvaluationFINAL REPORT MRI Brain without contrast Clinical History: Ischemic Stroke EvaluationIschemic Stroke Evaluation Technique: MRI of the brain utilizing axial T2, FLAIR, GRE, DWI; sag ittal and coronal T1-weighted images. MRA of the head utilizing 3-D wdyg-ju-kraqcg technique, with 3-D reconstructions. MRA of the neck utilizing 2- D and 3-D nozk-mr-bgojxt technique, with 3-D reconstructions. Comparisons: CTA head [...] MRA head: No evidence for a major [place] proximal branch vessel occlusion. Multifocal [...] carotid artery is patent. Signed: Manolo David [facility] Verified Date/Time: 05/10/2019 06:17:53 Electronicallysigned by: MANOLO DAVID MD on 05/10/2019 06:17 AMMR, MRA, NECK, WITHOUT IV CONTRAST 2019-05-10 06:17:00Reason for exam:->Ischemic Stroke EvaluationFINAL REPORT MRI Brain without contrast Clinical History: Ischemic Stroke EvaluationIschemic Stroke Evaluation Technique: MRI of the brain utilizing axial T2, FLAIR, GRE, DWI; sagittal and coronal T1-weighted images. MRA of the head utilizing 3-D totq-mc-jfmqyv technique, with 3-D reconstructions. MRA of the neck utilizing 2-D and 3-D jbea-ea-jwdecq technique, with 3-D reconstructions. Comparisons: CTA head [...] well seen secondary to technique. The previously described moderate to severe origin [...] MRA head: No evidence for a major [place] proximal branch vessel occlusion. Multifocal [...] carotid artery is patent. Signed: Manolo David [facility] Verified Date/Time: 05/10/2019 06:17:53 Electronicallysigned by: MANOLO DAVID MD on 05/10/2019 06:17 AMMR, BRAIN, WITHOUT [id number] 06:17:00Reason for exam:->Ischemic Stroke EvaluationFINAL REPORT MRI Brain without contrast Clinical History: Ischemic Stroke EvaluationIschemic Stroke Evaluation Technique: MRI of the brain utilizing axial T2, FLAIR, GRE, DWI; sagittal and coronal T1-weighted images. MRA of the head utilizing 3-D vcjb-jc-lttmcw technique, with 3-D reconstructions. MRA of the neck utilizing 2- D and 3-D jwch-yj-ecdjsn technique, with 3-D reconstructions. Comparisons: CTA head [...] MRA head: No evidence for a major [place] of [place] proximal branch vessel occlusion. Multifocal [...] carotid artery is patent. Signed: [facility]olo [facility] Verified Date/Time: 05/10/2019 06:17:53 Electronicallysigned by: MANOLO DAVID MD on 05/10/2019 06:17 AMPOCT-GLUCOSE [id number] 05:54:00 Test Item Value Reference Range Interpretation Comments POC-GLUCOSE METER 104 mg/dL 70-110 TESTED AT [facility] 67[address] (BEAKER) (test code = [place] 1538) [address] CBC W/PLT COUNT & AUTO [id number] 05:45:00 Test Item Value Reference Range Interpretation [...] PERCENT (BEAKER) (test code = 2801) TROPONIN [id number] 20:21:00 Test Item Value Reference Range Interpretation [...] code = 516) SOURCE(BEAKER) (test code = 4625) B-TYPE NATRIURETIC FACTOR (BNP)2019-05-09 20:15:00 Test Item Value Reference Range Interpretation Comments B-TYPE NATRIURETIC PEPTIDE (BEAKER) 17 pg/mL 0-100 (test code = 700) [id number] 20:14:00 Test Item Value Reference Range Interpretation Comments PHOSPHORUS (BEAKER) (test code = 2.7 mg/dL 2.3-4.7 604) [id number] 20:14:00 Test Item Value Reference Range Interpretation Comments MAGNESIUM (BEAKER) (test code = 1.3 mg/dL 1.6-2.6 L 627) COMPREHENSIVE METABOLIC [id number] 20:14:00 Test Item Value Reference Range Interpretation [...] ATED GFR. RAD, CHEST, 1 VIEW, NON [id number] 20:02:00Reason for exam:->NEUROLOGIC PROBLEMShould this be performed [...] Osseous structures are unremarkable. Signed: Manolo David [facility] Verified Date/Time: 05/09/2019 20:02:43 CT, CAROTID, [id number] 20:00:00FINAL REPORT CT, CTANGIO BRAIN, CT, CAROTID, [...] mild stenosis of right P2 segment but graphic technician appear patent distally.Venous opacification: Major dural sinuses [...] Signed: Lenny Sousa [facility] Verified Date/Time: 05/09/201920:00:[address] [facility] [id number] 20:00:00FINAL REPORT CT, CTANGIO BRAIN, CT, CAROTID, [...] mild stenosis of right P2 segment but graphic technician appear patent distally.Venous opacification: Major dural sinuses [...] Signed: Lenny Sousa [facility] Verified Date/Time: 05/09/201920:00:21 /[id number] 19:39:00 Test Item Value Reference Range Interpretation Comments PROTIME (BEAKER) (test code = 13.8 seconds 11.9-14.2 759) INR (BEAKER) (test code = 370) 1.1 <=5.9 PARTIAL THROMBOPLASTIN TIME 31.6 seconds 22.5-36.0 (BEAKER) (test code = 760) Effective 03/17/2019: PT Reference Range ChangeNew: 11.9-14.2 Previous: 11.7- 14.7RECOMMENDED COUMADIN/WARFARIN INR THERAPY RANGESSTANDARD DOSE: 2.0-3.0 Includes: PROPHYLAXIS for venous thrombosis, systemic embolization; TREATMENT for venous thrombosis and/or pulmonary embolus.HIGH RISK: Target INR is2.5-3.5 for patients wiht mechanical heart valves.CBC W/PLT COUNT & AUTO [id number] 19:28:00 Test Item Value Reference Range Interpretation [...] (BEAKER) (test code = 2801) CT, BRAIN/STROKE [id number] 19:10:00Reason for exam:->expressive aphasiaWhat is the patient's [...] Lenny Sousa [facility] Verified Date/Time: 05/09/2019 19:10:54 B-Type Natriuretic Peptide 2017-03-23 14:38:00 Test Item Value Reference Range Interpretation Comments B-Type Natriuretic Peptide (test 50.8 pg/mL 0.0-100.0 N code = 636203) Sed Rate ESR ([place])2017-03-20 23:21:00 Test Item Value Reference Range Interpretation Comments ESR (test code = HESR) 36 mm/Hr 0-20 H Thyroid Stimulating Hormone (TSH)2017-03-20 23:11:00 Test Item Value Reference Range Interpretation Comments TSH (test code = TSH) 2.22 mIU/mL 0.270-4.200 N Lipid [id number] 23:05:00 Test Item Value Reference Range Interpretation Comments Cholesterol (test 308 mg/dL 0-200 H code = CHOL) Triglycerides (test 155 mg/dL 9-200 N code = TRIG) HDL (test code = 79 mg/dL 50-60 H HDL) Chol/HDL (test code 3.9 Ratio 0.0-4.4 N = CHOLPHDL) LDL, Calculated 198 0-130 H (NOTE)RISK O F HEART (test code = LDLC) DISEASEPu blished by [place] Heart AssociationAnal yte Optim al Boderline Increased RiskC HOL <200 200-239 >240TRI G <150 150-199 >200HDL Male: >60 <40HDL Female: >60 <50 LDL < 100 130-15 9 >160 LDL NEAR OPTIMAL IS 100- 129 VLDL (test code = 31 mg/dL 5-40 N VLDL) LDL/HDL (test code = 3 LDLPHDL) Comprehensive Metabolic [id number] 23:05:00 Test Item Value Reference Range Interpretation [...] is not provided , and the patient isAfrican-Ameri can, multiply by 1.2 12. If sex [...] National Kidney Foundation,http ://nkd ep.nih.gov CBC with [id number] 22:00:00 Test Item Value Reference Range Interpretation [...] code = ALYMPH) 1.4 K/cumm 0.5-4.6 N [place] Abs (test code = AMONO) 0.5 K/cumm 0.0-1.2 N Eos Abs (test code = AEOS) 0.17 K/cumm 0.00-0.74 N Baso Abs (test code = ABASO) 0.1 K/cumm 0.00-0.21 N
[2021-04-25 20:38] LABS: Absolute Lymphocytes (CBC) 1.9 K/uL (0.7-4.9); Basophils % 0.7 % (0-1.3); Hematocrit 31.5 % (36.0-45.0); Lymphocytes % 23.4 % (15.3-44.8); MPV 9.6 fL (7.6-11.3); RBC Red Blood Cell Count 3.66 M/uL (3.86-4.86)
[2021-04-25 20:39] LABS: Protime INR 1.03
[2021-04-25 20:53] LABS: ALT/SGPT 18 U/L (12-78); AST/SGOT 11 U/L (15-37); Albumin 3.6 g/dL (3.4-5.0); Alkaline Phosphatase 114 U/L (45-117); BUN Blood Urea Nitrogen 17 mg/dL (7-18); Bicarbonate 28 mmol/L (21-32); Bilirubin Direct < 0.1 mg/dL (0-0.2); Bilirubin Total 0.3 mg/dL (0.2-1.0); Glucose Level 107 mg/dL (74-106); Magnesium 1.6 mg/dL (1.8-2.4); NT PRO-BNP 146 pg/mL (<450); Potassium 3.6 mmol/L (3.5-5.1); Protein, Total 7.6 g/dL (6.4-8.2); Sodium Level 142 mmol/L (136-145); Troponin (Emerg Dept Use Only) < 0.02 ng/mL (0.0-0.045)
--- NOTE | 2021-04-25 20:56 | RAD REPORT ---
EXAM DESCRIPTION: Tal Single View04/25/2021 8:44 pm CLINICAL HISTORY: Chest pain COMPARISON: 2017 FINDINGS: The lungs appear clear of acute infiltrate. The heart is moderately enlarged. Aorta is tortuous/ectatic IMPRESSION: No acute abnormalities displayed
[2021-04-25 21:23] LABS: Urine Blood Negative (Negative); Urine Glucose Negative (Negative); Urine Protein Negative (Negative); Urine Specific Gravity 1.015 (1.005-1.030); Urine pH 5.5 (5.0-7.0)
[2021-04-25] MEDS ORDERED: LABETALOL 20 MG/4ML SYRINGE IV ONE (23:04)
--- NOTE | 2021-04-25 23:44 | ER ---
Nurse's Notes [facility] Name: Beatrice Myles Age: 89 yrs Sex: Female : 1930 Arrival Date: 04/25/2021 Time: 20:13 Bed 2 Private MD: Diagnosis: HYPERTENSIVE EMERGENCY Presentation: 04/25 20:13 Chief complaint: EMS states: Reports high blood pressure EMS reported bp on scene was ea 200/130 324 ASA, nitro x 1 and 20G to left AC initiated per EMS. BGL 125. Coronavirus screen: At this time, the client does not indicate any symptoms associated with coronavirus-19. Ebola Screen: No symptoms or risks identified at this time. Initial Sepsis Screen: Does the patient meet any 2 criteria? No. Patient's initial sepsis screen is negative. Does the patient have a suspected source of infection? No. Patient's initial sepsis screen is negative. Risk Assessment: Do you want to hurt yourself or someone else? Patient reports no desire to harm self or others. Onset of symptoms was April 25, 2021. 20:13 Method Of Arrival: EMS: [facility] [place], [place] [facility] ea 20:13 Acuity: PAUL 3 ea Historical: - Allergies: 20:17 No Known Allergies; ea - PMHx: 20:17 Hypertension; Diabetes - NIDDM; Depression; colon cancer; aortic valve stenosis; ea anxiety/depression; - Immunization history:: Adult Immunizations up to date. - Social history:: Smoking status: Patient denies any tobacco usage or history of. Screenin:17 Abuse screen: Denies threats or abuse. Nutritional screening: No deficits noted. ea Tuberculosis screening: No symptoms or risk factors identified. Fall Risk None identified. Assessment: 20:25 General: Appears in no apparent distress. Behavior is appropriate for age. Pain: ea Complains of pain in right leg. Neuro: Level of Consciousness is awake, alert, obeys commands, Oriented to person, place, time. Cardiovascular: Patient's skin is warm and dry. Respiratory: Airway is patent Respiratory effort is even, unlabored, Respiratory pattern is regular, symmetrical. Derm: Skin is pink, warm \T\ dry. 23:00 Reassessment: Patient and/or family updated on plan of care and expected duration. Pain ea level reassessed. Patient is alert, oriented x 3, equal unlabored respirations, skin warm/dry/pink. 04/26 00:38 Reassessment: Patient and/or family updated on plan of care and expected duration. Pain ea level reassessed. Patient is alert, oriented x 3, equal unlabored respirations, skin warm/dry/pink. Discharge instruction given to patient verbalized the understanding of instruction. Pt left ED ambulatory tolerating well. 00:46 Reassessment: Patient and/or family updated on plan of care and expected duration. Pain ea level reassessed. Patient is alert, oriented x 3, equal unlabored respirations, skin warm/dry/pink. Awaiting on ride home. 01:20 Reassessment: Patient and/or family updated on plan of care and expected duration. Pain ea level reassessed. Patient is alert, oriented x 3, equal unlabored respirations, skin warm/dry/pink. [facility] EMS at facility for transport back home. 04:21 Reassessment: Patient and/or family updated on plan of care and expected duration. Pain ea level reassessed. Patient is alert, oriented x 3, equal unlabored respirations, skin warm/dry/pink. Pt admitted to fourth floor left ED via stretcher per ED nurse. Pt tolerating well. Vital Signs: 04/25 20:13 BP 185 / 76; Pulse 89; Resp 18; Temp 97.6; Pulse Ox 100% ; Weight 111.13 kg; Height 5 ea ft. 5 in. (165.10 cm); Pain 0/10; 21:00 BP 138 / 93; Pulse 77; Resp 18; Pulse Ox 100% on R/A; ea 22:16 BP 213 / 100; Pulse 81; Resp 18; Pulse Ox 99% on R/A; ea 22:59 BP 175 / 79; Pulse 68; Resp 18; Pulse Ox 98% ; ea 04/26 00:00 BP 180 / 75; Pulse 67; Resp 18; Pulse Ox 98% ; ea 03:08 BP 171 / 60; Pulse 63; Resp 18; Pulse Ox 98% on R/A; ea 04:14 BP 154 / 66; Pulse 57; Resp 18; Pulse Ox 98% ; ea 04/25 20:13 Body Mass Index 40.77 (111.13 kg, 165.10 cm) ea ED Course: 04/25 20:13 Patient arrived in ED. ea 20:17 Triage completed. ea 20:17 Arm band placed on right wrist. Patient placed in an exam room, on a stretcher, on ea pulse oximetry. 20:17 Patient has correct armband on for positive identification. Bed in low position. Call ea light in reach. 20:18 Katherine Starkey RN is Primary Nurse. ea 20:18 Inserted saline lock: 20 gauge in left antecubital area, using aseptic technique. ea 20:21 Jorge Luis Veloz MD is Attending Physician. tw4 20:44 XRAY Chest (1 view) In Process Unspecified. EDFL 04/26 00:30 No provider procedures requiring assistance completed. ea 00:49 IV discontinued, intact, bleeding controlled, No redness/swelling at site. Pressure ea dressing applied. 01:49 Inserted saline lock: 22 gauge in right antecubital area, using aseptic technique. ea 01:51 Akhil Del Toro MD is Hospitalizing Provider. tw4 Administered Medications: 04/25 22:46 Drug: Labetalol 20 mg Route: IVP; Infused Over: 2 mins; Site: left antecubital; ea 23:15 Follow up: Response: No adverse reaction ea 04/26 01:49 Drug: Labetalol 20 mg Route: IVP; Infused Over: 2 mins; Site: right antecubital; ea 03:08 Follow up: Response: No adverse reaction ea 01:49 Drug: Metoprolol 25 mg Route: PO; ea 03:08 Follow up: Response: No adverse reaction ea Outcome: 04/25 23:43 Discharge ordered by . tw4 23:47 Discharge ordered by MD. tw4 04/26 00:30 Condition: stable ea Discharge instructions given to patient, Instructed on discharge instructions, follow up and referral plans. Demonstrated understanding of instructions, follow-up care. 01:19 Discharged to home Pt left via EMS. ea 01:20 Patient left the ED. ea 01:55 Decision to Hospitalize by Provider. tw4 03:10 Condition: stable ea 03:10 Instructed on the need for admit, Demonstrated understanding of instructions. 04:22 Patient left the ED. ea Signatures: Dispatcher [employer] EDFL Katherine Starkey RN RN ea Wadley, Terrence, MD MD tw4
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
[2021-04-26] MEDS ORDERED: METOPROLOL TAR 25 MG TAB ONE (01:59)
[2021-04-26] MEDS ORDERED: LABETALOL 20 MG/4ML SYRINGE IV ONE (01:59)
--- NOTE | 2021-04-26 02:44 | P.HP ---
Certification for Inpatient Patient admitted to: Observation With expected LOS: <2 Midnights Patient will require the following post-hospital care: None Practitioner: I am a practitioner with admitting privileges, knowledge of patient current condition, hospital course, and medical plan of care. Services: Services provided to patient in accordance with Admission requirements found in Title 42 Section 412.3 of the Code of Federal Regulations <EdgarnaraRobert - Last Filed: 04/26/21 02:40> Patient History Date of Service: 04/26/21 Primary Care Provider: Dr. Magana Reason for admission: Uncontrolled hypertension, chest pain History of Present Illness: 89-year-old female with history of hypertension, diabetes mellitus type 2, depression/anxiety, CAD status post stents presents emergency department for uncontrolled hypertension and intermittent chest pain. Patient reports intermittent chest pain over the course of the last 1 week more often than normal requiring her take nitroglycerin, pain has been relieved with nitroglycerin. Patient reports her blood pressure in the 200 systolic range tonight which brought her into the emergency department for evaluation. Labs significant for magnesium 1.6 hemoglobin 10.6 hematocrit 31.5 EKG without any acute changes chest x-ray unremarkable. Patient was given multiple rounds of labetalol IV and blood pressure still was significantly elevated, ED provider wishes to admit under observation for further evaluation and management. - Past Medical/Surgical History Diabetic: Yes -: HTN -: Diabetes mellitus type 2 -: Depression with anxiety -: History of colon cancer status post colectomy -: Obesity -: Urinary incontinence -: CAD -: Left Knee replacement -: Hysterectomy -: Colon resection for colon cancer Psychosocial/ Personal History: She is a , has 1 child, lives by herself. - Family History Sister -: Hypertension, Diabetes, Stroke - Social History Smoking Status: Never smoker Alcohol use: No CD- Drugs: No Caffeine use: Yes Place of Residence: Home <Robetr Nath - Last Filed: 04/26/21 02:40> Date of Service: 04/26/21 <Akhil Del Toro - Last Filed: 04/26/21 16:58> Allergies No Known Allergies Allergy (Verified 04/26/21 04:44) Home Medications: Allopurinol 100 mg PO DAILY 04/26/21 Aspirin [Aspirin EC 81 MG] 81 mg PO DAILY 04/26/21 Atenolol [Tenormin] 50 mg PO DAILY 04/26/21 Atorvastatin Calcium [Lipitor] 10 mg PO BEDTIME 04/26/21 Cyanocobalamin [Vitamin B-12] 1,000 mcg PO DAILY 04/26/21 Lisinopril [Zestril] 40 mg PO DAILY 04/26/21 Metformin HCl [Glucophage] 850 mg PO BIDWM 04/26/21 Terazosin HCl 2 mg PO BID 04/26/21 hydroCHLOROthiazide [Hydrochlorothiazide] 25 mg PO DAILY 04/26/21 Review of Systems 10-point ROS is otherwise unremarkable Cardiovascular: Chest Pain, Palpitations, As per HPI <Robert Nath - Last Filed: 04/26/21 02:40> Physical Examination - Vital Signs Temperature: 97.6 F Blood Pressure: 180/75 Pulse: 67 Respirations: 18 - Physical Exam General: Alert, In no apparent distress, Oriented x3 HEENT: Atraumatic, PERRLA, Mucous membr. moist/pink, EOMI, Sclerae nonicteric Neck: Supple, 2+ carotid pulse no bruit, No LAD, Without JVD or thyroid abnormality Respiratory: Clear to auscultation bilaterally, Normal air movement Cardiovascular: Regular rate/rhythm, Normal S1 S2 Gastrointestinal: Normal bowel sounds, No tenderness Musculoskeletal: No tenderness Integumentary: No rashes Neurological: Normal speech, Normal strength at 5/5 x4 extr, Normal tone, Normal affect - Studies Laboratory Data (last 24 hrs) 04/25/21 20:19: PT 11.9, INR 1.03 04/25/21 20:19: WBC 8.20, Hgb 10.6 L, Hct 31.5 L, Plt Count 199 04/25/21 20:19: Sodium 142, Potassium 3.6, BUN 17, Creatinine 0.91, Glucose 107 H, Magnesium 1.6 L, Total Bilirubin 0.3, AST 11 L, ALT 18, Alkaline Phosphatase 114 <Robert Nath - Last Filed: 04/26/21 02:40> - Studies Laboratory Data (last 24 hrs) 04/25/21 20:19: PT 11.9, INR 1.03 04/25/21 20:19: WBC 8.20, Hgb 10.6 L, Hct 31.5 L, Plt Count 199 04/25/21 20:19: Sodium 142, Potassium 3.6, BUN 17, Creatinine 0.91, Glucose 107 H, Magnesium 1.6 L, Total Bilirubin 0.3, AST 11 L, ALT 18, Alkaline Phosphatase 114 <Akhil Del Toro - Last Filed: 04/26/21 16:58> Assessment and Plan - Plan Assessment Uncontrolled hypertension Chest pain history of CAD rule out ACS Diabetes mellitus type 2 Hyperlipidemia Plan Uncontrolled hypertension: Have continued home medications including atenolol, hydrochlorothiazide, lisinopril, terazosin. Have added amlodipine, p.r.n. hydralazine IV. Cardiology consulted for additional assistance. Continue to monitor vital signs throughout admission, DVT prophylaxis Lovenox 40 mg subcutaneous once daily. Chest pain history of CAD rule out ACS: Trend troponins, monitor on telemetry, cardiology consulted. Patient reports she has been taking her nitroglycerin more often than normal over the course of the last 2 weeks, will provide patient with p.r.n. nitro, continue beta-berry, statin therapy. Diabetes mellitus type 2 : A.c. HS Accu-Cheks therapy. Hyperlipidemia: Home medication continued. Discharge Plan: Home Plan to discharge in: 24 Hours - Advance Directives Does patient have a Living Will: No Does patient have a Durable POA for Healthcare: No - Code Status/Comfort Care Code Status Assessed: Yes (DNR) Critical Care: No Time Spent Managing Pts Care (In Minutes): 55 <Robert Nath - Last Filed: 04/26/21 02:40> - Plan minimal chest pain this morning restarted home meds, added norvasc echo ordered cardiology consulted anticipate dc home in 24-48hrs <Akhil Del Toro - Last Filed: 04/26/21 16:58>
[2021-04-26 04:45] VITALS: BMI 40.7
[2021-04-26] MEDS ORDERED: HYDRALAZINE HCL 20 MG/ML VIAL IV PRN (04:54)
[2021-04-26] MEDS ORDERED: ONDANSETRON 4 MG/2 ML VIAL IV PRN (04:54)
[2021-04-26] MEDS ORDERED: ACETAMINOPHEN 500 MG TAB PO PRN (04:54)
[2021-04-26] MEDS ORDERED: NITROGLYCERIN 0.4 MG/TAB SL PRN (04:54)
[2021-04-26] MEDS: atenoloL 50 MG TAB PO SCH (05:39)
[2021-04-26 05:48] LABS: Absolute Lymphocytes (CBC) 1.8 K/uL (0.7-4.9); Hematocrit 31.6 % (36.0-45.0); Lymphocytes % 21.3 % (15.3-44.8); MPV 9.2 fL (7.6-11.3); RBC Red Blood Cell Count 3.63 M/uL (3.86-4.86)
[2021-04-26] MEDS ORDERED: atenoloL 25 MG TAB ONE (05:55)
[2021-04-26 06:24] LABS: ALT/SGPT 19 U/L (12-78); AST/SGOT 11 U/L (15-37); Albumin 3.6 g/dL (3.4-5.0); Alkaline Phosphatase 117 U/L (45-117); BUN Blood Urea Nitrogen 16 mg/dL (7-18); Bicarbonate 31 mmol/L (21-32); Bilirubin Total 0.4 mg/dL (0.2-1.0); Glucose Level 109 mg/dL (74-106); HDL Cholesterol 83 mg/dL (40-60); LDL Cholesterol, Calculated 57 (<130); Magnesium 1.6 mg/dL (1.8-2.4); Potassium 3.5 mmol/L (3.5-5.1); Protein, Total 7.3 g/dL (6.4-8.2); Sodium Level 141 mmol/L (136-145); Troponin I < 0.02 ng/mL (0.0-0.045)
[2021-04-26] MEDS: INSULIN -REGULAR HUMAN 50 UNIT/0.5 ML ML SQ SCH ×4 (07:30→21:00)
--- NOTE | 2021-04-26 08:04 | EKG ---
Test Date: 2021-04-25 Test Time: 20:23:14 Physiotherapy Assistant: ELIER MEASUREMENT RESULTS: Intervals: Rate: 82 [place]: 194 QRSD: 80 QT: 380 QTc: 443 [place]: P: 38 [place]: 194 QRS: -38 T: 50 INTERPRETIVE STATEMENTS: Sinus rhythm with marked sinus arrhythmia Left axis deviation Pulmonary disease pattern Abnormal ECG Compared to ECG 12/26/2020 13:51:41 Left-axis deviation now present Electronically Signed On 04-26-21 08:03:33 CDT by Cullen Khan
[2021-04-26] MEDS: ENOXAPARIN 40 MG/0.4 ML SQ SCH (08:26)
[2021-04-26] MEDS: lisinopriL 20 MG TAB PO SCH (08:27)
[2021-04-26] MEDS: hydroCHLOROthiazide 25 MG TAB PO SCH (08:27)
[2021-04-26] MEDS: allopurinoL 100 MG TAB PO SCH (08:27)
[2021-04-26] MEDS: ASPIRIN EC 81 MG TAB PO SCH (08:27)
[2021-04-26] MEDS: TERAZOSIN HCL 1 MG CAP PO SCH ×2 (08:28→21:16)
[2021-04-26] MEDS ORDERED: POTASSIUM CL SA 10 MEQ TAB PO ONE (09:00)
[2021-04-26] MEDS ORDERED: AMLODIPINE 5 MG TAB PO SCH (09:00)
[2021-04-26] MEDS ORDERED: MAGNESIUM SULFATE 1 gm IVPB 1 GM/100 ML BAG IV ONE (09:00)
--- NOTE | 2021-04-26 11:08 | CON ---
Date of Consultation: 04/26/[address] Del Toro with uncontrolled hypertension on 04/26/2021. I saw the patient on 04/26/2021. History Of Present Illness: Mrs. Myles is an 89-year-old, do not resuscitate, who came in with medi zander noncompliance, severe hypertension. Denied any chest pain, shortness of breath, nausea, vomiting , diaphoresis, PND, orthopnea, pedal edema, palpitation, or syncope. Past Medical History: Include hypertension, diabetes, depression, colon cancer, aortic valve stenosi s, anxiety. Allergies: NONE. Review of Systems: Negative. Social History: Negative. Family History: Noncontributory. Medication: At home include allopurinol, aspirin, atenolol 50 daily, Lipitor 10 mg daily, lisinopril 40 mg daily, hydrochlorothiazide 25 mg daily, terazosin and metformin 850 b.i.d. Physical Examination: General: When she first came in, her blood pressure was elevated in the 180 systolic today, now is 1 57/72, sinus rhythm. HEENT: Negative. Neck: Supple with no bruit. Chest: Clear to auscultation and percussion. Cardiac: Revealed a regular rhythm and rate, aortic stenosis murmur and positive S4. Chest: Clear. Abdomen: Benign. Extremities: Revealed no clubbing, cyanosis, or edema. Diagnostic Data: Actually was fairly unremarkable overall. Impression And Plan: Hypertensive crisis. The patient needs to be back on her atenolol, lisinopril, terazosin, hydrochlorothiazide. We will certainly add Norvasc to her regimen or maybe increase her beta-berry if we have to. I would not embark an extensive cardiac workup on Mrs. Myles. She is a do not resuscitate. She is not having hypertension. I will discuss the case further with Dr. Del Toro . I am hoping that the patient can eventually go home in the near future. An echocardiogram may be reasonable. HIWOT/MAG Voice ID: [id number] Report ID: [id number]
[2021-04-26] MEDS ORDERED: ATORVASTATIN 10 MG TAB PO SCH (21:00)
[2021-04-27 00:24] VITALS: O2SAT 97
[2021-04-27 05:49] LABS: Absolute Lymphocytes (CBC) 1.6 K/uL (0.7-4.9); Basophils % 0.6 % (0-1.3); Hematocrit 30.8 % (36.0-45.0); Lymphocytes % 18.5 % (15.3-44.8); MPV 9.5 fL (7.6-11.3)
[2021-04-27] MEDS: atenoloL 50 MG TAB PO SCH (05:51)
[2021-04-27 05:56] LABS: Albumin 3.3 g/dL (3.4-5.0); Bilirubin Total 0.4 mg/dL (0.2-1.0); Magnesium 1.9 mg/dL (1.8-2.4); Potassium 3.7 mmol/L (3.5-5.1); Protein, Total 7.1 g/dL (6.4-8.2)
[2021-04-27] MEDS: INSULIN -REGULAR HUMAN 50 UNIT/0.5 ML ML SQ SCH ×2 (07:30→11:30)
--- NOTE | 2021-04-27 07:53 | ECHO ---
HEIGHT: 5 ft 5 in WEIGHT: 245 lb 0 oz DATE OF STUDY: 04/26/[address]: Cullen Khan MD 2-DIMENSIONAL: YES M.MODE: YES DOPPLER: YES COLOR FLOW: YES TDS: YES PORTABLE: NO DEFINITY: NO BUBBLE STUDY: NO DIAGNOSIS: HYPERTENSION CRISIS CARDIAC HISTORY: CATHERIZATION: NO SURGERY: NO PROSTHETIC VALVE: NO PACEMAKER: NO MEASUREMENTS (cm) DIASTOLIC (NORMALS) SYSTOLIC (NORMALS) IVSd 1.2 (0.6-1.2) LA Diam 3.1 (1.9-4.0) LVEF 58% LVIDd 3.2 (3.5-5.7) LVIDs 2.2 (2.0-3.5) %FS 30% LVPWd 1.3 (0.6-1.2) Ao Diam (2.0-3.7) 2 DIMENSIONAL ASSESSMENT: RIGHT ATRIUM: NORMAL LEFT ATRIUM: NORMAL RIGHT VENTRICLE: NORMAL LEFT VENTRICLE: NORMAL TRICUSPID VALVE: NORMAL MITRAL VALVE: MITRAL ANNULAR CALCIFICATION PULMONIC VALVE: NORMAL AORTIC VALVE: NORMAL PERICARDIAL EFFUSION: NONE AORTIC ROOT: NORMAL LEFT VENTRICULAR WALL MOTION: NORMAL. DOPPLER/COLOR FLOW: NORMAL. COMMENTS: MITRAL ANNULAR CALCIFICATION. NORMAL LEFT VENTRICULAR SIZE AND FUNCTION. NO WALL MOTION ABNORMALITY. NO EFFUSION. TECHNOLOGIST: ISAAC HEREDIA
[2021-04-27 08:54] VITALS: TEMP 96.9
[2021-04-27] MEDS ORDERED: AMLODIPINE 10 MG TAB PO SCH (09:00)
[2021-04-27] MEDS ORDERED: POTASSIUM CL SA 10 MEQ TAB PO ONE (09:00)
[2021-04-27] MEDS: TERAZOSIN HCL 1 MG CAP PO SCH (09:16)
[2021-04-27] MEDS: ENOXAPARIN 40 MG/0.4 ML SQ SCH (09:16)
[2021-04-27] MEDS: hydroCHLOROthiazide 25 MG TAB PO SCH (09:16)
[2021-04-27] MEDS: lisinopriL 20 MG TAB PO SCH (09:16)
[2021-04-27] MEDS: ASPIRIN EC 81 MG TAB PO SCH (09:17)
[2021-04-27] MEDS: allopurinoL 100 MG TAB PO SCH (09:17)
[2021-04-27 13:49] VITALS: BP 126/58
--- NOTE | 2021-04-27 21:22 | P.DS ---
Admission Date: 04/27/21 Discharge Date: 04/27/21 Primary Care Provider: Dr. Magana Disposition: ROUTINE DISCHARGE Discharge Condition: GOOD Reason for Admission: Uncontrolled hypertension, chest pain Consultations: Cardiology - Dr. Khan Procedures: CXR (04/25): The lungs appear clear of acute infiltrate. The heart is moderately enlarged. Aorta is tortuous/ectatic IMPRESSION: No acute abnormalities displayed TTE (04/26): normal LVEF/function (58%), no wall motion abnormality. no effusion. mitral annular calcification. Problem List Uncontrolled hypertension / hypertensive crisis Depression Colon cancer Aortic valve stenosis Diabetes mellitus type 2, non-insulin dependent Hyperlipidemia Brief History of Present Illness: 89-year-old female with history of hypertension, diabetes mellitus type 2, depression/anxiety, CAD status post stents presents emergency department for uncontrolled hypertension and intermittent chest pain. Patient reports intermittent chest pain over the course of the last 1 week more often than normal requiring her take nitroglycerin, pain has been relieved with nitroglycerin. Patient reports her blood pressure in the 200 systolic range tonight which brought her into the emergency department for evaluation. Labs significant for magnesium 1.6 hemoglobin 10.6 hematocrit 31.5 EKG without any acute changes chest x-ray unremarkable. Patient was given multiple rounds of labetalol IV and blood pressure still was significantly elevated, ED provider wishes to admit under observation for further evaluation and management. Hospital Course: Chest pain evaluated by EKG, troponin, and echo - all negative for ischemia. Cardiology was consulted, recommended no further workup at this time. She was restarted on her home anti-hypertensives and norvasc 10mg was added with improvement of her blood pressure. She was discharged to follow up with her PCP in 3-5 days, and Cardiology Vital Signs/Physical Exam: Temp Pulse Resp BP Pulse Ox 96.9 F 75 16 126/58 L 99 04/27/21 12:00 04/27/21 12:00 04/27/21 12:00 04/27/21 12:04/27/21 12:00 General: Alert, In no apparent distress, Oriented x3 HEENT: Mucous membr. moist/pink, Sclerae nonicteric Respiratory: Clear to auscultation bilaterally, Normal air movement Cardiovascular: No edema, Regular rate/rhythm, Normal S1 S2, Systolic murmur Gastrointestinal: Soft and benign, Non-distended, No tenderness Musculoskeletal: No erythema Integumentary: No rashes, No significant lesion Neurological: Normal speech, Normal affect Laboratory Data at Discharge: WBC 8.40 K/uL (4.3-10.9) 04/27/21 05:11 Hgb 10.7 g/dL (12.0-15.0) L 04/27/21 05:11 Hct 30.8 % (36.0-45.0) L 04/27/21 05:11 Plt Count 198 K/uL (152-406) 04/27/21 05:11 PT 11.9 SECONDS (9.5-12.5) 04/25/21 20:19 INR 1.03 04/25/21 20:19 Sodium 140 mmol/L (136-145) 04/27/21 05:11 Potassium 3.7 mmol/L (3.5-5.1) 04/27/21 05:11 BUN 14 mg/dL (7-18) 04/27/21 05:11 Creatinine 0.89 mg/dL (0.55-1.3) 04/27/21 05:11 Glucose 113 mg/dL (74-106) H 04/27/21 05:11 Magnesium 1.9 mg/dL (1.8-2.4) 04/27/21 05:11 Total Bilirubin 0.4 mg/dL (0.2-1.0) 04/27/21 05:11 AST 15 U/L (15-37) 04/27/21 05:11 ALT 17 U/L (12-78) 04/27/21 05:11 Alkaline Phosphatase 107 U/L (45-117) 04/27/21 05:11 Troponin I < 0.02 ng/mL (0.0-0.045) 04/26/21 14:49 Triglycerides 89 mg/dL (<150) 04/26/21 05:32 Cholesterol 158 mg/dL (<200) 04/26/21 05:32 HDL Cholesterol 83 mg/dL (40-60) H 04/26/21 05:32 Cholesterol/HDL Ratio 1.90 04/26/21 05:32 Home Medications: Allopurinol 100 mg PO DAILY 04/26/21 Aspirin [Aspirin EC 81 MG] 81 mg PO DAILY 04/26/21 Atenolol [Tenormin] 50 mg PO DAILY 04/26/21 Atorvastatin Calcium [Lipitor*] 10 mg PO BEDTIME 04/26/21 Cyanocobalamin [Vitamin B-12*] 1,000 mcg PO DAILY 04/26/21 Lisinopril [Zestril] 40 mg PO DAILY 04/26/21 Metformin HCl [Glucophage*] 850 mg PO BIDWM 04/26/21 Terazosin HCl 2 mg PO BID 04/26/21 hydroCHLOROthiazide [Hydrochlorothiazide] 25 mg PO DAILY 04/26/21 Amlodipine [Norvasc*] 10 mg PO DAILY 30 Days #30 tab 04/27/21 New Medications: Amlodipine [Norvasc*] 10 mg PO DAILY 30 Days #30 tab Physician Discharge Instructions: PROBLEM: Uncontrolled Hypertension GOAL: Clear understanding of disease process INSTRUCTIONS: Diet: diabetic Activity: Fall precautions If you have any questions regarding your stay call [phone] If your symptoms worsen call 911 or go to the ED. You were found to have high blood pressure and chest pain. Your chest pain was evaluated with normal cardiac enzymes, normal echocardiogram, and EKG. Cardiology was consulted. Recommended addition of norvasc to your home medications. Your blood pressure improved as did your symptoms. You are discharged to resume your home medications with addition of norvasc 10mg daily. follow up with your PCP in 3-5 days. follow up with your [employer] [employer] in 1-2 weeks. Diet: ADA Activity: Fall precautions Followup: Cullen Khan MD [ACTIVE - CAN ADMIT] - NONE,NONE [Primary Care Provider] - Time spent managing pt's care (in minutes): 40
--- NOTE | 2021-04-29 13:32 | PN ---
Date of Progress Note: 04/27/2021 Subjective: Ms. Myles came in with hypertensive crisis, is back on atenolol, lisinopril, terazosin, and hydrochlorothiazide and we need to increase Norvasc regimen. Echocardiogram showed m itral annular calcification, normal left ventricular size and function, normal wall motion abnormalit ies. No left ventricular hypertrophy. The patient's blood pressure has improved. I am comfortable with her going home whenever it is okay with Dr. Del Toro. I will see her in the hospital as an outpati ent. HIWOT/MAG Voice ID: [id number] Report ID: [id number]
== END 2021-04-27 14:54 | disposition home or self-care (01) | DRG 305 ==
LOC: ER 20:13 → 2ND 04-26 15:24 → OBSVTOIN 04-27 08:45
PROVIDERS: ADMIT Hospitalist; ATTEND Hospitalist
DX: I16.9 Hypertensive crisis, unspecified (principal); I10 Essential (primary) hypertension; F32.9 Major depressive disorder, single episode, unspecified; I35.0 Nonrheumatic aortic (valve) stenosis; E11.9 Type 2 diabetes mellitus without complications; E78.5 Hyperlipidemia, unspecified; I25.10 Atherosclerotic heart disease of native coronary artery without angina pectoris; Z95.5 Presence of coronary angioplasty implant and graft; Z20.822 Contact with and (suspected) exposure to COVID-19; Z96.652 Presence of left artificial knee joint; Z90.49 Acquired absence of other specified parts of digestive tract; Z85.038 Personal history of other malignant neoplasm of large intestine
CPT/HCPCS: 36415; 71045; 80048; 80053; 80061; 80076; 81003; 82947; 83735; 83880; 84439; 84443; 84484; 85025; 85610; 93005; 93306; 99284; J0360; J1650; J3475; U0003